=== PATIENT | male | born 1960 | race Caucasian/White ===

== ENCOUNTER 2023-04-20 12:58 | Outpatient (OUT) | payer OTHER, SELFPAY ==
--- NOTE | 2023-04-20 14:21 | RESP.RT ---
See scanned chart
--- NOTE | 2023-04-23 08:26 | W.PM.PROCNOT ---
Date of procedure: 04/20/23 Procedure: 6-Minute Walk Test Indication: Chronic respiratory failure with hypoxia Baseline data: Initial blood pressure: 111/71 Initial heart rate: 80 Initial oxygenation: SpO2 92% on room air. Initial Hiral score: 0 MMRC: 2 Procedure: A 6-Minute Walk Test was initiated according to standard protocol. The patient ambulated for a total of 6 minutes with the lowest documented SpO2 measured at 89% on room air with a maximum heart rate of 103. The maximum Hiral score was 9. Symptoms reported: Dyspnea and weakness. During recovery, blood pressure was 109/69 with a heart rate of 81. SpO2 was 92% on room air, with Hiral score 3. Total number of stops: 2. Total distance walked was 213m, which was 40% of predicted walk distance. Impressions: No ambulatory desaturations. Reduced walk distance. Recommendations: No supplemental oxygen indicated with ambulation. Clinical correlation required.
== END 2023-04-20 12:59 | disposition home or self-care (01) ==
LOC: CARD 13:01
PROVIDERS: Visit Provider Internal Medicine
DX: J96.11 Chronic respiratory failure with hypoxia (principal)
CPT/HCPCS: 94618; 99406

== ENCOUNTER 2023-05-31 08:24 | Outpatient (OUT) | payer OTHER, SELFPAY ==
--- NOTE | 2023-05-31 08:27 | CT_ITS ---
[address] [address] Patient Name: STEFAN VELASQUEZ MRN: [id number] date: 1960 Sex: M Assigned Patient Location: CT Current Patient Location: Accession/Order Number: [id number] Exam Date: 05/31/2023 08:31 Report Date: 06/01/2023 07:11 At the request of: MARY HURST Procedure: CT lung screening low-dose EXAMINATION: CT lung screening low-dose HISTORY: Nicotine Dependence F17.219 COMPARISON: CT chest 11/25/2021 TECHNIQUE: Axial, Coronal, and Sagittal images were created without the administration of IV contrast material. Dose reduction techniques were achieved by using automated exposure control and/or adjustment of mA and/or kV according to patient size and/or use of iterative reconstruction technique. FINDINGS: LUNGS: Area of chronic changes within lateral right lung base which appears slightly more nodular on today's study, 7 mm in diameter. New pleural-based 23 x 10 mm opacity within posterior medial left lung base. Stable areas of scarring throughout the lungs. Moderate emphysematous changes. PLEURA: No mass, effusion, or pneumothorax. VASCULATURE: No abnormality. REHAN: No mass or pathologic adenopathy. MEDIASTINUM: No mass or pathologic adenopathy. CARDIAC: No enlargement, pericardial thickening, or significant calcification. AORTA: No aneurysm or dissection. CHEST WALL: No mass or axillary adenopathy BONES: No bone lesion or fracture. LIMITED ABDOMEN: Stable cyst versus hemangioma within left hepatic lobe. Limited images of the upper abdomen. OTHER: Negative. CT/CT lung screening low-dose IMPRESSION: 1. Lung-RADS Category 3- Probably benign. Probably benign finding(s)- short term follow up suggested; includes nodules with a low likelihood of becoming a clinically active cancer. Six month LDCT. Electronically authenticated by: BRYCE RAMOS Date: 06/01/2023 07:11
== END 2023-05-31 08:25 | disposition home or self-care (01) ==
LOC: CT 08:24
PROVIDERS: Visit Provider Internal Medicine
DX: F17.219 Nicotine dependence, cigarettes, with unspecified nicotine-induced disorders (principal)
CPT/HCPCS: 71271

== ENCOUNTER 2023-11-13 09:48 | Outpatient (OUT) | payer OTHER, SELFPAY ==
--- OUTSIDE RECORDS SUMMARY | 2023-11-13 10:00 | XMS_ITS | CCD ---
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 Franki Rangel III Primary Care [facility] reddy [facility], Dr. Kartik Reese Attending Unavailable Filiberto, Dr. Hunter Attending Unavaila ridge De Los Santos, Dr. Hunter Attending Unavaila ridge De Los Santos, Dr. Hunter Attending Unavaila Ami Webb Attending Unavailable Ami Wood Attending Unavailable Ami Wood Referring Unavailable Juan Carlos FAITH, Dr. Franki Barclay Primary Care Jazmine blakely Unavailable Unavailable Franki Rangel DO Primary Care Provider Franki Ragnel DO Primary Care Provider [phone] Johanna Lang Unavailable Unavailable Festus Bryan Consulting Unavailable Kevyn Tapia Attending Unavailable eKvyn Tapia Admitting Unavailable Festus Bryan Consulting Unavailable Festus Bryan Consulting Unavailable Camille Muniz Attending Unavailable Medications Current Medications Medication Drug Class(es) Dates Sig (Normalized) Sig (Original) acetaminophen 325 mg oral tablet (1 source) Start: 11-10-2022 take 2 tablets by mouth every six hours as needed for pain acetaminophen 325 mg Tab 650 mg = 2 tab(s), Oral, q6hr, PRN Pain, Refills(s) 0 Start Date: 11/10/22 Status: Ordered aspirin 81 mg delayed release oral tablet (15 sources) Platelet Aggregation Inhibitor, Nonsteroidal Anti-inflammatory Drug Start: 07-18-2021 take 1 tablet by mouth once daily aspirin 81 mg Oral EC Tab 81 mg = 1 tab(s), Oral, Daily, # 30 tab(s), Refills(s) 0, Pharmacy: [facility] #[id number], 185, cm, 11/08/22 4:57:00 EDT, Height/Length Dosing, 86, kg, 11/08/22 4:57:00 EDT, Weight Dosing Start Date: 11/10/22 Status: Ordered take 2 tablets by mouth once radha ly aspirin 81 mg EC tablet Take 2 tablets (162 mg) by mouth once daily. 0 Active atorvastatin 20 mg oral tablet (15 sources) HMG-CoA Reductase Inhibitor Start: 08-20-2017 take 1 tablet by mouth once daily atorvastatin 20 mg Tab 20 mg = 1 tab(s), Oral, Daily, Refills(s) 0, High cholesterol Start Date: 08/20/17 Status: Ordered azithromycin 500 mg oral tablet (2 sources) Macrolide Antimicrobial Start: 11-10-2022 End: 11-13-2022 take 1 tablet by mouth once daily azithromycin 500 mg oral tablet 500 mg = 1 tab(s), Oral, Daily, X 3 day(s), # 3 tab(s), Refills(s) 0, Pharmacy: [facility] #[id number], 185, cm, 11/08/22 4:57:00 EDT, Height/Length Dosing, 86, kg, 11/08/22 4:57:00 EDT, Weight Dosing Start Date: 11/10/22 Stop Date: 11/13/22 Status: Ordered Start: 07-08-2022 End: 07-13-2022 take 1 tablet by mouth once daily azithromycin 500 mg oral tablet 500 mg = 1 tab(s), Oral, Daily, X 5 day(s), # 5 tab(s), Refills(s) 0, Pharmacy: [facility] #[id number], 185, cm, 07/05/22 1:16:00 EST, Height/Length Dosing, 86.8, kg, 07/05/22 1:16:00 EST, Weight Dosing Start Date: 07/08/22 Stop Date: 07/13/22 Status: Ordered escitalopram 10 mg oral tablet (8 sources) Serotonin Reuptake Inhibitor Start: 08-15-2021 take 1 tablet by mouth once daily escitalopram 10 mg Tab 10 mg = 1 tab(s), Oral, Daily, Refills(s) 0, Depression Start Date: 08/15/21 Status: Ordered take 1 tablet by mouth once marlyn y escitalopram (Lexapro) 20 mg tablet Take 1 tablet (20 mg) by mouth once daily. 0 Active 12 hr guaiFENesin 600 mg extended release oral tablet (4 sources) Start: 11-10-2022 take 1 tablet by mouth twice daily Mucinex 600 mg Tab-ER 600 mg = 1 tab(s), Oral, BID, # 60 tab(s), Refills(s) 0, Pharmacy: [facility] #[id number], 185, cm, 11/08/22 4:57:00 EDT, Height/Length Dosing, 86, kg, 11/08/22 4:57:00 EDT, Weight Dosing Start Date: 11/10/22 Status: Ordered Start: 07-08-2022 take [address] [facility] twice daily Mucinex 600 mg Tab-ER 1,200 mg = 2 tab(s), Oral, BID, # 20 tab(s), Refills(s) 0, Pharmacy: [facility] #[id number], 185, cm, 07/05/22 1:16:00 EST, Height/Length Dosing, 86.8, kg, 07/05/22 1:16:00 EST, Weight Dosing Start Date: 07/08/22 Status: Ordered 24 hr isosorbide mononitrate 30 mg extended release oral tablet (16 sources) Nitrate Vasodilator Start: 07-18-2021 End: 05-08-2023 take 1 tablet by mouth once daily isosorbide mononitrate 30 mg ER Tab 30 mg = 1 tab(s), Oral, Daily, # 30 tab(s), Refills(s) 0, Pharmacy: [facility] #[id number], 193, cm, 07/18/21 7:39:00 EST, Height/Length Dosing, 94.4, kg, 07/18/21 7:39:00 EST, Weight Dosing Start Date: 07/18/21 Status: Ordered methylPREDNISolone 4 mg oral tablet (2 sources) Corticosteroid Start: 07-08-2022 End: 07-14-2022 Medrol 4 mg Tab = 1 packet(s), Oral, As Directed, as directed on package labeling, X 6 day(s), # 21 tab(s), Refills(s) 0, Pharmacy: [facility] #[id number], 185, cm, 07/05/22 1:16:00 EST, Height/Length Dosing, 86.8, kg, 07/05/22 1:16:00 EST, Weight Dosing Start Date: 07/08/22 Stop Date: 07/14/22 Status: Ordered Nicotine System Kit transdermal film, extended release (1 source) Start: 11-10-2022 End: 12-08-2022 Nicotine System Kit transdermal film, extended release 1 EA, TransDermal, Daily for 28 day(s), 1 kit(s), Refill(s) 0, [facility] #[id number], 185, cm, 11/08/22 4:57:00 EDT, Height/Length Dosing, 86, kg, 11/08/22 4:57:00 EDT, Weight Dosing Start Date: 11/10/22 Stop Date: 12/08/22 Status: Ordered Nitro 0.4 mg Tab (5 sources) Start: 01-31-2021 Nitro 0.4 mg Tab = 1 tab(s), SubLingual, q5min, PRN Chest pain, # 25 tab(s), Refills(s) 3 Start Date: 01/31/21 Status: Ordered nitroglycerin 0.4 mg/actuat mucosal spray (8 sources) Nitrate Vasodilator Start: 01-31-2021 Nitro 0.4 mg Tab = 1 tab(s), SubLingual, q5min, PRN Chest pain, # 25 tab(s), Refills(s) 3 Start Date: 01/31/21 Status: Ordered nitroglycerin (N itrostat) 0.[address] 1 tablet (0.4 mg) under the tongue every 5 minutes if needed for chest pain. FOR UP TO 3 DOSES NEEDED FOR CHEST PAIN.CALL 911 IF PAIN PERSISTS. 0 Active pantoprazole 40 mg delayed release oral tablet (3 sources) Proton Pump Inhibitor Start: 11-10-2022 End: 12-10-2022 take 1 tablet by mouth once daily Pantoprazole [address] Tab 40 mg = 1 tab(s), Oral, Daily, X 30 day(s), # 30 tab(s), Refills(s) 0, Pharmacy: [facility] #[id number], 185, cm, 11/08/22 4:57:00 EDT, Height/Length Dosing, 86, kg, 11/08/22 4:57:00 EDT, Weight Dosing Start Date: 11/10/22 Stop Date: 12/10/22 Status: Ordered Start: 01-09-2021 take 1 tablet by benny th once daily Pantoprazole [address] Tab 40 mg = 1 tab(s), Oral, Daily, # 30 tab(s), Refills(s) 0, Pharmacy: [facility] #[id number], 193, cm, 01/08/21 21:30:00 EDT, Height/Length Dosing, 97.5, kg, 01/08/21 21:30:00 EDT, Weight Dosing Start Date: 01/09/21 Status: Ordered polyethylene glycol 3350 744762 mg / potassium chloride 1480 mg / sodium bicarbonate 5720 mg / sodium chloride 59025 mg powder for oral solution (2 sources) Osmotic Laxative Start: 07-13-2022 NuLYTELY Reeder oral powder for reconstitution See Instructions, 1 EA, Refill(s) 0, Prior to colonoscopy., [facility] #[id number], 185, cm, 07/13/22 9:08:00 EST, Height/Length Dosing, 86.7, kg, 07/13/22 9:08:00 EST, Weight Dosing Start Date: 07/13/22 Status: Ordered predniSONE 20 mg oral tablet (2 sources) Start: 10-25-2023 End: 10-30-2023 take 3 tablets by mouth once daily predniSONE 20 mg Tab 60 mg = 3 tab(s), Oral, Daily, X 5 day(s), # 15 tab(s), Refills(s) 0, Pharmacy: [facility]/pharmacy #[id number], 193, cm, 10/25/23 0:25:00 EDT, Height/Length Dosing, 98, kg, 10/25/23 0:25:00 EDT, Weight Dosing Start Date: 10/25/23 Stop Date: 10/30/23 Status: Ordered Start: 11-10-2022 predniSONE 10 mg Tab 0 = 1 -, Oral, As Directed, Take 5 tabs by mouth daily x5 days, 4 daily x5 days, 3 daily x5 days, 2 daily x5 days, then 1 tab daily x5 days., # 75 tab(s), Refills(s) 0, Pharmacy: [facility] #[id number], 185, cm, 11/08/22 4:57:00 EDT, Height/Lengt... Start Date: 11/10/22 Status: Ordered 12 hr ranolazine 500 mg extended release oral tablet (14 sources) Anti-anginal Start: 01-08-2023 End: 05-08-2023 take 1 tablet by mouth every twelve hours ranolazine (Ranexa) 500 mg 12 hr tablet Indications: Coronary artery disease involving [employer] [employer] coronary artery of [place] heart with other form of angina pectoris (CMS/HCC) , Prinzmetal angina (CMS/HCC) Take 1 tablet (500 mg) by mouth every 12 hours. 180 tablet 3 05/08/2023 Active Start: 07-18-2021 take 1 tablet by benny th twice daily ranolazine 500 mg oral ER Tab 500 mg = 1 tab(s), Oral, BID, # 60 tab(s), Refills(s) 0, Pharmacy: [facility] #[id number], 193, cm, 07/18/21 7:39:00 EST, Height/Length Dosing, 94.4, kg, 07/18/21 7:39:00 EST, Weight Dosing Start Date: 07/18/21 Status: Ordered Trelegy Ellipta inhalation powder (6 sources) Start: 08-09-2020 take 1 puff(s) by inhalation once daily Trelegy Ellipta inhalation powder = 1 puff(s), Inhalation, Daily, Refills(s) 0, COPD Start Date: 08/09/20 Status: Ordered Ventolin HFA 90 mcg/inh Aerosol (6 sources) Start: 09-21-2017 take 2 puff(s) by inhalation every four hours for wheezing Ventolin HFA 90 mcg/inh Aerosol 2 puff(s), Inhalation, q4hr for wheezing, 18 gram, Refill(s) 0 Start Date: 09/21/17 Status: Ordered Completed/Discontinued Medications Medication Drug Class(es) Dates Sig (Normalized) Sig (Original) albuterol 0.833 mg/ml / ipratropium bromide 0.167 mg/ml inhalation solution (12 sources) Anticholinergic, beta2-Adrenergic Agonist Start: 12-07-2021 take 3 mL by inhalation four times daily Ipratropium-Albut jay 0.5-2.5 (3) MG/3ML Inhalation Solution INHALE 3 ML VIA NEBULIZER FOUR TIMES DAILY Quantity: 360 Refills: 0 Ordered: 03-Jan-2022 DO Start : 07-Dec-2021 Active Start: 08-16-2021 take 3 mL by inhalat ion four times daily DuoNeb 2.5 mg-0.5 mg/3 mL Soln-Inh 3 mL, Inhalation, QID Shortness of breath or wheezing, Refill(s) 0 Start Date: 08/16/21 Status: Ordered 30 actuat fluticasone furoate 0.1 mg/actuat / umeclidinium 0.0625 mg/actuat / vilanterol 0.025 mg/actuat dry powder inhaler (6 sources) Anticholinergic, Corticosteroid, beta2-Adrenergic Agonist Start: 12-17-2021 Trelegy Ellipta 100-62.5-25 MCG/ACT Inhalation Aerosol Powder Breath Activated Quantity: 60 Refills: 0 Ordered: 17-Dec-2021 DO Start : 17-Dec-2021 Active fluticasone-umec lidin-vilanter (Trelegy Ellipta) 100-62.5-25 mcg blister with device Inhale once daily. 0 Active omeprazole 40 mg delayed release oral capsule (8 sources) Proton Pump Inhibitor Start: 07-13-2022 End: 10-11-2022 take 1 capsule by mouth once daily Omeprazole 40 MG Oral Capsule Delayed Release TAKE 1 CAPSULE Daily Quantity: 30 Refills: 0 Ordered: 13-Jul-2022 DO Start : 13-Jul-2022 Active Problems Active Problems Problem Classification Problem Date Documented Date Episodic/Chronic Abdominal pain (5 sources) Epigastric pain; Translations: [Epigastric pain] Onset: 07-13-20 Episodic Chronic obstructive pulmonary disease and bronchiectasis (13 sources) Chronic obstructive lung disease; Translations: [Chronic obstructive pulmonary disease, unspecified] Onset: 05-24-20 Chronic Coronary atherosclerosis and other heart disease (20 sources) Prinzmetal angina; 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] Onset: 11-09-19 Chronic Cystic fibrosis (1 source) Cystic fibrosis 10-25-2023 Chronic Deficiency and other anemia (1 source) Anemia; Translations: [Anemia, unspecified] Onset: 11-10-19 Episodic Disorders of lipid metabolism (20 sources) Hyperlipidemia; Translations: [Other and unspecified hyperlipidemia] Onset: 05-24-20 Chronic Esophageal disorders (20 sources) Gastroesophageal reflux disease without esophagitis; Translations: [Gastro-esophageal reflux disease without esophagitis] Onset: 05-24-20 Chronic Essential hypertension (9 sources) Essential hypertension; Translations: [Essential (primary) hypertension] Onset: 05-24-20 Chronic Mood disorders (1 source) Depressive disorder; Translations: [Depression, unspecified] Onset: 11-09-19 Chronic Nonspecific chest pain (10 sources) Chest pain; Translations: [Chest pain, unspecified] Onset: 05-06-20 Resolved : 05-08-2005-08-2023 Episodic Other aftercare (1 source) Long-term current use of drug therapy; Translations: [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] Onset: 11-10-19 Episodic Other and unspecified benign neoplasm (11 sources) History of polyp of colon; Translations: [Personal history of colonic polyps] Onset: 07-13-2004-20-2021 Episodic Other circulatory disease (6 sources) Low blood pressure; Translations: [Hypotension, unspecified] Onset: 05-06-2005-06-2023 Episodic Other gastrointestinal disorders (7 sources) Dysphagia; Translations: [Dysphagia, unspecified] Onset: 07-13-2004-20-2021 Episodic Other gastrointestinal disorders (1 source) H/O: gastrointestinal disease; Translations: [Personal history of other diseases of the digestive system] Onset: 07-13-20 Episodic Other hematologic conditions (1 source) Abnormal finding on evaluation procedure; Translations: [Other specified abnormalities of plasma proteins] Onset: 07-05-20 Episodic Other lower respiratory disease (8 sources) Fibrosis of lung; Translations: [Pulmonary fibrosis, unspecified] Onset: 05-24-20 Chronic Other lower respiratory disease (9 sources) Dyspnea on exertion; Translations: [Other respiratory abnormalities] Onset: 05-06-2005-06-2023 Episodic Other nutritional; endocrine; and metabolic disorders (1 source) Body mass index 25-29 - overweight; Translations: [Body Mass Index 25.0-25.9, adult] Episodic Other nutritional; endocrine; and metabolic disorders (9 sources) Overweight; Translations: [Overweight] Onset: 05-06-2005-06-2023 Episodic Other nutritional; endocrine; and metabolic disorders (8 sources) Overweight in adulthood with body mass index of 25 or more but less than 30; Translations: [Body Mass Index 25.0-25.9, adult] Onset: 05-06-2005-06-2023 Episodic Other nutritional; endocrine; and metabolic disorders (1 source) Abnormal weight loss; Translations: [Abnormal weight loss] Onset: 07-13-20 Episodic Other nutritional; endocrine; and metabolic disorders (4 sources) Unintentional weight loss 07-13-2022 Episod ic Residual codes; unclassified (3 sources) Tobacco user; Translations: [Tobacco use] Onset: 05-24-20 Episodic Residual codes; unclassified (2 sources) Procedure carried out on subject; Translations: [Encounter for prophylactic measures, unspecified] Onset: 05-24-20 Episodic Residual codes; unclassified (6 sources) FH: Hypercholesterolemia 10-17-2013 Episodi c Residual codes; unclassified (6 sources) Harmful pattern of use of nicotine 07-18-2021 Episodic Residual codes; unclassified (6 sources) Body mass index 20-24 - normal; Translations: [Body Mass Index between 19-24, adult] Onset: 05-06-2005-06-2023 Episodic Respiratory failure; insufficiency; arrest (adult) (8 sources) Home oxygen supply; Translations: [Chronic hypoxemic respiratory failure] Onset: 07-05-2003-21-2019 Chronic Substance-related disorders (17 sources) Smokes tobacco daily; Translations: [Tobacco use disorder] Onset: 05-06-2003-21-2019 Chronic Comment on above: 1-2 cigarettes daily ; Added secondary to d ocumentation in Social History. 3-4 cigarettes daily ; Past or Other Problems Problem Classification Problem Date Documented Date Episodic/Chronic Acute myocardial infarction (8 sources) Non-ST elevation (NSTEMI) myocardial infarction; Translations: [Myocardial infarction] Onset: 05-24-2022 Resolved: 05-08-2023 Chronic Chronic obstructive pulmonary disease and bronchiectasis (6 sources) Chronic obstructive pulmonary disease and bronchiectasis 09-15-2021 Unclassified (2 sources) Onset: 05-08-2023 05-08-2023 Results Test Name Value Interpretation Reference Range Facility [facility] 10-25-2023 Anion gap [Moles/Vol] 12 mmol/L Normal 6-16 [facility] Comment on above: Performed By: #### 2 [id number], [id number], 4561500, 52395228, 65260433, 20460664 ####[facility] [address] [place] [address] Calcium [Mass/Vol] 9.1 mg/dL Normal 8.9-11.1 [facility] Comment on above: Performed By: #### 2 231122, [id number], 5140207, 38532674, 92201495, 77223129 ####[facility] [address] [place] [address] Chloride [Moles/Vol] 105 mmol/L Normal 101-111 [facility] Comment on above: Performed By: #### 2 338340, [id number], 2520366, 09279631, 34781441, 02596060 ####[facility] [address] [place] [address] CO2 [Moles/Vol] 26 mmol/L Normal 21-31 [facility] Comment on above: Performed By: #### 2 961385, 69039938, 0033816, 37378240, 11436591, 05241644 ####[facility] [address] [place] [address] Creatinine [Mass/Vol] 0.8 mg/dL Normal 0.5-1.3 [facility] Comment on above: Performed By: #### 2 298033, 95756781, 0442971, 78238200, 36696622, 09650366 ####[facility] [address] [place] [address] Glucose [Mass/Vol] 94 mg/dL Normal 55-199 [facility] Comment on above: Performed By: #### 2 323878, 51227274, 8244908, 67120119, 26170811, 84526187 ####[facility] [address] [place] [address] Potassium [Moles/Vol] 4.0 mmol/L Normal 3.5-5.3 [facility] Comment on above: Performed By: #### 2 740478, 39559700, 3588355, 13253298, 26944677, 33943359 ####[facility] [address] [place] [address] Sodium [Moles/Vol] 139 mmol/L Normal 135-145 [facility] Comment on above: Performed By: #### 2 863932, 20721555, 7642574, 14133550, 46484169, 90900283 ####[facility] [address] [place] [address] Urea nitrogen [Mass/Vol] 7 mg/dL Normal 5-21 [facility] Comment on above: Performed By: #### 2 226438, 34778375, 7094192, 08363942, 10573851, 51837332 ####[facility] [address] [place] [address] Urea nitrogen/Creatinine [Mass ratio] 9 No Units Low 10-20 [facility] Comment on above: Performed By: #### 2 563732, 06329640, 6348762, 32893809, 01675682, 33496800 ####[facility] [address] [place] [address] BNPon 10-25-2023 Int Ctr BNP Pass Normal [facility] Comment on above: Performed By: #### 2 841817, 32818743, 5102112, 81251463, 56298949, 68217695 ####[facility] [address] [place] [address] Natriuretic peptide B (Bld) [Mass/Vol] 21 pg/mL Normal 5-80 [facility] Comment on above: Performed By: #### 2 591508, 81397718, 3135452, 21454725, 49649372, 54389264 ####[facility] [address] [place] [address] Blood Gas Art, with Lytes, G deisy, [place] 10-25-2023 a/A Ratio Art 35.00 % Normal >=0.80 [facility] Comment on above: Performed By: #### 4 [id number] ####[facility] [address] [place] [address] AaDO2 Art 132.8 mmHg High 5.0-15.0 [facility] Comment on above: Performed By: #### 4 [id number] ####[facility] [address] [place] [address] [place] Test Positive Normal [facility] Comment on above: Performed By: #### 4 [id number] ####[facility] [address] [place] [address] Base Excess Arterial 2.3 mmol/L Low >=2.8 [facility] Comment on above: Performed By: #### 4 [id number] ####[facility] [address] [place] [address] cCa2+ Art 4.69 mg/dL Normal 4.40-5.30 [facility] Comment on above: Performed By: #### 4 [id number] ####[facility] [address] [place] [address] cCl- Art 105.0 mmol/L Normal 101.0-111. 0 [facility] Comment on above: Performed By: #### 4 [id number] ####[facility] [address] [place] [address] cGlu Art 99 mg/dL Normal 55-99 [facility] Comment on above: Performed By: #### 4 [id number] ####[facility] [address] [facility] [place] [address] cK+ Art 3.7 mmol/L Normal 3.5-5.3 [facility] Comment on above: Performed By: #### 4 [id number] ####[place] [address] [place] [address] cLac Art .7 mmol/L Normal .5-2.2 [facility] Comment on above: Performed By: #### 4 [id number] ####[place] [address] [facility] [place] [address] manager intel+ Art 140.0 mmol/L Normal 135.0-145. 0 [facility] Comment on above: Performed By: #### 4 [id number] ####[place] [address] [facility] [place] [address] Device Cannula Normal [facility] Comment on above: Performed By: #### 4 [id number] ####[place] [address] [facility] [place] [address] Drawn by tmj Invalid Interpretation Code [facility] Comment on above: Performed By: #### 4 [id number] ####[place] [address] [place] [address] FCOHb Art 2.9 % Normal 1.5-4.9 [facility] Comment on above: Result Comment: Refe rence range Nonsmoker <1.5% Smoker <5.0% Heavy Smoker <9.0% Performed By: #### 4 [id number] ####[facility] [address] [place] [address] FIO2 BG 36 Invalid Interpretation Code [facility] Comment on above: Performed By: #### 4 [id number] ####[facility] [address] [place] [address] Flow 4 Invalid Interpretation Code [facility] Comment on above: Performed By: #### 4 [id number] ####[facility] [address] [place] [address] FO2Hb Art 92.5 % Low 93.0-100.0 [facility] Comment on above: Performed By: #### 4 [id number] ####[address] [address] HCO3 (Bld) [Moles/Vol] 26.3 mmol/L High 22.0-26.0 [facility] Comment on above: Performed By: #### 4 [id number] ####[address] [address] Hemoglobin (Bld) [Mass/Vol] 14.0 g/dL Normal 12.0-17.0 [facility] Comment on above: Performed By: #### 4 [id number] ####[address] [address] Oxygen saturation in Blood 95.3 % Normal 95.0-100.0 [facility] Comment on above: Performed By: #### 4 [id number] ####[address] [address] P CO2 Arterial 41.9 mmHg Normal 35.0-45.0 [facility] Comment on above: Performed By: #### 4 [id number] ####[address] [address] P O2 Arterial 71.5 mmHg Low 80.0-100.0 [facility] Comment on above: Performed By: #### 4 [id number] ####[address] [address] pH Arterial 7.419 Normal 7.350-7.45 0 [facility] Comment on above: Performed By: #### 4 [id number] ####[address] [address] Sample Site R Radial Normal [facility] Comment on above: Performed By: #### 4 [id number] ####[address] [address] Sample Type Arterial Draw Normal [facility] Comment on above: Performed By: #### 4 [id number] ####[address] [address] CBC w/ Auto Diffon 4 Basophils/100 WBC (Bld) 1.1 % Normal 0.0-2.0 [facility] Comment on above: Performed By: #### 2 474639, 07993360, 5029049, 34129404, 58835585, 66416166 ####[address] [address] Basophils/Leukocytes Auto (Bld) [Pure # fraction] 0.1 E9/L Normal 0.0-0.2 [facility] Comment on above: Performed By: #### 2 687916, 41055268, 8975983, 76515407, 39577209, 96792297 ####[address] [address] Eosinophils (Bld) [#/Vol] 0.3 E9/L Normal 0.0-0.5 [facility] Comment on above: Performed By: #### 2 878957, 05802725, 3268224, 25933620, 47916278, 07322379 ####[address] [address] Eosinophils/100 WBC (Bld) 2.7 % Normal 0.0-8.0 [facility] Comment on above: Performed By: #### 2 423082, 60811434, 9443019, 53777347, 24353521, 01583095 ####[address] [address] Erythrocyte distribution width (RBC) [Ratio] 13.8 % Normal 10.9-14.2 [facility] Comment on above: Performed By: #### 2 739569, 62007596, 7994799, 07214482, 33648211, 71346495 ####[address] [address] Hematocrit (Bld) [Volume fraction] 41.4 % Normal 37.7-49.0 [facility] Comment on above: Performed By: #### 2 665984, 52465824, 1296833, 76779125, 59138638, 82230083 ####[facility] [address] [place] [address] Hemoglobin (Bld) [Mass/Vol] 13.8 g/dL Normal 13.5-17.5 [facility] Comment on above: Performed By: #### 2 007037, 18831678, 3029084, 05002076, 81825522, 92269672 ####[place] [address] [place] [address] Lymphocytes (Bld) [#/Vol] 3.1 E9/L Normal 1.0-4.0 [facility] Comment on above: Performed By: #### 2 [id number], [id number], 9069326, [id number], [id number], [id number] ####[address] [address] Lymphocytes/100 WBC (Bld) 27.7 % Normal 14.0-50.0 [facility] Comment on above: Performed By: #### 2 852815, [id number], 7317723, 91879900, 64597420, [id number] ####[address] [address] MCH (RBC) [Entitic mass] 32.4 pg Normal 27.0-34.0 [facility] Comment on above: Performed By: #### 2 614799, 80312064, 5583672, 30487887, 86715976, [id number] ####[address] [address] MCHC (RBC) [Mass/Vol] 33.5 g/dL Normal 31.4-36.0 [facility] Comment on above: Performed By: #### 2 519470, [id number], 5227562, 79295380, 85120595, [id number] ####[place] [address] [address] MCV (RBC) [Entitic vol] 96.9 fL Normal 80.0-100.0 [facility] Comment on above: Performed By: #### 2 012475, 73487205, 0821301, 82948879, 02857598, 81741739 ####[address] [address] Monocytes (Bld) [#/Vol] 1.0 E9/L Normal 0.2-1.0 [facility] Comment on above: Performed By: #### 2 436300, 49148149, 4918892, 79005197, 47849427, 27448814 ####[address] [address] Neutrophils (Bld) [#/Vol] 6.7 E9/L Normal 2.0-7.5 [facility] Comment on above: Performed By: #### 2 948669, 42124702, 2608690, 98697526, 12758270, 26990885 ####[address] [address] Neutrophils/100 WBC (Bld) 59.6 % Normal 36.0-75.0 [facility] Comment on above: Performed By: #### 2 558568, 33293149, 5397501, 33971793, 43097703, 08098680 ####[address] [address] Platelet mean volume (Bld) [Entitic vol] 10.8 fL Normal 6.4-10.8 [facility] Comment on above: Performed By: #### 2 350264, 22710186, 0626716, 53588217, 65297593, 81656768 ####[address] [address] Platelets (Bld) [#/Vol] 200.0 E9/L Normal 150.0-500. 0 [facility] Comment on above: Performed By: #### 2 984892, 07917616, 7558469, 50470146, 42333232, 78132164 ####[facility] [address] [place] [address] RBC (Bld) [#/Vol] 4.3 E12/L Normal 4.3-5.9 [facility] Comment on above: Performed By: #### 2 521882, 78223758, 3650662, 35161807, 63270753, 30400559 ####[facility] [address] [place] [address] WBC corrected for nucl RBC Auto (Bld) [#/Vol] 11.2 E9/L High 4.0-11.0 [facility] Comment on above: Performed By: #### 2 632788, 02871932, 0119049, 67533843, 11509336, 97525277 ####[facility] [address] [place] [address] CHEMISTRYOrdered By: Heather Olsen on 10-25-2023 Troponin 11.00 pg/mL Low 15.90 - 38.40 pg/mL [facility] Comment on above: Interpretive Data: T he 95% CI (Confidence Interval) PPV (Positive Predictive Value) for myocardial infarction in females is 38 pg/mL, in males 51 pg/mL. The results should be used in conjunction with clinical conditions of myocardial infarction. (Access High Sensitivity Troponin I Instructions For Use, [place], March 2018) CHEMISTRYOrdered By: SYSTEM SYSTEM on 10-25-2023 Anion gap [Moles/Vol] 12 mmol/L Normal 6 - 16 mEq/L [facility] Calcium [Mass/Vol] 9.1 mg/dL Normal 8.9 - 11. 1 mg/dL [facility] Chloride [Moles/Vol] 105 mmol/L Normal 101 - 1 11 mmol/L [facility] CO2 [Moles/Vol] 26 mmol/L Normal 21 - 31 mmol/L [facility] Creatinine [Mass/Vol] 0.8 mg/dL Normal 0.5 - 1.3 mg/dL [facility] eGFR 100 mL/min/1.73 m2 Normal >=59mL/mi n /1.73 m2 [facility] Glucose [Mass/Vol] 94 mg/dL Normal 55 - 199 mg/dL [facility] Potassium [Moles/Vol] 4.0 mmol/L Normal 3.5 - 5.3 mmol/L [facility] Sodium [Moles/Vol] 139 mmol/L Normal 135 - 145 mmol/L [facility] Troponin 5.30 pg/mL Low 15.90 - 38.40 pg/mL [facility] Comment on above: Interpretive Data: T he 95% CI (Confidence Interval) PPV (Positive Predictive Value) for myocardial infarction in females is 38 pg/mL, in males 51 pg/mL. The results should be used in conjunction with clinical conditions of myocardial infarction. (Access High Sensitivity Troponin I Instructions For Use, [place], March 2018) Urea nitrogen [Mass/Vol] 7 mg/dL Normal 5 - 21 mg/dL [facility] Urea nitrogen/Creatinine [Mass ratio] 9 mg/mg Low 10 - 20 Remisol Chem CHEMISTRYOrdered By: Gallo mckinnon on 10-25-2023 Natriuretic peptide B (Bld) [Mass/Vol] 21 pg/mL Normal 5 - 80 pg/mL [facility] COAGULATIONOrdered By: Gallo Stephenson on 10-25-2023 aPTT Coag (PPP) [Time] 46.4 s High 25.1 - 36.5 second(s) [facility] Comment on above: Interpretive Data: P arameter 15 days - 4 weeks 1 - 5 months 6 - 11 months 1 - 5 years 6 - 10 years 11 - 17 years PTT Mean: 35.4 (27.6-45.6) Mean: 33.5 (24.8-40.7) Mean: 32.4 (25.1-40.7) Mean: 31.6 (24.0-39.2) Mean: 31.6 (26.9-38.7) Mean: 31.0 (24.6-38.4) Pediatric Reference ranges were obtained from a study by Tavon Little et al. prepared from 1437 samples obtained at 7 different centers using the same coagulation reagent and instrumentation as [facility]. Currently there are no coagulation studies available worldwide for children to 14 days, and no normal ranges. Heparin therapeutic range (represented by Anti-Factor Xa activity of 0.2 - 0.4 U/mL) corresponds to PTT of 56.6 - 109.0 sec. INR Coag (PPP) [Relative time] 1.16 {INR} Invalid Interpretation Code [facility] Comment on above: Interpretive Data: I NR results are specifically intended to assess patients stabilized on long-term Anticoagulation therapy suggested INR s Less Intensive Anticoagulation 2.0 3.0 Conventional Range 3.0 4.5 PT Coag (PPP) [Time] 13.0 s High 9.4 - 1 2.5 second(s) [facility] Comment on above: Interpretive Data: 1 5 days - 4 weeks 1 - 5 months 6 -11 months 1 5 years 6 10 years 11 -17 years Mean: 11.2 (9.5 12.6) Mean: 11.0 (9.7 12.8) Mean: 11.0 (9.8 13.0) Mean: 11.3 (9.9 13.4) Mean: 11.7 (10.0 14.6) Mean: 11.8 (10.0 - 14.1) Pediatric Reference ranges were obtained from a study by patricia Casiano al. prepared from 1437 samples obtained at 7 different centers using the same coagulation reagent and instrumentation as [facility]. Currently there are no coagulation studies available worldwide for children to 14 days, and no normal ranges. Consent for Treatmenton 10-05 Consent for Treatment [id number] Normal [facility] Discharge Instructionson Discharge Instructions [id number] Normal [facility] ED Clinical Summaryon 2023 ED Clinical Summary (Inserted Image. Jaclyn ble to display) [place] [id number] ED Clinical Summary Person Information Name: STEFAN WOOD/[facility] Age: 62 Years : 1960 Sex: Male Language: Sammarinese PCP: Franki Rangel III, DO Marital Status: Single MRN: Visit Id: Visit Reason: Headache; Chest pain; Shortness of breath; SOB Speciality: Acuity: 2 Enc Type: Emergency Med Service: Emergency Arrival: 10/25/2023 00:11:56 Discharge: 10/25/2023 14:07:13 LOS: 000 13:56 Checkin: 10/25/2023 00:11:56 Checkout: 10/25/2023 14:07:13 Dispo Type: Home (Routine DC) EVENTS: Event Name Event Status Request Date/Time Start Date/Time Complete Date/Time Arrive Complete 10/25/2023 00:11:56 10/25/2023 00:11:56 10/25/2023 00:11:56 Document Home Meds Request 10/25/2023 00:11:56 Triage Complete 10/25/2023 00:11:56 10/25/2023 00:25:45 10/25/2023 00:25:45 Dr Exam Complete 10/25/2023 00:12:23 10/25/2023 00:12:23 10/25/2023 00:12:23 Registration Complete 10/25/2023 00:12:23 10/25/2023 00:24:41 10/25/2023 02:20:46 EKG Complete 10/25/2023 00:13:20 10/25/2023 00:19:34 RN Exam Complete 10/25/2023 00:23:53 10/25/2023 00:23:53 10/25/2023 00:23:53 Bed Assign Complete 10/25/2023 00:24:41 10/25/2023 00:24:41 10/25/2023 00:24:41 Meds Admin Complete 10/25/2023 00:37:39 10/25/2023 00:55:46 Pending Labs Complete 10/25/2023 00:37:39 10/25/2023 04:47:11 RT Tx/ABG Complete 10/25/2023 00:37:39 10/25/2023 01:04:38 10/25/2023 01:04:38 Lab Complete 10/25/2023 00:37:39 10/25/2023 01:45:42 Patient Care Complete 10/25/2023 00:37:39 10/25/2023 00:50:48 X-Ray Complete 10/25/2023 00:37:39 10/25/2023 01:09:22 RT Request 10/25/2023 00:37:39 RT Tx/ABG Complete 10/25/2023 00:37:41 10/25/2023 01:04:42 10/25/2023 01:04:42 RT Tx/ABG Complete 10/25/2023 00:37:41 10/25/2023 01:04:35 10/25/2023 01:04:35 Wet Read Request 10/25/2023 01:09:22 Pending Labs Complete 10/25/2023 01:14:48 10/25/2023 01:14:48 10/25/2023 01:39:09 Lab Complete 10/25/2023 01:14:48 10/25/2023 01:14:48 10/25/2023 01:39:09 Reg Complete Request 10/25/2023 02:20:46 Reg Bed Request Complete 10/25/2023 02:20:46 10/25/2023 02:20:46 10/25/2023 02:20:46 Consult Request 10/25/2023 02:51:21 Pending Labs Complete 10/25/2023 05:31:08 10/25/2023 05:31:08 10/25/2023 05:31:09 Dr Exam Complete 10/25/2023 07:55:08 10/25/2023 07:55:08 10/25/2023 07:55:08 Registration Request 10/25/2023 07:55:08 Discharge Complete 10/25/2023 13:09:04 10/25/2023 14:07:20 10/25/2023 14:07:20 Transfer Complete 10/25/2023 14:07:20 10/25/2023 14:07:20 10/25/2023 14:07:20 ADDRESS: [address] [facility] [id number] PHYS DOC NOTES: Addendum by David Abarca DO on October 25, 2023 13:09:44 EDT MEDICAL INFORMATION: Prescriptions Given: New Medications [id number], [address], [place] [id number], [phone] predniSONE (predniSONE 20 mg Tab) 3 Tablets By Mouth every day for 5 Days. Refills: 0. Medications to Continue with No Changes Other Medications albuterol (Ventolin HFA 90 mcg/inh Aerosol) 2 Puffs Inhalation every 4 hours as needed for wheezing. albuterol-ipratropium (DuoNeb 2.5 mg-0.5 mg/3 mL Soln-Inh) 3 Milliliter Inhalation 4 times a day as needed Shortness of breath or wheezing. aspirin (aspirin 81 mg Oral EC Tab) 1 Tablets By Mouth every day. Refills: 0. atorvastatin (atorvastatin 20 mg Tab) 1 Tablets By Mouth every day. escitalopram (escitalopram 10 mg Tab) 1 Tablets By Mouth every day. fluticasone/umeclidinium/vi lanterol (Trelegy Ellipta inhalation powder) 1 Puffs Inhalation every day. isosorbide mononitrate (isosorbide mononitrate 30 mg ER Tab) 1 Tablets By Mouth every day. Refills: 0. nitroglycerin (Nitro 0.4 mg Tab) 1 Tablets Sublingual every 5 minutes as needed Chest pain. ranolazine (ranolazine 500 mg oral ER Tab) 1 Tablets By Mouth 2 times a day. Refills: 0. PATIENT EDUCATION INFORMATION: Instructions: Chronic Obstructive Pulmonary Disease Follow up: With: Address: When: Franki Rangel [address] [place] [address] Business (1) In 3 days 10/28/2023 Comments: Call the office of your primary care doctor to arrange for follow-up within the above-stated timeframe. Follow-up with your primary care doctor about this ED visit. You should review your labs, imaging, and diagnoses from this ED visit with your primary care physician. There are occasionally non-emergent findings that require additional follow-up after your ED visit. If you were prescribed medications you should discuss possible side-effects and drug interactions with your pharmacist. Call 911 or go to the nearest Emergency Department if you develop any new or worsening symptoms. Seek immediate medical attention if you develop: worsening shortness of breath, difficulty breathing, chest pain, nausea, vomiting, weakness, numbness, tingling, excessive sweating, loss of motion in your arms or legs, or any new or worsening symptoms. DIAGNOSI (more content not included)... [facility] ED Note-Physicianon 10-25-19 ED Note-Physician Basic Information Time Seen: Camille Muniz DO 10/25/2023 00:12 Chief Complaint SOB all day, worsened at 2215 after walking to bathroom. Mid sternal chest pain since yesterday. Reports dizziness amd headache. Fire department found gas leak in apartment this evening. Hx of fibrosis and COPD, uses 4L 02 all the time. History of Present Illness Patient is a 62-year-old male with past medical history of COPD, pulmonary fibrosis on a baseline 4 L of oxygen presenting to the ED for evaluation of shortness of breath and chest tightness. Patient states he has had shortness of breath all day however progressively worsened 10:00 while walking to the bathroom. Patient also notes that he has been having dizziness and headache. EMS was called and fire department was called to his house was found to have a gas leak in his apartment.. Patient states he recently moved into this does not have any family in the area that he can stay with. Patient denies recent illness, fevers, chills, nausea or vomiting. Review of Systems A 10 point review of systems is negative except as noted above. Medical and Surgical History: Reviewed and noted Social history: Lives at home Tobacco: Denies Physical Exam Vitals & Measurements T: 36.5 ?C(Oral) HR: 74(Monitored) RR: 14 BP: 146/88 SpO2: 95% HT: 193 cm WT: 98 kg BMI: 26.31 General: Well developed, non toxic appearing, no acute distress HEENT: Head atraumatic, Mucosa moist, hearing grossly normal Neck: No JVD, tracheal deviation Cardiac: Regular rate, rhythm, no murmurs, or gallops, 2+ radial pulses Respiratory: Mild end expiratory wheezing on examination, normal respiratory effort patient speaking in full sentences without difficulty Abdomen: Soft non tender, no rebound or guarding, no peritoneal signs Extremities: No edema noted in the LE B/L, no tenderness to palpation Neurologic: Alert and oriented, speech clear Skin: No rashes or lesions Psych: Appropriate mood and behavior Medical Decision Making MEDICAL DECISION MAKING Number and Complexity of Problems Differential Diagnosis: [] MDM Data External documents reviewed: [] My EKG interpretation: [] My CT interpretation: [] My X-ray interpretation: [] My Ultrasound interpretation: [] Decision rules/scores evaluated: Heart Score for Major Cardiac Event History: Example factors for history - pattern of chest pain, onset, duration, relation with exercise, stress or cold, localization, concominant symptoms. reaction to sublingual nitrates, [] Highly suspicious +2 [] Moderately suspicious +1 [X] Slightly suspicious 0 EKG: [] Significant ST-Depression +2 [] Non specific repolarization disturbance +1 [X] Normal 0 Age: [X] >= 65 +2 [] 45-65 + 1 [] <45 0 Risk Factors: (HLD, HTN, DM, Cigarette Smoking, Pos Family Hx, Obesity) [] >3 risk factors or hx of atheroslerotic disease + 2 [X] 1-2 risk factors + 1 [] No risk factors known 0 Troponin: [] >= 3X normal + 2 [] 1-3X normal + 1 [X] <= Normal 0 ---- [X] 0-3 Points 0.9 - 1.7% risk of major adverse cardiac event in 6 weeks [] 4-6 Points 12-16.6% risk of major adverse cardiac event in 6 weeks [] 7-10 Points 50-65% risk of major adverse cardiac event in 6 weeks ---- [X] 0-3 Points with 2 sets of negative cardiac markers <1% risk of major adverse cardiac event in 30 days. ---- Discussed with: [] Treatment and Disposition ED Course: Patient is a 62-year-old male presenting to the ED for evaluation of carbon monoxide exposure, shortness of breath and chest tightness. Patient is nontoxic-appearing on arrival, no acute distress. Laboratory evaluation is obtained, chest x-ray is ordered. Patient is given 2 breathing treatments, Solu-Medrol in the ED. Blood gas was performed shows normal collarbone monoxide level, pO2 is 71 on his baseline 4 L of oxygen otherwise is unremarkable. Laboratory evaluation obtained is negative, chest x-ray shows hyperinflation of the lungs consistent with COPD. On reevaluation patient reports an improvement of his symptoms after breathing treatment. I believe patient's chest pain likely related to COPD exacerbation. His repeat troponin was negative. Due to the fact that patient does not have a safe place to go as he does have a gas leak within his apartment patient will be signed out to oncoming physician for a social work consult. Shared decision making: [] Code status: [] Assessment/Plan Chest pain (R07.9: Chest pain, unspecified) COPD exacerbation (J44.1: Chronic obstructive pulmonary disease with (acute) exacerbation) Orders: albuterol-ipratropium, 6 mL, Soln-Inh, Inhalation, Once, Stop date 10/25/23 0:36:00 EDT, STAT, Start date 10/25/23 0:36:00 EDT methylPREDNISolone, 125 mg = 2 mL, Injection, IV Push, Once, Stop date 10/25/23 0 (more content not included)... [facility] Comment on above: Result Comment: Elec tronically Signed By: David Abarca DO.emma\Date and Time Signed: 10/25/23 13:10 EDT ED Patient Education Noteon 10-25-2023 ED Patient Education Note Pulmonary Medicine Chronic Obstructive Pulmonary Disease Chronic obstructive pulmonary disease (COPD) is a long-term (chronic) condition that affects the lungs. COPD is a general term that can be used to describe many different lung problems that cause lung inflammation and limit airflow, including chronic bronchitis and emphysema. If you have COPD, your lung function will probably never return to normal. In most cases, it gets worse over time. However, there are steps you can take to slow the progression of the disease and improve your quality of life. What are the causes? This condition may be caused by: ? Smoking. This is the most common cause. ? Certain genes passed down through families. What increases the risk? The following factors may make you more likely to develop this condition: ? Being exposed to secondhand smoke from cigarettes, pipes, or cigars. ? Being exposed to chemicals and other irritants, such as fumes and dust in the work environment. ? Having chronic lung conditions or infections. What are the signs or symptoms? Symptoms of this condition include: ? Shortness of breath, especially during physical activity. ? Chronic cough with a large amount of thick mucus. Sometimes, the cough may not have any mucus (dry cough). ? Wheezing and rapid breathing. ? Solomon or bluish discoloration (cyanosis) of the skin, especially in the fingers, toes, or lips. ? Feeling tired (fatigue). ? Weight loss. ? Chest tightness. ? Frequent infections. ? Episodes when breathing symptoms become much worse (exacerbations). At the later stages of this disease, you may have swelling in the ankles, feet, or legs. How is this diagnosed? This condition is diagnosed based on: ? Your medical history. ? A physical exam. You may also have tests, including: ? Lung (pulmonary) function tests. This may include a spirometry test, which measures your ability to exhale properly. ? Chest X-ray. ? CT scan. ? Blood tests. How is this treated? This condition may be treated with: ? Medicines. These may include inhaled rescue medicines to treat acute exacerbations as well as medicines that you take long-term (maintenance medicines) to prevent flare-ups of COPD. ? Bronchodilators help treat COPD by dilating the airways to allow increased airflow and make your breathing more comfortable. ? Steroids can reduce airway inflammation and help prevent exacerbations. ? Smoking cessation. If you smoke, your health care provider may ask you to quit, and may also recommend therapy or replacement products to help you quit. ? Pulmonary rehabilitation. This may involve working with a team of health care providers and specialists, such as respiratory, occupational, and physical therapists. ? Exercise and physical activity. These are beneficial for nearly all people with COPD. ? Nutrition therapy to gain weight, if you are underweight. ? Oxygen. Supplemental oxygen therapy is only helpful if you have a low oxygen level in your blood (hypoxemia). ? Lung surgery or transplant. ? Palliative care. This is to help people with COPD feel comfortable when treatment is no longer working. Follow these instructions at home: Medicines ? Take jljf-akb-vwegsqb and prescription medicines only as told by your health care provider. This includes inhaled medicines and pills. ? Talk to your health care provider before taking any cough or allergy medicines. You may need to avoid certain medicines that dry out your airways. Lifestyle ? If you smoke, the most important thing that you can do is to stop smoking. Continuing to smoke will cause the disease to progress faster. ? Do not use any products that contain nicotine or tobacco. These products include cigarettes, chewing tobacco, and vaping devices, such as e-cigarettes. If you need help quitting, ask your health care provider. ? Avoid exposure to things that irritate your lungs, such as smoke, chemicals, and fumes. ? Stay active, but balance activity with periods of rest. Exercise and physical activity will help you maintain your ability to do things you want to do. ? Learn and use relaxation techniques to manage stress and to control your breathing. ? Get the right amount of sleep and get quality sleep. Most adults need 7 or more hours per night. ? Eat healthy foods. Eating smaller, more frequent meals and resting before meals may help you maintain your strength. Controlled breathing Learn and use controlled breathing techniques as directed by your health care provider. Controlled breathing techniques include: ? Pursed lip breathing. Start by breathing in (inhaling) through your nose for 1 second. Then, purse your lips as if you were going to whistle and breathe out (exhale) through the pursed lips for 2 seconds. ? Diaphragmatic breathing. Start by putting one hand on your abdomen just above your waist. Inhale slowly through you (more content not included)... [facility] ED Patient Summaryon 024 ED Patient Summary (Inserted Image. Jaclyn ble to display) [address] [address] Patient Discharge Instructions Person Information Name: STEFAN WOOD Age: 62 Years Arrival Date: 10/25/2023 00:11:56 Discharge Diagnosis: COPD exacerbation; Chest pain Primary Care Physician: Franki Rangel III, DO Provider Information Primary Provider: Camille Muniz DO Advanced Pull Tab Dealer:None The exam and treatment you received in the Emergency Department were for an urgent problem and are not intended as complete care. It is important that you follow up with a doctor, nurse practitioner, or physician?s dental front office assistant for ongoing care. If your symptoms become worse or you do not improve as expected and you are unable to reach your usual health care provider, you should return to the Emergency Department. We are available 24 hours a day. STEFAN WOOD has been given the following list of patient education materials, prescriptions and follow-up instructions: Follow-up Instructions: With: Address: When: Franki Rangel [address] [place], [place] [id number] [facility] () In 3 days 10/28/2023 Comments: Call the office of your primary care doctor to arrange for follow-up within the above-stated timeframe. Follow-up with your primary care doctor about this ED visit. You should review your labs, imaging, and diagnoses from this ED visit with your primary care physician. There are occasionally non-emergent findings that require additional follow-up after your ED visit. If you were prescribed medications you should discuss possible side-effects and drug interactions with your pharmacist. Call 911 or go to the nearest Emergency Department if you develop any new or worsening symptoms. Seek immediate medical attention if you develop: worsening shortness of breath, difficulty breathing, chest pain, nausea, vomiting, weakness, numbness, tingling, excessive sweating, loss of motion in your arms or legs, or any new or worsening symptoms. In the event that this physician does not participate in your insurance network, please consult with your insurance company to find a nearby participating provider. Patient Education Materials: Chronic Obstructive Pulmonary Disease A MESSAGE TO ALL PATIENTS REGARDING OPIOIDS PRESCRIPTION OPIOIDS: WHAT YOU NEED TO KNOW Prescription opioids can be used to help relieve zvftvsui-wk-jrjhne pain and are often prescribed following a surgery or injury, or for certain health conditions. These medications can be an important part of the treatment but also come with serious risks. It is important to work with your healthcare provider to make sure you are getting the safest, most effective care. WHAT ARE THE RISKS AND SIDE EFFECTS OF OPIOID USE? Prescription opioids carry serious risks of addiction and overdose, especially with prolonged use. An opioid overdose, often marked by slowed breathing, can cause sudden . The use of prescription opioids can have a number of side effects as well, even when taken as directed: ? Tolerance?meaning you might need to take more of the medication for the same pain relief ? Physical dependence?meaning you have symptoms of withdrawal when a medication is stopped ? Increased sensitivity to pain ? Constipation ? Nausea, vomiting, and dry mouth ? Sleepiness and dizziness ? Confusion ? Depression ? Low levels of testosterone that can result in lower sex drive, energy, and strength ? Itching and sweating RISKS ARE GREATER WITH: ? History of drug misuse, substance use disorder, or overdose ? Mental health conditions (such as depression or anxiety) ? Sleep apnea ? Older age (65 years and older) ? Avoid alcohol while taking prescription opioids. Also, unless specifically advised by your health care provider, medications to avoid include: ? Benzodiazepines (such as Xanax or Valium) ? Muscle relaxants (such as Soma or Flexeril) ? Hypnotics (such as Ambien or Lunesta) ? Other prescription opioids KNOW YOUR OPTIONS Talk to your health care provider about ways to manage your pain that don?t involve prescription opioids. Some of these options may actually work better and have fewer risks and side effects. Options may include: ? Pain relievers such as acetaminophen, ibuprofen, and naproxen ? Some medication that are also used for depression or seizures ? Physical therapy and exercise ? Cognitive behavioral therapy, a psychological, goal-directed approach, in which patients learn how to modify physical, behavioral, and emotional triggers of pain and stress. IF YOU ARE PRESCRIBED OPIOIDS FOR PAIN: ? Never take opioids in greater amounts or more often than prescribed. ? Follow up with your primary health care provider. o Work together to create a plan on how to manage your pain. o Talk about ways to help manage your pain that don?t (more content not included)... Normal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 kyNyAwMDAwMCBuDQowMDAw YMKbJApzBZGqBUMwGN3BXeZyHNG gCJN9VLJaXKYfXNBpve4RPSRtNI C0LyReMCQsICKeNDLmEClc RCIsCEK8AeIkYLKeNCKkDL0PWvB uMPmsFTZJVsc6Xs2QNSRqXEFjTf DTAUL4MmMLZzVIDVg9AvTZ MFAKLyR7VVD9YSf1Ykk4TUoHTIl MDejvOZUhEEw0VSBNUEMKEyKNPm FFMjVCMTA+XQovUHJldiAy FPIzNbJYJ3Xep3QcGuWpIIRYBz7 NxWrdPEDlSy6Jl5YaX9MsJDlpCd uLzX9QNKFLBTX6BA8khJJv AIkgj1BIHgFTNr37K0D4lZMfU2n QYcdyctX5r9DJLI7UJY9jEtZ8Jo nKQnKYHJudL814DxQICp37 QMwvHFX3Q1gCPlJCflMsG0dYSDT yQNQEEJ3ICDy8FsQsKirpMN49UH cEBTALB2GUThNLAPXSGHBJ IGNxfGYsZovhK4LgOKlRIn2xHRB gICAgICAgICAgICAgICAgICAgIC AgICAgICAgICAgICAgICAg ICAgICAgICAgICAgICAgICAgICA gICAgICAgICAgICAgICAgICAgIC AgICAgICAgICAgICAgICAg ICAgICAgICAgICAgICAgICAgICA gICAgICAgICAgICAgICAgICAgIC AgICAgICAgICAgICAgICAg ICAgICAgICAgICAgICAgICAgICA gICAgICAgICAgICAgICAgICAgIC AgICAgICAgICAgICAgICAg ICAgICAgICAgICAgICAgICAgICA gICAgICAgICAgICAgICAgICAgIC AgICAgICAgICAgICAgICAg ICAgICAgICAgICAgICAgICAgICA gICAgICAgICAgICAgICAgICAgIC AgICAgICAgICAgICAgICAg ICAgICAgICAgICAgICAgICAgICA gICAgICAgICAgICAgICAgICAgIC AgICAgICAgICAgICAgICAg ICAgICAgICAgICAgICAgICAgICA gICAgICAgICAgICAgICAgICAgIC AlPPXFBpA7XEI0cNVeTx5L EP6DPEWQG4WGLs9EFlVvCZMvYbq VQcr8Bc5GACRcGFS1XPVrPKDqFJ QDY01nRW7WI5Ypv65fIpS7 XWQkXhzcNnw9PA4YR905tAkfkqY hIRO8KPJeEgdpFZTwYU8gJDZsF8 WnPA6wntKFX9TcR2UwWFNd HETyRjuxUFucBPJlV2V1SKlmMpt +Yu2FTU6kz5DmVKwJJaP4BGFoj1 BvCWv0MFhrTafykZJoMN8G kIV6JDJfG13mQWfxDZQqV8CpAPZ 5FRazNfF1XGr+Cs7Pm1YxDNKdAR j7mVWdNZQpLKIbteIGaMVi KHKwATJAJ2Brnujb14mHCdlkHLp vTQUjj7NQ9GJNvhPhAlWKCqedEO A+T4RuOHWqislPHpXjUtAs xSW4G8kWXUHPKU2vURiT2EugniF hgwYfWmcY50Ahjvt05HdHSa6oDO kK3gZpWfQg/VlA/BSituAv EL6ZqH9LpFAXthS2J1Ah0U9ZzSp +QWUKw2Mntk5HAS0yd4XgGBBgCR xyfnOxDehLWt9URbPbTHQn TwhKFii8Io7Ph613NK82sjGnZHZ oJBQAUEihDRUpkJKBx8drNeJcKS B1EYLrTudrFHtmPNSeDR20 KBDdKSOtCfyqWqBkm1LwJ6HuGBk 5Ye5MI3BdNQJ6YHj1Ae4OQGJoGt BbRmJjGWSAXz0WKh0WR5O0 nLFlF0VvR6KDQf7LOkPwTD4ndl4 TEOirQqQjBK2eaq6WNFiYR1BWg3 ciEmIhMDI9XFLgFgquPRdk WiptjZYrJY5KaCU3LJXuV50bGKt wGJEbN5GzXEw4Sy4EKWLiaPMrIM VxLVtBX2kSMbbrC4MpKTfR H3vjQrT5AME8TXTyAvp+Pgo+Pgo nS8LtlJouYHQgJw9sfZsfWBrgUD JbUR2lqiPgbMa+Vq9Ax9Kl IYTmXUt5wOYS7AHp8UAeGRHhNPV 2THEgqxYHCEpp9LtTzCUqXhGshP AmU4ptRZPp73cKYRLhCkzY c1wjIvPs7IdKHX+OC0DPefCwKjC ivp7AAQpojwQhlZMcSO0ZUuIhJB 3ykp0DCKklLgPaHH4nrn7R SVzBS2PSKT7Oh8PoKEjUK4PTNKL CI6sTLWDLK1pKOUTYE1rHCDMUD2 9JCVCZI8MATVPogYTAI8Nx RDHEKi2SVuQhQG3azo0ZZTziJLL kVF7tns7CNGcTC8HOLN7Zw0CeRF aBI2HxICQNNz6LWpOoSH5u cg3EBThwEUKoFJ3rou8UFUqQG3E IAJ5Un2BeHCeYI2VZODADD1iFAK IMA5oPQPYJW2dHDLFEZ14Z LTZQA6VJQGSmtUMDZ1UfYUDEPp3 ORlYdRI1mhm6NDYuvAIPcLW0hpj 5KQYrHH7Ltd8FEy456FW0Q KHKYCfCmB135vopwgp0fd6NBWLT ulWGKGGfoWPBaX1GvLVLmhBCbdv QkMQuvUULkXUEnLk5UbvIe GMidKeLxGEBhtgTrqSxlKEqtU6W meHoqBRDhCRmsXCUFT0NwMS3qE7 2aGGCgNrTaXRLNM2G2lIZz L8NjjlUSUl3JEoRqGP0phy1BIWr oAPAoML8gnf8WEZeMT2You9ETq1 96IX8MEECIYtBhI554rauq jv3fi2UNBTTbwDWFJUbrK1hXC0t buTCsPJ9lqeC9FRplI7RbDHJakw vqIChvKP88cPT5IEdiHsJs cOE8jbjxUDKek1GuWQxfM5FuoWe lbWVudCAwCj4+Al1COEGBj8jDDY 6srFOhYCVjqfAezJxMG2NU LYWMG5IhmbROCOZkfnpfgM4cRBY wEJBpGvrhY4WeqWqbDPWpB3fQVe 5hkVN5pELxHe3FwXXcYT1A j918Vu4MCJfyLYcjXQSmXJ1mXUm 6Rk4QOm6VItRpUO9wwr7YFFzhCj WaKT8dwo5IWLrZZ6LqG3Cr kBB8MkVoUUT4IQFHX3FpqDunrOk lnOJ3MGBiDbs1TVxKO2Rgf3Ormj YjMkZkOaI4Qxd0Ys9PnFBd lpPhJGgtMt5gbAHOx6pnIe1iDVR mYHu4FYSuFUyeXA41GPksJgG9RM DyWzQaOCLhRJXeJJ6bRFW6 WV7RN1WqtlHUmDdjHcM2AXJoDHO UR7XzerCLRY9aGO9UJOYXAnIqH5 84wlsmjo7ox3JHHLOquNGY OZpvQXVhlZhtWT6mhERrFSwvL8N kpDMnYmCdDHnbKNaJA8G1vMQqX8 YxfsCYHXQhwxwcvJ5hDh5+ CElchtErVagKSb2HMgOpASReKsq NSkz6Wu5RaEh6MMFoZ2PpPVWjKN Bgc1FdCn4PPR6vmDggZhAw Cj4+GBxcrDJoXG4SFydoCQJPuvC aDKm6R8pOFmOyN3nTTPxzuxUeB2 M5X1OoZpoPUMG88Iw7w2od 0JEZHwvqOpFI3tsARFR36f5v7LV fz9KeqceoyEMhk5yGuygyyDyQgT 29vx5v5ktgw2DtypMMllWp 5CNW5+QYroksvLiTyue3Pg5MP66 09X7L6zT0YchVEk2wbqChsyw15o vXcgUwqX1g5Rv5VzuKw50s jWjuMhBP2udOr+u6Je8fA5TzAm/ Bx6V5YYSe/9VzcvWD+w19uoXRk9 gTX9E1PrSZGWgnTJD8MgcY mHtN2P/l3a9/QxmuH4Injn+Isic cawLlXdoAP1cmhlWLqOdJgy4Qkf mCLAEcoowCRYDoQ3w1I7dY vjUkO7I9B6pbsNkzKp7AQPhc9+x f5Ng9sgjTsh6pwNLcUbbqV1VSqn AN (more content not included)... [facility] Insurance Correspondence Off iceon 11-11-2022 Insurance Correspondence Office [id number] [facility] BMPon 11-10-2022 Anion gap [Moles/Vol] 11 mmol/L Normal 6-16 [facility] Comment on above: Performed By: #### 2 [id number], [id number], [id number], [id number] ####[facility] [address] [place] [address] Calcium [Mass/Vol] 8.9 mg/dL Normal 8.9-11.1 [facility] Comment on above: Performed By: #### 2 [id number], [id number], [id number], [id number] ####[facility] [address] [place] [address] Chloride [Moles/Vol] 103 mmol/L Normal 101-111 [facility] Comment on above: Performed By: #### 2 [id number], [id number], [id number], [id number] ####[facility] [address] [place] [address] CO2 [Moles/Vol] 26 mmol/L Normal 21-31 [facility] Comment on above: Performed By: #### 2 191720, [id number], [id number], [id number] ####[facility] [address] [place] [place] [address] Creatinine [Mass/Vol] 0.9 mg/dL Normal 0.5-1.3 [facility] Comment on above: Performed By: #### 2 067078, [id number], [id number], [id number] ####[facility] [address] [address] Glucose [Mass/Vol] 153 mg/dL Normal 55-199 [facility] Comment on above: Result Comment: If t his glucose result represents a fasting glucose, interpretation should refer to the following reference range: 55-99 mg/dL Performed By: #### 2 302325, 5141012, [id number], [id number] ####[facility] [address] [place] [address] Potassium [Moles/Vol] 4.4 mmol/L Normal 3.5-5.3 [facility] Comment on above: Performed By: #### 2 627485, 7836277, [id number], [id number] ####[facility] [address] [place] [address] Sodium [Moles/Vol] 136 mmol/L Normal 135-145 [facility] Comment on above: Performed By: #### 2 655066, 0117798, [id number], [id number] ####[facility] [address] [place] [address] Urea nitrogen [Mass/Vol] 16 mg/dL Normal 5-21 [facility] Comment on above: Performed By: #### 2 848873, 2078099, 27346970, [id number] ####[facility] [address] [place] [address] Urea nitrogen/Creatinine [Mass ratio] 18 No Units Normal 10-20 [facility] Comment on above: Performed By: #### 2 539682, 5284950, [id number], [id number] ####[facility] [address] [place] [address] CHEMISTRYOrdered By: SYSTEM SYSTEM on 11-10-2022 Anion gap [Moles/Vol] 11 mmol/L Normal 6 - 16 mEq/L [facility] Remisol Calcium [Mass/Vol] 8.9 mg/dL Normal 8.9 - 11. 1 mg/dL [facility] Remisol Chloride [Moles/Vol] 103 mmol/L Normal 101 - 1 11 mmol/L [facility] CO2 [Moles/Vol] 26 mmol/L Normal 21 - 31 mmol/L [facility] Remisol Creatinine [Mass/Vol] 0.9 mg/dL Normal 0.5 - 1.3 mg/dL [facility] GFR/1.73 sq M.predicted among blacks MDRD (S/P/Bld) [Vol rate/Area] mL/min/1.73 m2 Normal >=59mL/min /1.73 m2 [facility] Chem S GFR/1.73 sq M.predicted among non-blacks MDRD (S/P/Bld) [Vol rate/Area] mL/min/1.73 m2 Normal >=59mL/min /1.73 m2 [facility] Chem S Glucose [Mass/Vol] 153 mg/dL Normal 55 - 199 mg/dL [facility] Remisol Potassium [Moles/Vol] 4.4 mmol/L Normal 3.5 - 5.3 mmol/L [facility] Remisol Sodium [Moles/Vol] 136 mmol/L Normal 135 - 145 mmol/L [facility] Remisol Urea nitrogen [Mass/Vol] 16 mg/dL Normal 5 - 21 mg/dL [facility] Remisol Urea nitrogen/Creatinine [Mass ratio] 18 mg/mg Normal 10 - 20 [facility] Remisol Discharge Instructionson Discharge Instructions [id number]:127 [facility] Discharge Note-Nursingon Discharge Note-Nursing STEFAN WOOD Michael :1960 Visit Date:11/08/2022 Inpatient Discharge Instructions Your Care Team Admitting Physician - Willie VICK, Kevyn Vickers Consulting Physician - Randi Hollis PA-C, Festus Jaimes Reason for Your Visit SOB Your Diagnosis Acute exacerbation of chronic obstructive pulmonary disease (COPD) Nicotine abuse Anemia CAD (coronary artery disease) HTN (hypertension) HLD (hyperlipidemia) Chronic GERD Depression On deep vein thrombosis (DVT) prophylaxis Acute on chronic respiratory failure Chest pain Shortness of breath Tests Performed Automated Diff B12 Level Blood Culture Charcoal -- Results Pending -- BMP BNP CBC w/ Auto Diff COVID Rapid Antigen ([facility]) eGFR Ferritin Folate Level Hemoglobin and Hematocrit Iron Level LDH Procalcitonin PT & PTT Respiratory Panel by PCR Retic Count Sputum Culture -- Results Pending -- TIBC Calculated Toxicology Drug Screen Urine Troponin 0 Hr. UA With Cult Reflex WBC XR Chest Single View Please visit your patient portal for your results or contact your primary care physician. This Is Your Medications List acetaminophen (acetaminophen 325 mg Tab) albuterol (Ventolin HFA 90 mcg/inh Aerosol) albuterol-ipratropium (DuoNeb 2.5 mg-0.5 mg/3 mL Soln-Inh) aspirin (aspirin 81 mg Oral EC Tab) atorvastatin (atorvastatin 20 mg Tab) azithromycin (azithromycin 500 mg oral tablet) escitalopram (escitalopram 10 mg Tab) fluticasone/umeclidinium/vi lanterol (Trelegy Ellipta inhalation powder) guaifenesin (Mucinex 600 mg Tab-ER) isosorbide mononitrate (isosorbide mononitrate 30 mg ER Tab) nicotine (Nicotine System Kit transdermal film, extended release) nitroglycerin (Nitro 0.4 mg Tab) pantoprazole (Pantoprazole [address] Tab) predniSONE (predniSONE 10 mg Tab) ranolazine (ranolazine 500 mg oral ER Tab) [Image Removed: STOP]Stop taking these medications polyethylene glycol 3350 with electrolytes (NuLYTELY Reeder oral powder for reconstitution) Procedure History Cardiac catheterization, left heart (05/24/2022), Cardiac catheterization, left heart (07/18/2021), EGD - Esophagogastroduodenoscopy (04/04/2021), Catheterization of left heart, Cholecystectomy, hernia reapir, left shoulder/upper arm ORIF. Discharge Vitals Temperature (Oral) 36.6 ?C Heart Rate (Monitored) 68 Respiratory Rate 20 Blood Pressure 111/69 Weight 87.7 kg What to do next Instructions From Your Doctor Event Name Event Result Discharge Activity Ambulate as tolerated, Activity as tolerated Discharge Restrictions No restrictions Discharge Diet(s) Regular, Fat Modified- Low cholesterol, Low Sodium- 2000 mg Pending Diagnostic Test Results Blood culture, Sputum culture Pharmacy Information [facility] Discharge Instructions Follow up appts as writtenCall PCP office Sunday for pending sputum/blood culture reports Previously Scheduled Follow-Up Appointments Sunday 9:45 AM EDT With: Kerrie Martins MD Where: [facility] New Follow Up Appointments after Discharge Follow Up with Franki Rangel When: 11/17/2022 11:00 AM EDT Where: [address] [facility] [place] [address]- Business (1) Follow Up with Kerrie Martins When: 11/15/2022 09:45 AM EDT Where: [address] [place] [address]- [phone] Business (1) Medications What How Much When Instructions Next Dose New acetaminophen (acetaminophen 325 mg Tab) 2 Tablets By Mouth Every 6 hours as needed for Pain New aspirin (aspirin 81 mg Oral EC Tab) 1 Tablets By Mouth Every day Pickup at [facility] #[id number] New azithromycin (azithromycin 500 mg oral tablet) 1 Tablets By Mouth Every day Duration: 3 Days Pickup at [facility] #[id number] New guaifenesin (Mucinex 600 mg Tab-ER) 1 Tablets By Mouth 2 times a day Pickup at [facility] #07239 New nicotine (Nicotine System Kit transdermal film, extended release) 1 Each Transdermal Every day Duration: 28 Days Pickup at [facility] #[id number] New pantoprazole (Pantoprazole [address] Tab) 1 Tablets By Mouth Every day Duration: 30 Days Pickup at [facility] #[id number] New predniSONE (predniSONE 10 mg Tab) 1 Dose Separtor By Mouth As Directed Take 5 tabs by mouth daily x5 days, 4 daily x5 days, 3 daily x5 days, 2 daily x5 days, then 1 tab daily x5 days. Pickup at [facility] #53642 Unchanged albuterol (Ventolin HFA 90 mcg/ inh Aerosol) 2 Puffs Inhalation Every 4 hours as needed for for wheezing Unchanged albuterol-ipratropium (DuoNeb 2.5 mg-0.5 mg/ 3 mL Soln-Inh) 3 Milliliter Inhalation 4 times a day as needed for Shortness of breath or wheezing Unchanged atorvastatin (atorvastatin 20 mg Tab) 1 Tablets By Mouth Every day Unchanged escitalopram (escitalopram 10 mg Tab) 1 Tablets By Mouth Every day Unchanged fluticasone/ umeclidinium/ vilanterol (Trelegy Ellipta i (more content not included)... [facility] Discharge Note-Nursing STEFAN WOOD :1960 Visit Date:11/08/2022 Inpatient Discharge Instructions Your Care Team Admitting Physician - Willie VICK, Kevyn Vickers Consulting Physician - Festus Bryan Jr., PA-C Reason for Your Visit SOB Your Diagnosis Acute exacerbation of chronic obstructive pulmonary disease (COPD) Nicotine abuse Anemia CAD (coronary artery disease) HTN (hypertension) HLD (hyperlipidemia) Chronic GERD Depression On deep vein thrombosis (DVT) prophylaxis Acute on chronic respiratory failure Chest pain Shortness of breath Tests Performed Automated Diff B12 Level Blood Culture Charcoal -- Results Pending -- BMP BNP CBC w/ Auto Diff COVID Rapid Antigen ([facility]) eGFR Ferritin Folate Level Hemoglobin and Hematocrit Iron Level LDH Procalcitonin PT & PTT Respiratory Panel by PCR Retic Count Sputum Culture -- Results Pending -- TIBC Calculated Toxicology Drug Screen Urine Troponin 0 Hr. UA With Cult Reflex WBC XR Chest Single View Please visit your patient portal for your results or contact your primary care physician. This Is Your Medications List acetaminophen (acetaminophen 325 mg Tab) albuterol (Ventolin HFA 90 mcg/inh Aerosol) albuterol-ipratropium (DuoNeb 2.5 mg-0.5 mg/3 mL Soln-Inh) aspirin (aspirin 81 mg Oral EC Tab) atorvastatin (atorvastatin 20 mg Tab) azithromycin (azithromycin 500 mg oral tablet) escitalopram (escitalopram 10 mg Tab) fluticasone/umeclidinium/vi lanterol (Trelegy Ellipta inhalation powder) guaifenesin (Mucinex 600 mg Tab-ER) isosorbide mononitrate (isosorbide mononitrate 30 mg ER Tab) nicotine (Nicotine System Kit transdermal film, extended release) nitroglycerin (Nitro 0.4 mg Tab) pantoprazole (Pantoprazole [address] Tab) predniSONE (predniSONE 10 mg Tab) ranolazine (ranolazine 500 mg oral ER Tab) [Image Removed: STOP]Stop taking these medications polyethylene glycol 3350 with electrolytes (NuLYTELY Reeder oral powder for reconstitution) Procedure History Cardiac catheterization, left heart (05/24/2022), Cardiac catheterization, left heart (07/18/2021), EGD - Esophagogastroduodenoscopy (04/04/2021), Catheterization of left heart, Cholecystectomy, hernia reapir, left shoulder/upper arm ORIF. Discharge Vitals Temperature (Oral) 36.6 ?C Heart Rate (Monitored) 68 Respiratory Rate 20 Blood Pressure 111/69 Weight 87.7 kg What to do next Instructions From Your Doctor Event Name Event Result Discharge Activity Ambulate as tolerated, Activity as tolerated Discharge Restrictions No restrictions Discharge Diet(s) Regular, Fat Modified- Low cholesterol, Low Sodium- 2000 mg Pending Diagnostic Test Results Blood culture, Sputum culture Pharmacy Information [facility] Discharge Instructions Follow up appts as writtenCall PCP office Sunday for pending sputum/blood culture reports New Follow Up Appointments after Discharge Follow Up with Franki Rangel When: 11/17/2022 11:00 AM EDT [facility] [address] [facility] [place] [address]- Business (1) Follow Up with Kerrie Martins When: Within 5 to 7 days Where: [address] [place] [address]- [phone] Business (1) Medications What How Much When Instructions Next Dose New acetaminophen (acetaminophen 325 mg Tab) 2 Tablets By Mouth Every 6 hours as needed for Pain Take as needed for pain. New aspirin (aspirin 81 mg Oral EC Tab) 1 Tablets By Mouth Every day Pickup at [facility] #[id number] 11/11/22 @ 9am New azithromycin (azithromycin 500 mg oral tablet) 1 Tablets By Mouth Every day Duration: 3 Days Pickup at [facility] #[id number] 11/11/22 @ 9am New guaifenesin (Mucinex 600 mg Tab-ER) 1 Tablets By Mouth 2 times a day Pickup at [facility] #[id number] 11/10/22 @9pm New nicotine (Nicotine System Kit transdermal film, extended release) 1 Each Transdermal Every day Duration: 28 Days Pickup at [facility] #[id number] 11/11/22 @ 9am New pantoprazole (Pantoprazole [address] Tab) 1 Tablets By Mouth Every day Duration: 30 Days Pickup at [facility] #[id number] 11/11/22 @ 9am New predniSONE (predniSONE 10 mg Tab) 1 Dose Separtor By Mouth As Directed Take 5 tabs by mouth daily x5 days, 4 daily x5 days, 3 daily x5 days, 2 daily x5 days, then 1 tab daily x5 days. Pickup at [facility] #[id number] 11/11/22 @ 9am Unchanged albuterol (Ventolin HFA 90 mcg/ inh Aerosol) 2 Puffs Inhalation Every 4 hours as needed for for wheezing 11/10/22 @ 4pm, 8pm Unchanged albuterol-ipratropium (DuoNeb 2.5 mg-0.5 mg/ 3 mL Soln-Inh) 3 Milliliter Inhalation 4 times a day as needed for Shortness of breath or wheezing 11/10/22 @ 4pm and 8pm Unchanged atorvastatin (atorvastatin 20 mg Tab) 1 Tablets By Mouth Every day 11/11/22 @ 9am Unchanged escitalopram (escitalopram 10 mg Tab) 1 Tablets By Mouth Every day 11/11/22 @ 9am Unchanged fluticasone/ umeclidinium/ (more content not included)... Normal [facility] HEMATOLOGYOrdered By: Ivelisse Brown on 11-10-2022 Hematocrit (Bld) [Volume fraction] 40.9 % Normal 37.7 - 49.0 % [facility] HemeAutoSS Hemoglobin (Bld) [Mass/Vol] 13.5 g/dL Normal 13.5 - 17.5 gm/dL [facility]eAutoSS WBC corrected for nucl RBC Auto (Bld) [#/Vol] 16.9 E9/L High 4.0 - 11.0 E9/L [facility] HemeAutoSS Hct & Hgbon 11-10-2022 Hematocrit (Bld) [Volume fraction] 40.9 % Normal 37.7-49.0 [facility] Comment on above: Performed By: #### 2 [id number] ####[facility] [id number] [place] [address] Hemoglobin (Bld) [Mass/Vol] 13.5 g/dL Normal 13.5-17.5 [facility] Comment on above: Performed By: #### [id number] ####[facility] [id number] [place] [address] Inpatient Clinical Summaryon 11-10-2022 Inpatient Clinical Summary [address] [address] Clinical Summary Person Information: Name: STEFAN WOOD Age: 61 Years : 1960 Sex: Male PCP: Franki Rangel III, DO Marital Status: Race: White Ethnicity: Non- or Language: Sammarinese Visit Id: Visit Reason: Chest pain; Shortness of breath; COPD EXACERBATION Speciality: Acuity: Enc Type: Inpatient Med Service: Medical Arrival: 11/08/2022 04:50:09 Discharge: Dispo Type: Admitted as IP to this Hosp Address: [address] [place] [id number] Provider Notes: Diagnosis: 1:Acute exacerbation of chronic obstructive pulmonary disease (COPD); 2:Nicotine abuse; 3:Anemia; 4:CAD (coronary artery disease); 5:HTN (hypertension); 6:HLD (hyperlipidemia); 7:Chronic GERD; 8:Depression; 9:On deep vein thrombosis (DVT) prophylaxis; Acute on chronic respiratory failure Problems Active Epigastric pain Unintentional weight loss History of rectal polyps Nicotine abuse Dysphagia Espino's esophagus Schatzki's ring History of colon polyps Chronic GERD Pulmonary fibrosis COPD - Chronic obstructive pulmonary disease Dyslipidemia Cigarette smoker Home oxygen supply HTN (hypertension) Smoking Status: Current Every Day Smoker Functional Status: Sensory Deficits: History of Falls: Mobility Assistance Prior to Admission: ADLs: Independent Current Level of Assistance for Self-Care/Mobility: Cognitive Status: Oriented x 3 Allergies No Known Allergies Measurements: Height: 193.04 cm Weight: 87.7 kg Blood Pressure: 111 mmHg / 69 mmHg BMI: 23.21 kg/m2 Procedures No Procedures Documented Immunizations No Immunizations Documented This Visit Final Med List: acetaminophen (acetaminophen 325 mg Tab) 2 Tablets By Mouth every 6 hours as needed Pain. albuterol (Ventolin HFA 90 mcg/inh Aerosol) 2 Puffs Inhalation every 4 hours as needed for wheezing. albuterol-ipratropium (DuoNeb 2.5 mg-0.5 mg/3 mL Soln-Inh) 3 Milliliter Inhalation 4 times a day as needed Shortness of breath or wheezing. aspirin (aspirin 81 mg Oral EC Tab) 1 Tablets By Mouth every day. Refills: 0. atorvastatin (atorvastatin 20 mg Tab) 1 Tablets By Mouth every day. azithromycin (azithromycin 500 mg oral tablet) 1 Tablets By Mouth every day for 3 Days. Refills: 0. escitalopram (escitalopram 10 mg Tab) 1 Tablets By Mouth every day. fluticasone/umeclidinium/vi lanterol (Trelegy Ellipta inhalation powder) 1 Puffs Inhalation every day. guaifenesin (Mucinex 600 mg Tab-ER) 1 Tablets By Mouth 2 times a day. Refills: 0. isosorbide mononitrate (isosorbide mononitrate 30 mg ER Tab) 1 Tablets By Mouth every day. Refills: 0. nicotine (Nicotine System Kit transdermal film, extended release) 1 Each Transdermal every day for 28 Days. Refills: 0. nitroglycerin (Nitro 0.4 mg Tab) 1 Tablets Sublingual every 5 minutes as needed Chest pain. pantoprazole (Pantoprazole [address] Tab) 1 Tablets By Mouth every day for 30 Days. Refills: 0. predniSONE (predniSONE 10 mg Tab) 1 Dose Separtor By Mouth As Directed. Take 5 tabs by mouth daily x5 days, 4 daily x5 days, 3 daily x5 days, 2 daily x5 days, then 1 tab daily x5 days.. Refills: 0. ranolazine (ranolazine 500 mg oral ER Tab) 1 Tablets By Mouth 2 times a day. Refills: 0. Care Team Members: Attending Physician: Kevyn Tapia MD Consulting Physician: Festus Bryan Jr., PA-C Referring Physician: Follow up: With: Address: When: Kerrie Martins [address] [place] [address] [phone] Business (1) Within 5 to 7 days With: Address: When: Franki Rangel [address] [place], [place] [id number] Business (1) 11/17/2022 11:00 AM Patient Education Information: DASH Eating Plan; Chronic Obstructive Pulmonary Disease Exacerbation, Kmbw-wp-Ldco; Acute Respiratory Failure, Adult azithromycin, predniSONE [facility] Inpatient Patient Summaryon 11-10-2022 Inpatient Patient Summary [place] [id number] Patient Discharge Instructions PERSON INFORMATION Name: STEFAN WOOD Date of : 1960 Current Date: 11/10/2022 10:49:15 PHYSICIANS Admitting Physician: Willie VICK, Kevyn Vickers Primary Care Physician: Franki Rangel III, DO PCP Comment: Discharge Diagnosis: 1:Acute exacerbation of chronic obstructive pulmonary disease (COPD); 2:Nicotine abuse; 3:Anemia; 4:CAD (coronary artery disease); 5:HTN (hypertension); 6:HLD (hyperlipidemia); 7:Chronic GERD; 8:Depression; 9:On deep vein thrombosis (DVT) prophylaxis; Acute on chronic respiratory failure Condition at Discharge: Improved STEFAN WOOD has been given the following list of follow-up instructions, prescriptions, and patient education materials: PATIENT FOLLOW-UP INFORMATION Diet: Regular, Fat Modified- Low cholesterol, Low Sodium- 2000 mg Discharge Activity: Ambulate as tolerated, Activity as tolerated Discharge Restrictions: No restrictions Wound Care Instructions: Remove Your Dressing In Days Call Your Doctor For: IF UNABLE TO CONTACT YOUR PHYSICIAN AND YOU FEEL IT IS AN EMERGENCY, GO TO THE NEAREST EMERGENCY ROOM OR CALL 911 Home Treatment: Oxygen therapy Devices/Equipment: Oxygen Special Services: Additional Instructions: Follow up appts as written Call PCP office Sunday for pending sputum/blood culture reports Primary Care Physician to provide the following pending test results: Blood culture, Sputum culture Follow up: With: Address: When: Kerrie Martins [address] [place] [address] [phone] [facility] (1) Within 5 to 7 days With: Address: When: Franki Rangel [address] [place], [place] [phone] [facility] () 11/17/2022 11:00 AM In the event that this physician does not participate in your insurance network, please consult with your insurance company to find a nearby participating provider. Comment: EVA Silva RICHARD E, have received the attached patient education materials/instructions and have verbalized understanding: Patient Signature Date Clinican/Nurse Signature Date HERE ARE THE MEDICATION CHANGES THAT OCCURRED DURING YOUR HOSPITAL STAY [id number], [address] [place], [place] [id number], [phone] aspirin (aspirin 81 mg Oral EC Tab) 1 Tablets By Mouth every day. Refills: 0. Last Dose: Ne xt Dose: azithromycin (azithromycin 500 mg oral tablet) 1 Tablets By Mouth every day for 3 Days. Refills: 0. Last Dose: Ne xt Dose: guaifenesin (Mucinex 600 mg Tab-ER) 1 Tablets By Mouth 2 times a day. Refills: 0. Last Dose: Ne xt Dose: nicotine (Nicotine System Kit transdermal film, extended release) 1 Each Transdermal every day for 28 Days. Refills: 0. Last Dose: Ne xt Dose: pantoprazole (Pantoprazole [address] Tab) 1 Tablets By Mouth every day for 30 Days. Refills: 0. Last Dose: Ne xt Dose: predniSONE (predniSONE 10 mg Tab) 1 Dose Separtor By Mouth As Directed. Take 5 tabs by mouth daily x5 days, 4 daily x5 days, 3 daily x5 days, 2 daily x5 days, then 1 tab daily x5 days.. Refills: 0. Last Dose: Ne xt Dose: Other Medications acetaminophen (acetaminophen 325 mg Tab) 2 Tablets By Mouth every 6 hours as needed Pain. Last Dose: Ne xt Dose: Medications to Continue with No Changes Other Medications albuterol (Ventolin HFA 90 mcg/inh Aerosol) 2 Puffs Inhalation every 4 hours as needed for wheezing. Last Dose: Ne xt Dose: albuterol-ipratropium (DuoNeb 2.5 mg-0.5 mg/3 mL Soln-Inh) 3 Milliliter Inhalation 4 times a day as needed Shortness of breath or wheezing. Last Dose: Ne xt Dose: atorvastatin (atorvastatin 20 mg Tab) 1 Tablets By Mouth every day. Last Dose: Ne xt Dose: escitalopram (escitalopram 10 mg Tab) 1 Tablets By Mouth every day. Last Dose: Ne xt Dose: fluticasone/umeclidinium/vi lanterol (Trelegy Ellipta inhalation powder) 1 Puffs Inhalation every day. Last Dose: Ne xt Dose: isosorbide mononitrate (isosorbide mononitrate 30 mg ER Tab) 1 Tablets By Mouth every day. Refills: 0. Last Dose: Ne xt Dose: nitroglycerin (Nitro 0.4 mg Tab) 1 Tablets Sublingual every 5 minutes as needed Chest pain. Last Dose: Ne xt Dose: ranolazine (ranolazine 500 m (more content not included)... [facility] Interdisciplinary Note - Maury e Manageron 11-10-2022 Interdisciplinary Note - Internal Revenue Service Agent Pt is awake and alert in bed, previously rounded with Shaunna FORDE. Pt is aware of plan to DC home today. pt is from home with roommate and he or another friend will transport at DC. Pt will need portable oxygen for DC Pt is on 4L and wears oxygen at 4L at home. Pt is set up with [facility] for visit tomorrow. Declines any further concerns or DC needs. . PCP verified and insurance information reviewed and DME discussed. Contact information provided and white board updated. [facility] Comment on above: Result Comment: Elec tronically Signed By: Dolores FONTAINE, Dorota\.br\Date and Time Signed: 11/10/22 10:19 EDT Monitor Recordon 11-10-2022 Monitor Record [id number] [facility] Progress Note-Physicianon Progress Note-Physician Assessment/Plan 1. Acute exacerbation of chronic obstructive pulmonary disease (COPD) (J44.1: Chronic obstructive pulmonary disease with (acute) exacerbation) AECOPD H/o severe COPD (last PFTs 09/25, FEV1 28%) on 4L NC at baseline Active smoker Home regimen: Trilogy, Albuterol Plan: - Currently on 4L NC, this is his baseline - Titrate O2 for sats 89-94% - Continue bronchodilators - Continue solumedrol 40mg q8h - RVP neg, sputum cx NGTD, procal neg - Continue empiric azithromycin - Encourage IS and OOB - Encourage smoking cessation - Ok from pulmonary standpoint for d/c. Please taper his steroids over 10 days. Have follow up in office 2-3 weeks. 2. Nicotine abuse (Z72.0: Tobacco use) 3. Anemia (D64.9: Anemia, unspecified) 4. CAD (coronary artery disease) (I25.10: Atherosclerotic heart disease of [place] coronary artery without angina pectoris) 5. HTN (hypertension) (I10: Essential (primary) hypertension) 6. HLD (hyperlipidemia) (E78.5: Hyperlipidemia, unspecified) 7. Chronic GERD (K21.9: Gastro-esophageal reflux disease without esophagitis) 8. Depression (F32.A: Depression, unspecified) 9. On deep vein thrombosis (DVT) prophylaxis (Z79.899: Other care home (current) drug therapy) Acute on chronic respiratory failure (J96.20: Acute and chronic respiratory failure, unspecified whether with hypoxia or hypercapnia) Subjective Pt is a 61y M with past medical history significant for severe COPD (last PFTs 09/25, FEV1 28%), chronic hypoxemic respiratory failure on 4L NC at baseline, HFpEF, CAD s/p PCI, GERD, Espino's esophagus, HLD, and HTN who presented to the ED via EMS for worsening SOB. Pt reports increasing SOB over the last two days. He denies any recent fevers, chills, chest pain, nausea, or vomiting. He has required increased use of med nebs at home. Pt required increasing oxygen flow to 4L obtain SPO2 level above 89%. Pt required multiple breathing treatments in the ED for increased work of breathing. CXR in the ED did not reveal any acute infiltrates. He was referred to the hospitalist service for COPD exacerbation. Pulmonary was consulted to assist in management of the pt's acute on chronic hypoxemic respiratory failure. 11/09: Pt is currently on 4L NC, which is his baseline. Despite this, he reports feeling more SOB than his baseline. He has had some productive cough and had coughed up a big sputum this AM. He feels as though his breathing is tight and that he has some wheezing . He denies any fevers or chills. Pt reports that he is still smoking, usually only a few cigarettes per day. [1] 11/10: Mentions that his breathing has significantly improved since presentation. He feels that the weather and the stress in his home life have contributed a great deal to his initial condition. He mentions that he is ready for the primary team plan to discharge him today. Objective Vitals & Measurements T: 36.8 ?C(Oral) TMIN: 36.6 ?C(Oral) TMAX: 36.9 ?C(Oral) HR: 70(Monitored) RR: 16 BP: 100/65 SpO2: 95% WT: 87.7 kg Intake & Output This visit (24 hour periods starting at 07:00 EDT) 11/10/22 * 11/09/22 11/08/22 Total Summary Intake mL 1 403 251 Output mL -- -- -- Fluid Balance 1 403 251 Intake (3) Oral Intake mL -- 150 -- Sodium Chloride 0.9%, azithromycin mL -- 250 250 methylPREDNISolone mL 1 3 1 Total 1 403 251 Output (0) Counts (1) Urine Count 1 -- -- * This column has not completed the indicated time period. Physical Exam General: No acute distress Skin: Warm, dry Head: Atraumatic, normocephalic Neck: Trachea midline, no adenopathy, no tenderness Eye: PERRL, sclera anicteric ENMT: Moist mucous membranes Cardiovascular: Regular rate and rhythm. No murmurs, rubs, or gallops. No BLE edema. Respiratory: Diminished b/l. Slight expiratory wheeze b/l. No rhonchi or crackles. No stridor. No accessory muscle use. Chest wall: No deformity Gastrointestinal: Soft, non-tender, non-distended Back: No tenderness Extremities: No deformity Neurological: Awake and alert. Following commands. No focal deficit appreciated. Psychiatric: Cooperative. Affect appropriate for age. [2] Lab Results WBC: 16.9 E9/L High (11/10/22 06:02:00) HGB: 13.5 gm/dL (11/10/22 06:02:00) Hct: 40.9 % (11/10/22 06:02:00) Glucose Lvl: 153 mg/dL (11/10/22 06:02:00) BUN: 16 mg/dL (11/10/22 06:02:00) Creatinine: 0.9 mg/dL (11/10/22 06:02:00) eGFR: >60 (11/10/22 06:02:00) eGFR AA: >60 (11/10/22 06:02:00) BUN/Creat Ratio: 18 (11/10/22 06:02:00) Sodium Lvl: 136 mmol/L (11/10/22 06:02:00) Potassium Lvl: 4.4 mmol/L (11/10/22 06:02:00) Chloride: 103 mmol/L (11/10/22 06:02:00) CO2: 26 mmol/L (11/10/22 06:02:00) AGAP: 11 mEq/L (11/10/22 06:02:00) Calcium Lvl: 8.9 mg/dL (11/10/22 06:02:00) Problem List/Past Medical History Ongoing Espino's esophagus Chronic GERD Cigarette smoker COPD - Chronic obstructive pulmonary disease Dyslipidemia Dysp (more content not included)... [facility] Comment on above: Result Comment: Elec tronically Signed By: Susy REGAN, Diane Villarreal\.br\Date and Time Signed: 11/10/22 14:30 EDT WBCon 11-10-2022 WBC corrected for nucl RBC Auto (Bld) [#/Vol] 16.9 E9/L High 4.0-11.0 [facility] Comment on above: Performed By: #### 2 469036, 2202260, [id number], [id number] ####[facility] [address] [place] [address] eGFRon 11-10-2022 GFR/1.73 sq M.predicted among blacks MDRD (S/P/Bld) [Vol rate/Area] mL/min/{1.73_m2} Normal >=59 [facility] Comment on above: Order Comment: Order added by Discern Expert. Result Comment: eGFR is race adjusted. AA=. Performed By: #### 2 761677, 6593623, 72117287, [id number] ####[facility] [address] [place] [address] GFR/1.73 sq M.predicted among non-blacks MDRD (S/P/Bld) [Vol rate/Area] mL/min/{1.73_m2} Normal >=59 [facility] Comment on above: Order Comment: Order added by Discern Expert. Result Comment: Forming Process Worker miko kidney disease could be indicated at eGFR's of less than 60 mL/min/1.73m2. Kidney failure is indicated at less than 15 mL/min/1.73m2. Performed By: #### 2 552017, 8581084, 86055427, 45620842 ####[place] [address] [place] [address] Auto Diffon 11-09-2022 Basophils/100 WBC (Bld) 0.3 % Normal 0.0-2.0 [facility] Comment on above: Order Comment: Order Added by Discern Expert. Performed By: #### 2 730244, 2755744, 4301854, 87466147 ####[address] [address] Basophils/Leukocytes Auto (Bld) [Pure # fraction] 0.1 E9/L Normal 0.0-0.2 [facility] Comment on above: Order Comment: Order Added by Discern Expert. Performed By: #### 2 487436, 7199418, 5884797, 41460797 ####[place] [address] [place] [address] Eosinophils/100 WBC (Bld) 0.0 % Normal 0.0-8.0 [facility] Comment on above: Order Comment: Order Added by Discern Expert. Performed By: #### 2 486641, 8845903, 9599335, 25992695 ####[address] [address] Eosinophils/Leukocytes Auto (Bld) [Pure # fraction] 0.0 E9/L Normal 0.0-0.5 [facility] Comment on above: Order Comment: Order Added by Discern Expert. Performed By: #### 2 743296, 0980985, 0544039, 55469345 ####[place] [address] [place] [address] Lymphocytes/100 WBC (Bld) 7.1 % Low 14.0-50.0 [facility] Comment on above: Order Comment: Order Added by Discern Expert. Performed By: #### 2 402046, 2480991, 3607933, 60924046 ####[place] [address] [place] [address] Lymphocytes/Leukocytes Auto (Bld) [Pure # fraction] 1.2 E9/L Normal 1.0-4.0 [facility] Comment on above: Order Comment: Order Added by Discern Expert. Performed By: #### 2 665779, 6111013, 9346118, 73678060 ####[address] [address] Monocytes/100 WBC (Bld) 4.4 % Normal 4.0-14.0 [facility] Comment on above: Order Comment: Order Added by Discern Expert. Performed By: #### 2 638376, 8167708, 9172756, 14132519 ####[address] [address] Monocytes/Leukocytes Auto (Bld) [Pure # fraction] 0.8 E9/L Normal 0.2-1.0 [facility] Comment on above: Order Comment: Order Added by Discern Expert. Performed By: #### 2 831603, 5795239, 1877613, 98992055 ####[address] [address] Neutrophils/100 WBC (Bld) 88.2 % High 36.0-75.0 [facility] Comment on above: Order Comment: Order Added by Discern Expert. Performed By: #### 2 290853, 7343053, 7733719, 97103157 ####[address] [address] Neutrophils/Leukocytes Auto (Bld) [Pure # fraction] 15.2 E9/L High 2.0-7.5 [facility] Comment on above: Order Comment: Order Added by Discern Expert. Performed By: #### 2 680667, 1329054, 2006070, 03536383 ####[place] [address] [place] [address] BMPon 11-09-2022 Anion gap [Moles/Vol] 9 mmol/L Normal 6-16 [facility] Comment on above: Performed By: #### 2 944911, 1062427, 7058797, 26853058 ####[facility] [address] [place] [address] Calcium [Mass/Vol] 8.7 mg/dL Low 8.9-11.1 [facility] Comment on above: Performed By: #### 2 386749, 3492106, 6719491, 39314994 ####[facility] [address] [place] [address] Chloride [Moles/Vol] 107 mmol/L Normal 101-111 [facility] Comment on above: Performed By: #### 2 130024, 6755228, 2454942, 06492329 ####[facility] [address] [place] [address] CO2 [Moles/Vol] 26 mmol/L Normal 21-31 [facility] Comment on above: Performed By: #### 2 193922, 5362972, 3874014, 77380022 ####[facility] [address] [place] [address] Creatinine [Mass/Vol] 0.7 mg/dL Normal 0.5-1.3 [facility] Comment on above: Performed By: #### 2 997622, 5209948, 0669783, 34879752 ####[facility] [address] [facility] [place] [address] Glucose [Mass/Vol] 115 mg/dL Normal 55-199 [facility] Comment on above: Result Comment: If t his glucose result represents a fasting glucose, interpretation should refer to the following reference range: 55-99 mg/dL Performed By: #### 2 556286, 8682581, 0182256, 99793375 ####[facility] [address] [place] [address] Potassium [Moles/Vol] 4.2 mmol/L Normal 3.5-5.3 [facility] Comment on above: Performed By: #### 2 281182, 6547727, 9230540, 88089471 ####[facility] [address] [place] [address] Sodium [Moles/Vol] 138 mmol/L Normal 135-145 [facility] Comment on above: Performed By: #### 2 387363, 1929811, 7958165, 43330686 ####[facility] [address] [place] [address] Urea nitrogen [Mass/Vol] 12 mg/dL Normal 5-21 [facility] Comment on above: Performed By: #### 2 846563, 8805599, 4923784, 75126247 ####[place] [place] [address] [place] [address] Urea nitrogen/Creatinine [Mass ratio] 17 No Units Normal 10-20 [facility] Comment on above: Performed By: #### 2 767670, 1827320, 2269503, 04887355 ####[facility] [address] [place] [address] C Sputumon 11-09-2022 Bacteria identified Respiratory culture Nom (Sput) Microbiology PROCEDURE: Sputum Culture [R1] SOURCE: Sputum BODY SITE: COLLECTED DATE/TIME: 11/08/2022 12:37 EDT RECEIVED DATE/TIME: 11/08/2022 13:18 EDT START DATE/TIME: 11/08/2022 13:18 EDT FREE TEXT SOURCE: KENYATTA AGPCNP, KENYATTA AGPCNP, Elizabeth Elizabeth FINAL REPORTS Final Report [] Verified Date/Time: 11/09/2022 08:40 EDT Sputum unsatisfactory for culture. Microscopic evaluation >25 Epithelial cells/ lpf indicates significant upper respiratory contamination. Submit another specimen. STAINS Gram Stain Report [] Verified Date/Time: 11/09/2022 08:41 EDT Sputum unsatisfactory for culture. Microscopic evaluation >25 Epithelial cells/ lpf indicates significant upper respiratory contamination. Submit another specimen. Performing Locations R1: This test was performed at: [facility], [address] [place] [address], [address] , [place], Normal [facility] Comment on above: Performed By: #### 2 487175 ####[place] [address] [place] [address] CBC w/ Auto Diffon 3 Erythrocyte distribution width (RBC) [Ratio] 14.0 % Normal 10.9-14.2 [facility] Comment on above: Performed By: #### 2 948469, 1807077, 1429861, 62495329 ####[place] [address] [place] [address] Hematocrit (Bld) [Volume fraction] 39.0 % Normal 37.7-49.0 [facility] Comment on above: Performed By: #### 2 416053, 1427401, 6850268, 04153309 ####[address] [address] Hemoglobin (Bld) [Mass/Vol] 13.2 g/dL Low 13.5-17.5 [facility] Comment on above: Performed By: #### 2 340852, 0417956, 1004641, 94403211 ####[address] [address] MCH (RBC) [Entitic mass] 33.1 pg Normal 27.0-34.0 [facility] Comment on above: Performed By: #### 2 647695, 2356444, 6736176, 36075859 ####[address] [address] MCHC (RBC) [Mass/Vol] 33.7 g/dL Normal 31.4-36.0 [facility] Comment on above: Performed By: #### 2 051857, 6568287, 9950992, 96985625 ####[address] [address] MCV (RBC) [Entitic vol] 98.0 fL Normal 80.0-100.0 [facility] Comment on above: Performed By: #### 2 316796, 3280741, 2648445, 79233195 ####[facility] [address] [place] [address] Platelet mean volume (Bld) [Entitic vol] 10.7 fL Normal 6.4-10.8 [facility] Comment on above: Performed By: #### 2 273128, 2004810, 0151708, 14358763 ####[address] [address] Platelets (Bld) [#/Vol] 177.0 E9/L Normal 150.0-500. 0 [facility] Comment on above: Performed By: #### 2 655398, 4926763, 9821238, 03464894 ####[address] [address] RBC (Bld) [#/Vol] 4.0 E12/L Low 4.3-5.9 [facility] Comment on above: Performed By: #### 2 342561, 6601408, 1167637, 75360259 ####[address] [address] WBC corrected for nucl RBC Auto (Bld) [#/Vol] 17.2 E9/L High 4.0-11.0 [facility] Comment on above: Result Comment: Slid e reviewed by cmk. Performed By: #### 2 467406, 2391916, 8179936, 73262923 ####[address] [address] CHEMISTRYOrdered By: SYSTEM SYSTEM on 11-09-2022 Amphetamines Screen method >1000 ng/mL Ql (U) Negative (11/09/22 12:20 PM) Normal Negative [facility] Barbiturates Screen Ql (U) Negative (11/09/22 12:20 PM) Normal Negative [facility] Benzodiazepines Ql (U) Negative (11/09/22 12:20 PM) Normal Negative [facility] Cocaine Ql (U) Negative (11/09/22 12:20 PM) Normal Negative [facility] Opiates Screen Ql (U) Negative (11/09/22 12:20 PM) Normal Negative [facility] Phencyclidine Screen method >25 ng/mL Ql (U) Negative (11/09/22 12:20 PM) Normal Negative [facility] Tetrahydrocannabinol Screen method >50 ng/mL Ql (U) Negative (11/09/22 12:20 PM) Normal Negative [facility] Cobalamin (Vitamin B12) [Mass/Vol] 270 pg/mL Normal 50 - 1500 pg/mL [facility] Ferritin [Mass/Vol] 59 ng/mL Normal 24 - 336 ng/mL [facility] Folate [Mass/Vol] 13.3 ng/mL Normal >=6.7ng/mL [facility] Iron [Mass/Vol] 61 ug/dL Normal 35 - 153 mcg/dL [facility] Iron binding capacity [Mass/Vol] 242 ug/dL Low 250 - 400 mcg/dL [facility] LDH [Catalytic activity/Vol] 98 [iU]/d Normal 93 - 218 Int._Unit/ L [facility] Procalcitonin ng/mL Normal 0.00 - 0.50 ng/mL [facility] Transferrin [Mass/Vol] 173 mg/dL Low 200 - 370 mg/dL [facility] Anion gap [Moles/Vol] 9 mmol/L Normal 6 - 16 mEq/L [facility] Calcium [Mass/Vol] 8.7 mg/dL Low 8.9 - 11. 1 mg/dL [facility] Chloride [Moles/Vol] 107 mmol/L Normal 101 - 1 11 mmol/L [facility] CO2 [Moles/Vol] 26 mmol/L Normal 21 - 31 mmol/L [facility] Creatinine [Mass/Vol] 0.7 mg/dL Normal 0.5 - 1.3 mg/dL [facility] GFR/1.73 sq M.predicted among blacks MDRD (S/P/Bld) [Vol rate/Area] mL/min/1.73 m2 Normal >=59mL/min /1.73 m2 [facility] Chem S GFR/1.73 sq M.predicted among non-blacks MDRD (S/P/Bld) [Vol rate/Area] mL/min/1.73 m2 Normal >=59mL/min /1.73 m2 [facility] Chem S Glucose [Mass/Vol] 115 mg/dL Normal 55 - 199 mg/dL [facility] Potassium [Moles/Vol] 4.2 mmol/L Normal 3.5 - 5.3 mmol/L [facility] Sodium [Moles/Vol] 138 mmol/L Normal 135 - 145 mmol/L [facility] Urea nitrogen [Mass/Vol] 12 mg/dL Normal 5 - 21 mg/dL [facility] Urea nitrogen/Creatinine [Mass ratio] 17 mg/mg Normal 10 - 20 [facility] Ferritinon 11-09-2022 Ferritin [Mass/Vol] 59 ng/mL Normal 24-336 [facility] Comment on above: Result Comment: NORM ALS MEN <30 YRS 16-132 ng/mL MEN >30 YRS 8-338 ng/mL WOMEN (PREMEN) 6-104 ng/mL WOMEN (POSTMEN) 12-210 ng/mL Performed By: #### 2 938170, [id number], 8378032, 8330615, 29857681, 5795239, 7817069, 8213740 ####[facility] [address] [place] [address] Folateon 11-09-2022 Folate [Mass/Vol] 13.3 ng/mL Normal >=6.7 [facility] Comment on above: Performed By: #### 2 799172, [id number], 4804569, 0757317, 69631275, 0615129, 0790547, 4044014 ####[facility] [address] [place] [address] HEMATOLOGYOrdered By: Minda Hart on 11-09-2022 Reticulocytes/100 RBC (Bld) 0.7 % Normal 0.5 - 1.5 % [facility] HemeAutoSS Erythrocyte distribution width (RBC) [Ratio] 14.0 % Normal 10.9 - 14.2 % [facility] HemeAutoSS Hematocrit (Bld) [Volume fraction] 39.0 % Normal 37.7 - 49.0 % [facility] HemeAutoSS Hemoglobin (Bld) [Mass/Vol] 13.2 g/dL Low 13.5 - 17.5 gm/dL [facility] HemeAutoSS MCH (RBC) [Entitic mass] 33.1 pg Normal 27.0 - 34.0 pg [facility] HemeAutoSS MCHC (RBC) [Mass/Vol] 33.7 g/dL Normal 31.4 - 36.0 gm/dL [facility] HemeAutoSS MCV (RBC) [Entitic vol] 98.0 fL Normal 80.0 - 100.0 fL [facility] HemeAutoSS Platelet mean volume (Bld) [Entitic vol] 10.7 fL Normal 6.4 - 10.8 fL [facility] HemeAutoSS Platelets (Bld) [#/Vol] 177.0 E9/L Normal 150.0 - 500.0 E9/L [facility] HemeAutoSS RBC (Bld) [#/Vol] 4.0 E12/L Low 4.3 - 5.9 E12/L [facility] HemeAutoSS WBC corrected for nucl RBC Auto (Bld) [#/Vol] 17.2 E9/L High 4.0 - 11.0 E9/L [facility]eAuto[facility] Comment on above: Result Comment: Andre marroquin reviewed by cmk. HEMATOLOGYOrdered By: SYSTEM SYSTEM on 11-09-2022 Basophils/100 WBC (Bld) 0.3 % Normal 0.0 - 2.0 % [facility] HemeAutoSS Basophils/Leukocytes Auto (Bld) [Pure # fraction] 0.1 E9/L Normal 0.0 - 0.2 E9/L [facility] HemeAutoSS Eosinophils/100 WBC (Bld) 0.0 % Normal 0.0 - 8.0 % [facility] HemeAutoSS Eosinophils/Leukocytes Auto (Bld) [Pure # fraction] 0.0 E9/L Normal 0.0 - 0.5 E9/L [facility] HemeAutoSS Lymphocytes/100 WBC (Bld) 7.1 % Low 14.0 - 50.0 % [facility] HemeAutoSS Lymphocytes/Leukocytes Auto (Bld) [Pure # fraction] 1.2 E9/L Normal 1.0 - 4.0 E9/L [facility] HemeAutoSS Monocytes/100 WBC (Bld) 4.4 % Normal 4.0 - 14.0 % [facility] HemeAutoSS Monocytes/Leukocytes Auto (Bld) [Pure # fraction] 0.8 E9/L Normal 0.2 - 1.0 E9/L [facility] HemeAutoSS Neutrophils/100 WBC (Bld) 88.2 % High 36.0 - 75.0 % [facility] HemeAutoSS Neutrophils/Leukocytes Auto (Bld) [Pure # fraction] 15.2 E9/L High 2.0 - 7.5 E9/L [facility] HemeAutoSS Insurance Correspondence Off iceon 11-09-2022 Insurance Correspondence Office [id number]#[id number]:127 Normal [facility] Interdisciplinary Note - Maury e Manageron 11-09-2022 Interdisciplinary Note - Internal Revenue Service Agent Pt is awake and alert in bed, await rounds with Shaunna JV BASEBALL COACH. Pt is from home with roommate. Roommate or friend will transport at Dc. Pt is on home oxygen 4L from Medical services, and is currently on 4L. Does have portable oxygen at home, friend can bring at DC. Pt is independent at home, declines need for HH. Discussed paramedicine and pt is agreeable at DC, does not care if AM or PM. Declines any further concerns or DC needs. . PCP verified and insurance information reviewed and DME discussed. Contact information provided and white board updated. Normal [facility] Comment on above: Result Comment: Elec tronically Signed By: Dolores FONTAINE, Dorota\.br\Date and Time Signed: 11/09/22 08:59 EDT Ironon 11-09-2022 Iron [Mass/Vol] 61 microgram/dL Normal 35-153 [facility] Comment on above: Performed By: #### 2 041287, [id number], 3815000, 3896236, 97430789, 3072215, 4644254, 6066649 ####[facility] [address] [place] [address] LDHon 11-09-2022 LDH [Catalytic activity/Vol] 98 Int._Unit/L Normal 93-218 [facility] Comment on above: Performed By: #### 2 796962, [id number], 5050400, 3876997, 59077646, 8840392, 7156196, 6018334 ####[facility] [address] [place] [address] Laboratory - Microbiology an d Antimicrobial susceptibilityOrdered By: Laury Adame on 11-09-2022 Bacteria identified Respiratory culture Nom (Sput) 2+ Normal upper respiratory marcello isolated [facility] Monitor Recordon 11-09-2022 Monitor Record [id number]#[id number]:127 Normal [facility] Monitor Record [id number]#[id number]:127 Normal [facility] Monitor Record [id number]#[id number]:127 Normal [facility] Monitor Record [id number]#[id number]:127 Normal [facility] No Panel InformationOrdered By: Laury Adame on 11-09-2022 GS Occasional White Blo od Cells Occasional Gram Positive Cocci Occasional Gram Positive Rods Occasional Yeast [facility] No Panel InformationOrdered By: ANGPROCESSSERVER MICROBIOLOGY on 11-09-2022 Blood Culture Charcoal No growth at 1 da y. Final to follow at [address] [facility] Blood Culture Charcoal No growth at 1 da y. Final to follow at [address] [facility] Procalcitoninon 11-09-2022 Procalcitonin <.05 Normal .00-.50 [facility] Comment on above: Result Comment: <0.5 ng/mL Low risk of severe sepsis and/or shock >2.0 ng/mL High risk of severe sepsis and/or shock Concentrations under 0.5 ng/mL do not exclude local infections or systemic infections in their initial stages (e.g.. under six hours from onset of illness). PCT concentrations between 0.5 and 2.0 ng/mL should be interpreted with consideration of the patient's history. In this range, it is recommended to retest PCT within 6 to 24 hours. Performed By: #### 2 365734, [id number], 7004814, 2731118, 34373019, 5970363, 7293468, 9989162 ####[facility] [address] [place] [address] Progress Note-Physicianon Progress Note-Physician Assessment/Plan 1. Acute on chronic respiratory failure (J96.20: Acute and chronic respiratory failure, unspecified whether with hypoxia or hypercapnia) 2/2 AECOPD, pulm fibrosis (follows Dr. Glenn Goldberg) -Home 02 3Lpm NC 26/02 -Supplemental 02 -Consult pulm - increase steroids to q8 -See below 2. Acute exacerbation of chronic obstructive pulmonary disease (COPD) (J44.1: Chronic obstructive pulmonary disease with (acute) exacerbation) Home tx: Trelegy/albuterol -CXR: Chronic lung dx., no acute process -Procal - pending -Resp. panel - pending -IV azithromycin - 11/06 -Med nebs, flutter, mucinex, supplemental 02 -11/09: Increase IV solumedrol 40mg q8hrs - taper as ruiz. -Sputum cx. - pending -Bl. cx. - pending 3. Nicotine abuse (Z72.0: Tobacco use) Hx. of 3ppd = 120 pack years 4. Anemia (D64.9: Anemia, unspecified) Baseline hgb. level - 14.0 -Anemia panel - pending -No acute bleeding noted, hemodynamically stable -Trend labs 5. CAD (coronary artery disease) (I25.10: Atherosclerotic heart disease of [place] coronary artery without angina pectoris) 2020: [facility]: mod. CAD, no intervention -Atorvastatin, imdur, ranolazine, -? asa -F/U w/ NOHC 6. HTN (hypertension) (I10: Essential (primary) hypertension) -Imdur, ranolazine 7. HLD (hyperlipidemia) (E78.5: Hyperlipidemia, unspecified) -Atorvastatin 8. Chronic GERD (K21.9: Gastro-esophageal reflux disease without esophagitis) -PPI 9. Depression (F32.A: Depression, unspecified) -Escitalopram 10. 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) -Heparin sq with early ambulation Orders: guaifenesin, 1,200 mg = 2 tab(s), Tab-ER, Oral, BID, Routine, Start date 11/09/22 9:00:00 EDT, 11/09/22 7:44:00 EDT pantoprazole, 40 mg = 1 tab(s), Tab-DR, Oral, Daily, Routine, Start date 11/09/22 9:00:00 EDT, 11/09/22 7:49:00 EDT ranolazine, 500 mg = 1 tab(s), Tab-ER, Oral, BID, Routine, Start date 11/09/22 9:00:00 EDT, 11/09/22 7:48:00 EDT Blood Culture Charcoal Blood Culture Charcoal Consult to Pulmonology Ferritin Flutter Valve Folate Level Iron Level Lactate Dehydrogenase Physical Therapy Evaluate Patient, Develop a Plan of Care and Implement Plan Procalcitonin Respiratory Panel by PCR Reticulocyte Count TIBC Calculated Vitamin B12 Level -Plan discussed w/ patient, nursing staff and CRM. This report was transcribed using voice recognition software. Every effort was made to ensure accuracy, however, inadvertently computerized shot man mistakes may be present. Subjective No acute events overnight. Patient states he feels slightly SOB w/ conversation, prod. cough of thick yellow mucus, Pt. denies CP, pressure, palpitations, N/V, or paresthesia. Review of Systems Constitutional: Negative Eye: Negative. Ear/Nose/Mouth/Throat: Negative. Respiratory: SOB/[place] w/ extended conversation Cardiovascular: Negative. Gastrointestinal: Denies abd pain. Passing flatus. Last bowel movement: 11/09 Genitourinary: Negative. Hematology/Lymphatics: Negative. Endocrine: Negative. Immunologic: Negative Musculoskeletal: Negative. Integumentary: Negative. Neurologic: Alert and oriented X4. Psychiatric: Negative. Additional ROS info: Except as noted in the above Review of Systems and in the History of Present Illness all other systems have been reviewed and are negative or noncontributory Objective Vitals & Measurements T: 36.8 ?C(Oral) TMIN: 36.3 ?C(Oral) TMAX: 36.8 ?C(Oral) HR: 65(Monitored) RR: 16 BP: 100/64 SpO2: 96% HT: 193.04 cm WT: 87.1 kg Intake & Output This visit (24 hour periods starting at 07:00 EDT) 11/09/22 * 11/08/22 11/07/22 Total Summary Intake mL 1 251 50 Output mL -- -- -- Fluid Balance 1 251 50 Intake (3) Generic Diluent, magnesium sulfate mL -- -- 50 Sodium Chloride 0.9%, azithromycin mL -- 250 -- methylPREDNISolone mL 1 1 -- Total 1 251 50 Output (0) Counts (0) * This column has not completed the indicated time period. Physical Exam General: Calm, able to communicate needs, Head: Normocephalic/atraumatic Eyes: Pupils equal, round, Conjunctivae and sclerae normal, HEENT: Mucous membrane moist. Tongue normal Neck: Trachea midline, neck supple, Chest: No chest wall deformity, no chest wall tenderness Lungs: Scattered exp. wheezing, harsh prod. cough of thick yellow sputum, Cardio: Normal rate, currently in RSR, no edema. Pulses: Normal capillary refill Abdomen: Soft, non-distended, non-tender, normal BS Musculoskeletal: No deformity or scoliosis noted. Integumentary: Warm, dry, Extremity: No clubbing, Neurologic: Alert, oriented x 4, follows commands, Mental status: Pleasant & cooperative, approp. affect, Lab Results WBC: 17.2 E9/L High (11/09/22 06:07:00) RBC: 4 E12/L Low (11/09/22 06:07:00) HGB: 13.2 gm/dL Low (11/09/22 06:07:00) Hct: (more content not included)... Normal [facility] Comment on above: Result Comment: Elec tronically Signed By: Shaunna ODEN\.br\Date and Time Signed: 11/09/22 09:54 EDT\.br\Electronically Co-Signed By: Willie VICK, Kevyn Vickers\.br\Date and Time Co-Signed: 11/09/22 12:33 EDT Respiratory Panel by PCRon 0 11-09-2022 Adenovirus DNA CHEKO+non-probe Ql (Nph) Not detected Normal [facility] Comment on above: Result Comment: Test ing was performed using nucleic acid amplification including Influenza A, Influenza A H1, Influenza A H3, Influenza B, RSV A, RSV B, Adenovirus, Human Metapneumovirus, Parainfluenza 1,2,3, and 4, Rhinovirus, Bordetella parapertussis/bronchiseptica, Bordetella holmesii, and Bordetella pertussis. Performed By: #### 1 [id number] ####[facility] [address] [facility] [place] [address] B. parapertussis DNA CHEKO+probe Ql (Upper resp) Not detected Normal Not Detected [facility] Comment on above: Performed By: #### 1 [id number] ####[facility] [address] [facility] [place] [address] B. pertussis DNA CHEKO+probe Ql (Upper resp) Not detected Normal Not Detected [facility] Comment on above: Performed By: #### 1 [id number] ####[facility] [address] [facility] [place] [address] FLUAV H1 RNA CHEKO+non-probe Ql (Nph) Not detected Normal [facility] Comment on above: Performed By: #### 1 [id number] ####[address] [place] [facility] [place] [address] FLUAV H3 RNA CHEKO+non-probe Ql (Nph) Not detected Normal [facility] Comment on above: Performed By: #### 1 [id number] ####[facility] [address] [place] [address] FLUAV RNA CHEKO+non-probe Ql (Nph) Not detected Normal [facility] Comment on above: Performed By: #### 1 [id number] ####[facility] [address] [facility] [place] [address] FLUBV RNA CHEKO+non-probe Ql (Nph) Not detected Normal [facility] Comment on above: Performed By: #### 1 [id number] ####[facility] [address] [facility] [place] [address] Human Metapneumovirus Not detected Normal [facility] Comment on above: Result Comment: This test result should be correlated with clinical presentations and medical history by a healthcare provider to determine its clinical significance. Performed By: #### 1 [id number] ####[facility] [address] [facility] [place] [address] Parainfluenza virus 1 RNA CHEKO+non-probe Ql (Nph) Not detected Normal [facility] Comment on above: Performed By: #### 1 [id number] ####[address] [place] [address] Parainfluenza virus 2 RNA CHEKO+non-probe Ql (Nph) Not detected Normal [facility] Comment on above: Performed By: #### 1 [id number] ####[address] [place] [address] Parainfluenza virus 3 RNA CHEKO+non-probe Ql (Nph) Not detected Normal [facility] Comment on above: Performed By: #### 1 [id number] ####[address] [place] [address] Parainfluenza virus 4 RNA CHEKO+non-probe Ql (Nph) Not detected Normal [facility] Comment on above: Performed By: #### 1 [id number] ####[address] [address] Resp Panel Intrl QC Pass Normal [facility] Comment on above: Performed By: #### 1 [id number] ####[address] [address] Rhinovirus+Enterovirus RNA CHEKO+non-probe Ql (Nph) Not detected Normal [facility] Comment on above: Performed By: #### 1 [id number] ####[address] [place] [address] RSV RNA CHEKO+non-probe Ql (Nph) Not detected Normal [facility] Comment on above: Performed By: #### 1 [id number] ####[address] [address] Retic Counton 11-09-2022 Reticulocytes/100 RBC (Bld) 0.7 % Normal 0.5-1.5 [facility] Comment on above: Performed By: #### 2 818301, [id number], 9409241, 9312757, 03074982, 5158566, 1306309, 2612785 ####[address] [place] [address] TIBC Calculatedon 11-09-2022 Iron binding capacity [Mass/Vol] 242 microgram/dL Low 250-400 [facility] Comment on above: Performed By: #### 2 408914, [id number], 3962260, 6233418, 07543310, 9549293, 7533199, 6652284 ####[facility] [address] [place] [address] Transferrin [Mass/Vol] 173 mg/dL Low 200-370 [facility] Comment on above: Performed By: #### 2 046375, [id number], 4987428, 5808058, 02946773, 4490155, 2675256, 2761796 ####[facility] [address] [place] [address] U Drug Screenon 11-09-2022 Amphetamines Screen method >1000 ng/mL Ql (U) Negative Normal Negative [facility] Comment on above: Result Comment: Nega tive Cutoff: <1000 ng/mL Performed By: #### 2 951296 ####[facility] [address] [place] [address] Barbiturates Screen Ql (U) Negative Normal Negative [facility] Comment on above: Result Comment: Nega tive Cutoff: <200 ng/mL Performed By: #### 2 803840 ####[facility] [address] [place] [address] Benzodiazepines Ql (U) Negative Normal Negative [facility] Comment on above: Result Comment: Nega tive Cutoff: <200 ng/mL Performed By: #### 2 628775 ####[facility] [address] [place] [address] Cocaine Ql (U) Negative Normal Negative [facility] Comment on above: Result Comment: Nega tive Cutoff: <300 ng/mL Performed By: #### 2 913523 ####[facility] [address] [place] [address] Opiates Screen Ql (U) Negative Normal Negative [facility] Comment on above: Result Comment: Nega tive Cutoff: <300 ng/mL Performed By: #### 2 331205 ####[facility] [address] [place] [address] Phencyclidine Screen method >25 ng/mL Ql (U) Negative Normal Negative [facility] Comment on above: Result Comment: Nega tive Cutoff: <25 ng/mL These drug screen results are to be used for medical (i.e., treatment) purposes only. Unconfirmed drug screening results must not be used for non-medical purposes (e.g., employment testing, legal testing). Performed By: #### 2 610413 ####[facility] [address] [place] [address] Tetrahydrocannabinol Screen method >50 ng/mL Ql (U) Negative Normal Negative [facility] Comment on above: Result Comment: Nega tive Cutoff: <50 ng/mL Performed By: #### 2 978627 ####[facility] [address] [place] [address] UA With Cult Reflexon 2022 Bilirubin Ql (U) Negative Normal Negative [facility] Comment on above: Performed By: #### 1 [id number] ####[address] [place] [address] Clarity (U) CLEAR Normal Clear [facility] Comment on above: Performed By: #### 1 1044603 ####[address] [address] Color (U) YELLOW Normal Yellow [facility] Comment on above: Performed By: #### 1 [id number] ####[address] [place] [address] Epithelial cells.squamous LM.HPF (Urine sed) [#/Area] 0-2 Normal 0-2 [facility] Comment on above: Performed By: #### 1 3982761 ####[facility] [address] [place] [address] Glucose Test strip (U) [Mass/Vol] Negative Normal Negative [facility] Comment on above: Performed By: #### 1 [id number] ####[address] [address] Hemoglobin Ql (U) TRACE Abnormal Negative [facility] Comment on above: Performed By: #### 1 2001412 ####[address] [address] Ketones (U) [Mass/Vol] Negative Normal Negative [facility] Comment on above: Performed By: #### 1 3514303 ####[address] [address] [place].plasma/[place] .RBC (Bld) [Mass ratio] 0-3 Normal 0-3 [facility] Comment on above: Performed By: #### 1 [id number] ####[address] [address] Nitrite Ql (U) Negative Normal Negative [facility] Comment on above: Performed By: #### 1 [id number] ####[address] [address] pH (U) 7.0 [pH] Invalid Interpretation Code 5.0-9.0 [facility] Comment on above: Performed By: #### 1 2016472 ####[address] [address] Protein (U) [Mass/Vol] Negative Normal Negative [facility] Comment on above: Performed By: #### 1 5531284 ####[address] [address] Specific gravity (U) [Rel density] 1.015 Invalid Interpretation Code 1.005-1.03 0 [facility] Comment on above: Performed By: #### 1 [id number] ####[address] [address] Type of Urine collection method Clean Catch Normal [facility] Comment on above: Performed By: #### 1 3940230 ####[address] [address] Urobilinogen Qn (U) 0.2 {Christopher'U}/dL Normal 0.0-1.0 [facility] Comment on above: Performed By: #### 1 [id number] ####[facility] [address] [place] [address] WBC Auto Ql (U) Negative Normal Negative [facility] Comment on above: Performed By: #### 1 5267186 ####[facility] [address] [place] [address] WBC LM.HPF (Urine sed) [#/Area] 0-5 Normal 0-5 [facility] Comment on above: Performed By: #### 1 1912552 ####[facility] [address] [place] [address] URINALYSISOrdered By: Nel Olsen on 11-09-2022 Bilirubin Ql (U) Negative (11/09/22 12:20 PM) Normal Negative [facility] UA Auto SS Clarity (U) Clear (11/09/22 12:20 PM) Normal Clear [facility] UA Auto SS Color (U) Yellow (11/09/22 12:20 PM) Normal Yellow [facility] UA Auto SS Epithelial cells.squamous LM.HPF (Urine sed) [#/Area] 0-2 /HPF Normal 0-2/HPF [facility] UA Auto SS Glucose Test strip (U) [Mass/Vol] Negative (11/09/22 12:20 PM) Normal Negative [facility] UA Auto SS Hemoglobin Ql (U) Trace *ABN* (11/09/22 12:20 PM) Invalid Interpretation Code Negative [facility] UA Auto SS Ketones (U) [Mass/Vol] Negative (11/09/22 12:20 PM) Normal Negative [facility] UA Auto SS [place].plasma/[place] .RBC (Bld) [Mass ratio] 0-3 /HPF Normal 0-3/HPF [facility] UA Auto SS Nitrite Ql (U) Negative (11/09/22 12:20 PM) Normal Negative [facility] UA Auto SS pH (U) 7.0 *NA* (11/09/22 12:20 PM) Invalid Interpretation Code 5.0 - 9.0 [facility] UA Auto SS Protein (U) [Mass/Vol] Negative (11/09/22 12:20 PM) Normal Negative [facility] UA Auto SS Specific gravity (U) [Rel density] 1.015 *NA* (11/09/22 12:20 PM) Invalid Interpretation Code 1.005 - 1.030 [facility] UA Auto SS UA Spec Desc Clean Catch (11/09/22 12:20 PM) Normal [facility] UA Auto SS Urobilinogen Qn (U) 0.2098185 {Christopher'U}/dL Normal 0.0 - 1.0 EU/dL [facility] UA Auto SS WBC Auto Ql (U) Negative (11/09/22 12:20 PM) Normal Negative [facility] UA Auto SS WBC LM.HPF (Urine sed) [#/Area] 0-5 /HPF Normal 0-5/HPF [facility] UA Auto SS Vit B12on 11-09-2022 Cobalamin (Vitamin B12) [Mass/Vol] 270 pg/mL Normal 50-1500 [facility] Comment on above: Performed By: #### 2 856530, [id number], 1355860, 8079711, 93915306, 2142203, 6019156, 4715104 ####[facility] [address] [place] [address] eGFRon 11-09-2022 GFR/1.73 sq M.predicted among blacks MDRD (S/P/Bld) [Vol rate/Area] mL/min/{1.73_m2} Normal >=59 [facility] Comment on above: Order Comment: Order added by Discern Expert. Result Comment: eGFR is race adjusted. AA=. Performed By: #### 2 716538, 8535018, 0026797, 22126353 ####[facility] [address] [place] [address] GFR/1.73 sq M.predicted among non-blacks MDRD (S/P/Bld) [Vol rate/Area] mL/min/{1.73_m2} Normal >=59 [facility] Comment on above: Order Comment: Order added by Discern Expert. Result Comment: Forming Process Worker miko kidney disease could be indicated at eGFR's of less than 60 mL/min/1.73m2. Kidney failure is indicated at less than 15 mL/min/1.73m2. Performed By: #### 2 096554, 2275662, 3300109, 65655995 ####[address] [place] [address] Auto Diffon 11-08-2022 Basophils/100 WBC (Bld) 0.3 % Normal 0.0-2.0 [facility] Comment on above: Order Comment: Order Added by Discern Expert. Performed By: #### 1 1899769, 29509710, 55052981, 96631639, 0874012, 2240970, 9494485 ####[address] [address] Basophils/Leukocytes Auto (Bld) [Pure # fraction] 0.0 E9/L Normal 0.0-0.2 [facility] Comment on above: Order Comment: Order Added by Discern Expert. Performed By: #### 1 1629467, 74465784, 01778187, 16335738, 1874015, 8495308, 3075714 ####[address] [address] Eosinophils/100 WBC (Bld) 3.7 % Normal 0.0-8.0 [facility] Comment on above: Order Comment: Order Added by Discern Expert. Performed By: #### 1 9820603, 68838997, 71794137, 78179285, 7649031, 5060292, 6601135 ####[address] [address] Eosinophils/Leukocytes Auto (Bld) [Pure # fraction] 0.4 E9/L Normal 0.0-0.5 [facility] Comment on above: Order Comment: Order Added by Discern Expert. Performed By: #### 1 8593874, 32060401, 46132140, 50182459, 3074767, 8900432, 5717908 ####[address] [address] Lymphocytes/100 WBC (Bld) 41.8 % Normal 14.0-50.0 [facility] Comment on above: Order Comment: Order Added by Discern Expert. Performed By: #### 1 5936148, 75654736, 10763230, 30709398, 1876691, 2695675, 7532292 ####[address] [place] [address] Lymphocytes/Leukocytes Auto (Bld) [Pure # fraction] 4.7 E9/L High 1.0-4.0 [facility] Comment on above: Order Comment: Order Added by Discern Expert. Performed By: #### 1 0927089, 77163074, 88890008, 28956329, 3339603, 7693301, 3646542 ####[address] [address] Monocytes/100 WBC (Bld) 8.3 % Normal 4.0-14.0 [facility] Comment on above: Order Comment: Order Added by Discern Expert. Performed By: #### 1 9213652, 99643560, 33982792, 22716282, 2927042, 6105468, 0305367 ####[address] [address] Monocytes/Leukocytes Auto (Bld) [Pure # fraction] 0.9 E9/L Normal 0.2-1.0 [facility] Comment on above: Order Comment: Order Added by Discern Expert. Performed By: #### 1 9791880, 61365248, 30256096, 32140971, 1067554, 2859368, 3187066 ####[address] [address] Neutrophils/100 WBC (Bld) 45.9 % Normal 36.0-75.0 [facility] Comment on above: Order Comment: Order Added by Discern Expert. Performed By: #### 1 4921279, 93011981, 74797021, 54780592, 4678922, 6751770, 8019764 ####[address] [place] [address] Neutrophils/Leukocytes Auto (Bld) [Pure # fraction] 5.1 E9/L Normal 2.0-7.5 [facility] Comment on above: Order Comment: Order Added by Discern Expert. Performed By: #### 1 5576848, 92236200, 69022521, 70934490, 9091117, 5812720, 9151584 ####[facility] [address] [place] [address] BMPon 11-08-2022 Anion gap [Moles/Vol] 11 mmol/L Normal 6-16 [facility] Comment on above: Performed By: #### 1 0014276, 17187262, 48826988, 53239894, 9049186, 1613277, 6486828 ####[facility] [address] [place] [address] Calcium [Mass/Vol] 8.8 mg/dL Low 8.9-11.1 [facility] Comment on above: Performed By: #### 1 6590831, 94776485, 03447622, 12124821, 5032734, 7247325, 9736106 ####[facility] [address] [place] [address] Chloride [Moles/Vol] 104 mmol/L Normal 101-111 [facility] Comment on above: Performed By: #### 1 9014098, 58115304, 40461583, 95142965, 3550302, 2222769, 1914551 ####[facility] [address] [place] [address] CO2 [Moles/Vol] 27 mmol/L Normal 21-31 [facility] Comment on above: Performed By: #### 1 2030941, 08285843, 40746641, 78867795, 5825244, 5607814, 4358950 ####[facility] [address] [place] [address] Creatinine [Mass/Vol] 0.8 mg/dL Normal 0.5-1.3 [facility] Comment on above: Performed By: #### 1 [id number], [id number], 00740591, 09377268, 6396142, 6932484, 1798068 ####[facility] [address] [place] [address] Glucose [Mass/Vol] 115 mg/dL Normal 55-199 [facility] Comment on above: Result Comment: If t his glucose result represents a fasting glucose, interpretation should refer to the following reference range: 55-99 mg/dL Performed By: #### 1 [id number], 05678357, 56796953, 47177096, 4491215, 4753296, 7926216 ####[facility] [address] [place] [address] Potassium [Moles/Vol] 4.2 mmol/L Normal 3.5-5.3 [facility] Comment on above: Result Comment: 'Spe cimen hemolyzed. Result may be affected. Redraw is recommended.' Performed By: #### 1 [id number], 80500298, 79810470, 79542846, 6354845, 5108610, 1106678 ####[facility] [address] [place] [address] Sodium [Moles/Vol] 138 mmol/L Normal 135-145 [facility] Comment on above: Performed By: #### 1 8845146, 96980472, 25125869, 47294596, 9470423, 4026308, 0910601 ####[facility] [address] [place] [address] Urea nitrogen [Mass/Vol] 10 mg/dL Normal 5-21 [facility] Comment on above: Performed By: #### 1 8144762, 75447602, 27520305, 00790006, 6884953, 1071940, 0454921 ####[facility] [address] [place] [address] Urea nitrogen/Creatinine [Mass ratio] 12 No Units Normal 10-20 [facility] Comment on above: Performed By: #### 1 [id number], 38479121, 16978144, 41161421, 9045768, 2210014, 5179958 ####[facility] [address] [place] [address] BNPon 11-08-2022 Natriuretic peptide B (Bld) [Mass/Vol] 25 pg/mL Normal 5-80 [facility] Comment on above: Performed By: #### 1 8678718, 35262129, 88200351, 10344032, 0591155, 8104173, 4130692 ####[facility] [address] [place] [address] CBC w/ Auto Diffon 3 Erythrocyte distribution width (RBC) [Ratio] 13.9 % Normal 10.9-14.2 [facility] Comment on above: Performed By: #### 1 9172792, 22495241, 20234278, 50806315, 3392664, 3427702, 7091386 ####[address] [place] [address] Hematocrit (Bld) [Volume fraction] 43.5 % Normal 37.7-49.0 [facility] Comment on above: Performed By: #### 1 9280197, 49779153, 16316856, 73832417, 7524484, 3972433, 8866441 ####[address] [place] [address] Hemoglobin (Bld) [Mass/Vol] 14.2 g/dL Normal 13.5-17.5 [facility] Comment on above: Performed By: #### 1 7551938, 56080176, 04356178, 33267526, 2190340, 9305315, 6761101 ####[address] [place] [address] MCH (RBC) [Entitic mass] 32.5 pg Normal 27.0-34.0 [facility] Comment on above: Performed By: #### 1 9292281, 55497480, 79214866, 23285050, 6915100, 5754859, 5129500 ####[address] [place] [address] MCHC (RBC) [Mass/Vol] 32.7 g/dL Normal 31.4-36.0 [facility] Comment on above: Performed By: #### 1 8138705, 80398630, 62427362, 88224435, 0373732, 1409145, 1676598 ####[address] [place] [address] MCV (RBC) [Entitic vol] 99.1 fL Normal 80.0-100.0 [facility] Comment on above: Performed By: #### 1 5336325, 53477151, 29311077, 78816375, 6005214, 5610093, 3732759 ####[address] [place] [address] Platelet mean volume (Bld) [Entitic vol] 10.2 fL Normal 6.4-10.8 [facility] Comment on above: Performed By: #### 1 6930496, 97718243, 05073923, 22330001, 5527769, 2246413, 0020294 ####[address] [place] [address] Platelets (Bld) [#/Vol] 186.0 E9/L Normal 150.0-500. 0 [facility] Comment on above: Performed By: #### 1 5305722, 45856892, 19149551, 94545126, 2485625, 5206683, 2167927 ####[address] [address] RBC (Bld) [#/Vol] 4.4 E12/L Normal 4.3-5.9 [facility] Comment on above: Performed By: #### 1 5021825, 04071400, 48238307, 02492696, 9570987, 1162118, 4145914 ####[address] [place] [address] WBC corrected for nucl RBC Auto (Bld) [#/Vol] 11.2 E9/L High 4.0-11.0 [facility] Comment on above: Performed By: #### 1 7381869, 75018680, 64981332, 61937395, 1941648, 0576652, 2381186 ####[address] [address] CHEMISTRYOrdered By: SYSTEM SYSTEM on 11-08-2022 Anion gap [Moles/Vol] 11 mmol/L Normal 6 - 16 mEq/L [facility] Calcium [Mass/Vol] 8.8 mg/dL Low 8.9 - 11. 1 mg/dL [facility] Chloride [Moles/Vol] 104 mmol/L Normal 101 - 1 11 mmol/L [facility] Remisol CO2 [Moles/Vol] 27 mmol/L Normal 21 - 31 mmol/L [facility] Creatinine [Mass/Vol] 0.8 mg/dL Normal 0.5 - 1.3 mg/dL [facility] GFR/1.73 sq M.predicted among blacks MDRD (S/P/Bld) [Vol rate/Area] mL/min/1.73 m2 Normal >=59mL/min /1.73 m2 [facility] Chem S GFR/1.73 sq M.predicted among non-blacks MDRD (S/P/Bld) [Vol rate/Area] mL/min/1.73 m2 Normal >=59mL/min /1.73 m2 [facility] Chem S Glucose [Mass/Vol] 115 mg/dL Normal 55 - 199 mg/dL [facility] Potassium [Moles/Vol] 4.2 mmol/L Normal 3.5 - 5.3 mmol/L [facility] Comment on above: Result Comment: 'Spe cimen hemolyzed. Result may be affected. Redraw is recommended.' Sodium [Moles/Vol] 138 mmol/L Normal 135 - 145 mmol/L [facility] Troponin I.cardiac [Mass/Vol] 10.20 pg/mL Low 15.90 - 38.40 pg/mL [facility] Remisol Urea nitrogen [Mass/Vol] 10 mg/dL Normal 5 - 21 mg/dL [facility] Urea nitrogen/Creatinine [Mass ratio] 12 mg/mg Normal 10 - 20 [facility] CHEMISTRYOrdered By: Salome Nair on 11-08-2022 Natriuretic peptide B (Bld) [Mass/Vol] 25 pg/mL Normal 5 - 80 pg/mL [facility] HemeManSS COAGULATIONOrdered By: Jesse Nair on 11-08-2022 aPTT Coag (PPP) [Time] 36.6 s High 25.1 - 36.5 second(s) [facility] Auto Coag INR Coag (PPP) [Relative time] 1.2 {INR} Invalid Interpretation Code [facility] Auto Coag PT Coag (PPP) [Time] 12.9 s High 9.4 - 1 2.5 second(s) [facility] Auto Coag Consent for Treatmenton 0 Consent for Treatment [id number]#[id number]:127 [facility] ED Clinical Summaryon 2022 ED Clinical Summary (Inserted Image. Jaclyn ble to display) [place] [id number] ED Clinical Summary Person Information Name: STEFAN WOOD Corinne/[facility] Age: 61 Years : 1960 Sex: Male Language: Sammarinese PCP: Franki Rangel III, DO Marital Status: Visit Id: Visit Reason: Chest pain; Shortness of breath; SOB Speciality: Acuity: 1 Enc Type: Observation Med Service: Emergency Arrival: 11/08/2022 04:50:09 Discharge: LOS: 000 06:59 Checkin: 11/08/2022 04:50:09 Checkout: 11/08/2022 11:49:59 Dispo Type: Admitted as IP to this [facility] EVENTS: Event Name Event Status Request Date/Time Start Date/Time Complete Date/Time Arrive Complete 11/08/2022 04:50:09 11/08/2022 04:50:09 11/08/2022 04:50:09 Document Home Meds Complete 11/08/2022 04:50:09 11/08/2022 09:45:51 11/08/2022 09:45:51 Triage Complete 11/08/2022 04:50:09 11/08/2022 04:57:04 11/08/2022 04:57:04 Dr Exam Complete 11/08/2022 04:50:59 11/08/2022 04:50:59 11/08/2022 04:50:59 Registration Complete 11/08/2022 04:50:59 11/08/2022 04:51:04 11/08/2022 05:19:10 Bed Assign Complete 11/08/2022 04:51:04 11/08/2022 04:51:04 11/08/2022 04:51:04 RN Exam Complete 11/08/2022 04:51:04 11/08/2022 05:22:24 11/08/2022 05:22:24 EKG Complete 11/08/2022 04:51:14 11/08/2022 04:52:56 Meds Admin Complete 11/08/2022 04:53:50 11/08/2022 05:06:22 Patient Care Request 11/08/2022 04:53:50 RT Request 11/08/2022 04:53:50 Pending Labs Complete 11/08/2022 04:53:50 11/08/2022 05:08:36 11/08/2022 05:39:35 Lab Complete 11/08/2022 04:53:50 11/08/2022 05:08:36 11/08/2022 05:39:35 X-Ray Complete 11/08/2022 04:53:50 11/08/2022 04:56:25 11/08/2022 05:26:43 RT Tx/ABG Complete 11/08/2022 04:53:50 11/08/2022 05:02:55 11/08/2022 05:02:55 RT Tx/ABG Complete 11/08/2022 04:53:50 11/08/2022 05:02:44 11/08/2022 05:02:44 RT Tx/ABG Complete 11/08/2022 04:53:51 11/08/2022 05:02:29 11/08/2022 05:02:29 RT Tx/ABG Complete 11/08/2022 04:53:51 11/08/2022 05:02:37 11/08/2022 05:02:37 Pending Labs Complete 11/08/2022 05:12:56 11/08/2022 05:12:56 11/08/2022 05:39:37 Lab Complete 11/08/2022 05:12:56 11/08/2022 05:12:56 11/08/2022 05:39:37 Pending Labs Complete 11/08/2022 05:16:40 11/08/2022 05:16:40 11/08/2022 05:16:47 Lab Complete 11/08/2022 05:16:40 11/08/2022 05:16:40 11/08/2022 05:16:47 Reg Complete Request 11/08/2022 05:19:10 Wet Read Request 11/08/2022 05:26:43 Meds Admin Complete 11/08/2022 05:57:32 11/08/2022 06:10:19 Dr Exam Complete 11/08/2022 06:49:34 11/08/2022 06:49:34 11/08/2022 06:49:34 Registration Complete 11/08/2022 06:49:34 11/08/2022 08:26:35 11/08/2022 08:26:35 Meds Admin Complete 11/08/2022 07:46:57 11/08/2022 08:01:26 Consult Request 11/08/2022 08:16:26 Hospitalist Consult Request 11/08/2022 08:16:26 Patient Care Request 11/08/2022 08:26:36 Patient Care Request 11/08/2022 08:26:36 Patient Care Request 11/08/2022 08:26:36 Patient Care Request 11/08/2022 08:26:36 Meds Admin Request 11/08/2022 11:42:23 Patient Care Request 11/08/2022 11:43:57 Meds Admin Request 11/08/2022 11:43:57 RT Request 11/08/2022 11:43:57 RT Tx/ABG Request 11/08/2022 11:43:57 Bed Request Request 11/08/2022 11:43:57 Reg Bed Request Request 11/08/2022 11:43:57 Admit Request 11/08/2022 11:43:57 Meds Admin Request 11/08/2022 11:44:31 RT Tx/ABG Request 11/08/2022 11:44:32 RT Tx/ABG Request 11/08/2022 11:44:32 RT Tx/ABG Request 11/08/2022 11:44:32 RT Tx/ABG Request 11/08/2022 11:44:32 Meds Admin Request 11/08/2022 11:45:58 Pending Labs Request 11/08/2022 11:46:31 Lab Request 11/08/2022 11:46:31 Urine Collect Request 11/08/2022 11:46:31 Meds Admin Request 11/08/2022 11:49:37 Inpatient Bed Ready Complete 11/08/2022 11:49:59 11/08/2022 11:49:59 11/08/2022 11:49:59 ADDRESS: [address] [place] [phone] PHYS DOC NOTES: Addendum by David Abarca DO on November 08, 2022 08:16:31 EDT MEDICAL INFORMATION: Prescriptions Given: Medications to Continue with No Changes Other Medications albuterol (Ventolin HFA 90 mcg/inh Aerosol) 2 Puffs Inhalation every 4 hours as needed for wheezing. albuterol-ipratropium (DuoNeb 2.5 mg-0.5 mg/3 mL Soln-Inh) 3 Milliliter Inhalation 4 times a day as needed Shortness of breath or wheezing. atorvastatin (atorvastatin 20 mg Tab) 1 Tablets By Mouth every day. escitalopram (escitalopram 10 mg Tab) 1 Tablets By Mouth every day. fluticasone/umeclidinium/vi lanterol (Trelegy Ellipta inhalation powder) 1 Puffs Inhalation every day. isosorbide mononitrate (isosorbide mononitrate 30 mg ER Tab) 1 Tablets By Mouth every day. Refills: 0. nitroglycerin (Nitro 0.4 mg Tab) 1 Tablets Sublingual every 5 minutes as needed Chest pain. polyethylene glycol 3350 with electrolytes (NuLYTELY Reeder oral powder for reconstitution) Prior to colonoscopy.. Refills: 0. ranolazine (ranolazine 500 mg oral ER Tab) 1 Tablets By Mouth 2 times a day. Refills: 0. PATIENT EDUCATION INFORMATION: Instructions: Follow up: DIAGNOSIS: 1:Acute on chronic respiratory failure; 2:Acute exacerbation of chronic obstructive pulmonary disease (COPD); 3:CAD (coronary arter (more content not included)... [facility] ED Note-Physicianon 11-09-19 ED Note-Physician Basic Information Time Seen: Farzad Castro DO 11/08/2022 04:51 History of Present Illness HPI: Patient is a 61-year-old male past with history of GERD, COPD, dyslipidemia, hypertension, pulmonary fibrosis who presents the ED via EMS from home for shortness of breath. Patient states for the last few days he has been having progressive worsening shortness of breath. He states it is worse with activity and better at rest. He denies any cough, runny nose, sore throat. He denies any fever or chills. He denies any nausea vomiting or diarrhea. He wears 3 L of oxygen via nasal cannula at baseline. EMS reports that they provided a DuoNeb and 125 mg of IV Solu-Medrol and transported. ROS: Pertinent review of systems conducted and is negative except as noted above. Physical exam: General: Ill-appearing with increased respiratory effort HEENT: Mucous membranes moist Neuro: awake and alert Neck: supple, trachea midline Card: Heart regular rate and rhythm no murmur Resp: Lungs diffusely diminished bilaterally. Increased work of breathing with tachypnea and retractions Abd: Soft and nondistended. No tenderness to palpation with no rebound or guarding. Ext: No gross deformity or edema Medical Decision Making MEDICAL DECISION MAKING Number and Complexity of Problems Differential Diagnosis: [] [facility] Data External documents reviewed: N/A My EKG interpretation: Noted in chart if applicable My CT interpretation: N/A My X-ray interpretation: Noted in chart if applicable My Ultrasound interpretation: N/A Decision rules/scores evaluated: N/A Discussed with: N/A Treatment and Disposition ED Course: Neurology the patient is tachypneic with increased work of breathing. He is very diminished on my exam. We will give him breathing treatments as well as IV magnesium for this. He received steroids prior to arrival. Chest x-ray shows no acute process. Blood work is overall reassuring. On reassessment patient is much improved. He is able to speak in more complete sentences but he is still slightly tachypneic. His lung sounds much more open. His work-up is consistent with a COPD exacerbation I discussed with the patient. With him still having some shortness of breath I do believe would benefit from admission for further treatment. Shared decision making: As above Code status: N/A Assessment/Plan COPD exacerbation (J44.1: Chronic obstructive pulmonary disease with (acute) exacerbation) Orders: albuterol, 2.5 mg, 3 mL, Soln-Inh, Inhalation, Once, Stop date 11/08/22 4:53:00 EDT, STAT, Start date 11/08/22 4:53:00 EDT albuterol-ipratropium, 3 mL, Soln-Inh, Inhalation, Once, Stop date 11/08/22 4:53:00 EDT, STAT, Start date 11/08/22 4:53:00 EDT aspirin, 325 mg = 1 tab(s), Tab-EC, Oral, Once, Stop date 11/08/22 5:57:00 EDT, STAT, Start date 11/08/22 5:57:00 EDT, 11/08/22 5:57:00 EDT magnesium sulfate + Generic Diluent 50 mL, 2 gram = 50 mL, IV Piggyback, Once, Stop date 11/08/22 4:53:00 EDT, STAT, Start date 11/08/22 4:53:00 EDT, 166.67 mL/hr, Infuse over 0.3 hour(s), 11/08/22 4:53:00 EDT Automated Diff B-Type Natriuretic Peptide Basic Metabolic Panel CBC w/ Auto Diff Continuous Pulse Oximetry ED Cardiac Monitoring ED Cardiac Monitoring eGFR Oxygen Saturation Oxygen Therapy PT & PTT Rapid COVID Antigen ([facility]) Saline Lock Insert Saline Lock Insert Troponin 0 Hr. XR Chest Single View Medications Administered Given albuterol 0.083% Inh Sharon 3 mL, 2.5 mg, Inhalation albuterol-ipratropium Inh Sharon 3 mL UD, 3 mL, Inhalation aspirin 325 mg Oral EC Tab, 325 mg, Oral magnesium additive 2 gm + premix generic diluent 50 mL, IV Piggyback Disposition Plan Discharge Prescription List Prescriptions No active prescription medications Follow-up No qualifying data available Problem List/Past Medical History Ongoing Espino's esophagus Chronic GERD Cigarette smoker COPD - Chronic obstructive pulmonary disease Dyslipidemia Dysphagia Epigastric pain History of colon polyps History of rectal polyps Home oxygen supply HTN (hypertension) Nicotine abuse Pulmonary fibrosis Schatzki's ring Unintentional weight loss Historical Cholecystectomy COPD (Chronic Obstructive Pulmonary Disease) Assessment Test scale FHx: hypercholesterolemia Procedure/Surgical History Cardiac catheterization, left heart (05/24/2022), Cardiac catheterization, left heart (07/18/2021), EGD - Esophagogastroduodenoscopy (04/04/2021), Catheterization of left heart, Cholecystectomy, hernia reapir, left shoulder/upper arm ORIF. Medications Inpatient albuterol 0.083% Inh Sharon 3 mL, 2.5 mg= 3 mL, Inhalation, Once albuterol-ipratropium Inh Sharon 3 mL UD, 3 mL, Inhalation, Once magnesium additive + premix generic diluent 50 mL Home aspirin 81 mg Oral EC Tab, 81 mg= 1 tab(s), Oral, Daily atorvastatin 20 mg Tab, 20 mg= 1 tab(s), Oral, Daily DuoNeb 2.5 mg-0.5 mg/3 mL Soln-Inh, 3 mL, Inhalation, QID, PRN escitalopram (more content not included)... [facility] Comment on above: Result Comment: Elec tronically Signed By: David Abarca DO\.br\Date and Time Signed: 11/08/22 08:17 EDT ED Patient Education Noteon 11-08-2022 ED Patient Education Note [facility] ED Patient Summaryon 023 ED Patient Summary (Inserted Image. Jaclyn ble to display) [place] [id number] Patient Discharge Instructions Person Information Name: STEFAN WOOD Age: 61 Years Arrival Date: 11/08/2022 04:50:09 Discharge Diagnosis: 1:Acute on chronic respiratory failure; 2:Acute exacerbation of chronic obstructive pulmonary disease (COPD); 3:CAD (coronary artery disease); 4:Chronic GERD; 5:Depression; 6:Nicotine abuse Primary Care Physician: Franki Rangel III, DO Provider Information Primary Provider: Farzad Castro DO Advanced Pull Tab Dealer:None The exam and treatment you received in the Emergency Department were for an urgent problem and are not intended as complete care. It is important that you follow up with a doctor, nurse practitioner, or physician?s dental front office assistant for ongoing care. If your symptoms become worse or you do not improve as expected and you are unable to reach your usual health care provider, you should return to the Emergency Department. We are available 24 hours a day. STEFAN WOOD has been given the following list of patient education materials, prescriptions and follow-up instructions: Follow-up Instructions: In the event that this physician does not participate in your insurance network, please consult with your insurance company to find a nearby participating provider. Patient Education Materials: A MESSAGE TO ALL PATIENTS REGARDING OPIOIDS PRESCRIPTION OPIOIDS: WHAT YOU NEED TO KNOW Prescription opioids can be used to help relieve zzzreqzh-io-rtvuey pain and are often prescribed following a surgery or injury, or for certain health conditions. These medications can be an important part of the treatment but also come with serious risks. It is important to work with your healthcare provider to make sure you are getting the safest, most effective care. WHAT ARE THE RISKS AND SIDE EFFECTS OF OPIOID USE? Prescription opioids carry serious risks of addiction and overdose, especially with prolonged use. An opioid overdose, often marked by slowed breathing, can cause sudden . The use of prescription opioids can have a number of side effects as well, even when taken as directed: ? Tolerance?meaning you might need to take more of the medication for the same pain relief ? Physical dependence?meaning you have symptoms of withdrawal when a medication is stopped ? Increased sensitivity to pain ? Constipation ? Nausea, vomiting, and dry mouth ? Sleepiness and dizziness ? Confusion ? Depression ? Low levels of testosterone that can result in lower sex drive, energy, and strength ? Itching and sweating RISKS ARE GREATER WITH: ? History of drug misuse, substance use disorder, or overdose ? Mental health conditions (such as depression or anxiety) ? Sleep apnea ? Older age (65 years and older) ? Avoid alcohol while taking prescription opioids. Also, unless specifically advised by your health care provider, medications to avoid include: ? Benzodiazepines (such as Xanax or Valium) ? Muscle relaxants (such as Soma or Flexeril) ? Hypnotics (such as Ambien or Lunesta) ? Other prescription opioids KNOW YOUR OPTIONS Talk to your health care provider about ways to manage your pain that don?t involve prescription opioids. Some of these options may actually work better and have fewer risks and side effects. Options may include: ? Pain relievers such as acetaminophen, ibuprofen, and naproxen ? Some medication that are also used for depression or seizures ? Physical therapy and exercise ? Cognitive behavioral therapy, a psychological, goal-directed approach, in which patients learn how to modify physical, behavioral, and emotional triggers of pain and stress. IF YOU ARE PRESCRIBED OPIOIDS FOR PAIN: ? Never take opioids in greater amounts or more often than prescribed. ? Follow up with your primary health care provider. o Work together to create a plan on how to manage your pain. o Talk about ways to help manage your pain that don?t involve prescription opioids. o Talk about any and all concerns and side effects. ? Help prevent misuse and abuse o Never sell or share prescription opioids. o Never use another person?s prescription opioids. ? Store prescription opioids in a secure place and out of reach of others (this may include visitors, children, friends, and family). ? Safely dispose of unused prescription opioids: Find your community drug take-back program or your pharmacy mail-back program, or flush them down the toilet, following guidance from the Food and Drug Administration (www.fda.gov/Drugs/Resource sForYou). ? Visit www.cdc.gov/drugoverdose to learn about the risks of opioids abuse and overdose. ? If you believe you may be struggling with addiction, tell your health customer care associate and ask for guidance or call [facility]?S National Helpline at 5-893-667-DUOA. r Source (more content not included)... [facility] HEMATOLOGYOrdered By: SYSTEM SYSTEM on 11-08-2022 Basophils/100 WBC (Bld) 0.3 % Normal 0.0 - 2.0 % [facility]eAutoSS Basophils/Leukocytes Auto (Bld) [Pure # fraction] 0.0 E9/L Normal 0.0 - 0.2 E9/L [facility]eAutoSS Eosinophils/100 WBC (Bld) 3.7 % Normal 0.0 - 8.0 % [facility]eAutoSS Eosinophils/Leukocytes Auto (Bld) [Pure # fraction] 0.4 E9/L Normal 0.0 - 0.5 E9/L [facility]eAuto[facility] Lymphocytes/100 WBC (Bld) 41.8 % Normal 14.0 - 50.0 % [facility]eAutoSS Lymphocytes/Leukocytes Auto (Bld) [Pure # fraction] 4.7 E9/L High 1.0 - 4.0 E9/L [facility]eAutoSS Monocytes/100 WBC (Bld) 8.3 % Normal 4.0 - 14.0 % [facility] HemeAutoSS Monocytes/Leukocytes Auto (Bld) [Pure # fraction] 0.9 E9/L Normal 0.2 - 1.0 E9/L [facility] HemeAutoSS Neutrophils/100 WBC (Bld) 45.9 % Normal 36.0 - 75.0 % [facility] HemeAutoSS Neutrophils/Leukocytes Auto (Bld) [Pure # fraction] 5.1 E9/L Normal 2.0 - 7.5 E9/L [facility] HemeAutoSS HEMATOLOGYOrdered By: Moose Nair on 11-08-2022 Erythrocyte distribution width (RBC) [Ratio] 13.9 % Normal 10.9 - 14.2 % [facility] HemeAutoSS Hematocrit (Bld) [Volume fraction] 43.5 % Normal 37.7 - 49.0 % [facility] Hemoglobin (Bld) [Mass/Vol] 14.2 g/dL Normal 13.5 - 17.5 gm/dL [facility]eAuto[facility] MCH (RBC) [Entitic mass] 32.5 pg Normal 27.0 - 34.0 pg [facility]eAuto[facility] MCHC (RBC) [Mass/Vol] 32.7 g/dL Normal 31.4 - 36.0 gm/dL [facility]eAuto[facility] MCV (RBC) [Entitic vol] 99.1 fL Normal 80.0 - 100.0 fL [facility]eAutoSS Platelet mean volume (Bld) [Entitic vol] 10.2 fL Normal 6.4 - 10.8 fL [facility] HemeAutoSS Platelets (Bld) [#/Vol] 186.0 E9/L Normal 150.0 - 500.0 E9/L [facility] HemeAutoSS RBC (Bld) [#/Vol] 4.4 E12/L Normal 4.3 - 5.9 E12/L [facility] HemeAutoSS WBC corrected for nucl RBC Auto (Bld) [#/Vol] 11.2 E9/L High 4.0 - 11.0 E9/L [facility] HemeAutoSS Laboratory - Microbiology an d Antimicrobial susceptibilityOrdered By: Maria D Aguero on 11-08-2022 Bacteria identified Respiratory culture Nom (Sput) Sputum unsatisfactory for culture. Microscopic evaluation >25 Epithelial cells/ lpf indicates significant upper respiratory contamination. Submit another specimen. [facility] MICRO OTHER TESTSOrdered By: Salome Nair on 11-08-2022 Rapid COV Int NEG Ctl Pass (11/08/22 5:03 AM) Normal [facility] Man Sero Rapid COV Int POS Ctl Pass (11/08/22 5:03 AM) Normal [facility] Man Sero SARS-CoV+SARS-CoV-2 (COVID-19) Ag IA.rapid Ql (Resp) Not Detected (11/08/22 5:03 AM) Normal Not Detected [facility] Man Sero Monitor Recordon 11-08-2022 Monitor Record [id number]#[id number]:127 [facility] Monitor Record [id number]#1.00CD:127 [facility] Monitor Record [id number]#[id number]:127 [facility] PT & PTTon 11-08-2022 aPTT Coag (PPP) [Time] 36.6 second(s) High 25.1-36.5 [facility] Comment on above: Result Comment: Para meter 15 days - 4 weeks 1 - 5 months 6 - 11 months 1 - 5 years 6 - 10 years 11 - 17 years PTT Mean: 35.4 (27.6-45.6) Mean: 33.5 (24.8-40.7) Mean: 32.4 (25.1-40.7) Mean: 31.6 (24.0-39.2) Mean: 31.6 (26.9-38.7) Mean: 31.0 (24.6-38.4) Pediatric Reference ranges were obtained from a study by Tavon Little et al. prepared from 1437 samples obtained at 7 different centers using the same coagulation reagent and instrumentation as [facility]. Currently there are no coagulation studies available worldwide for children to 14 days, and no normal ranges. Heparin therapeutic range (represented by Anti-Factor Xa activity of 0.2 - 0.4 U/mL) corresponds to PTT of 56.6 - 109.0 sec. Performed By: #### 1 [id number], [id number], [id number], [id number], [id number], [id number] ####[facility] [address] [place] [address] INR Coag (PPP) [Relative time] 1.2 {INR} Invalid Interpretation Code [facility] Comment on above: Result Comment: INR results are specifically intended to assess patients stabilized on long-term Anticoagulation therapy suggested INR?s ?Less Intensive Anticoagulation? 2.0 ? 3.0 Conventional Range 3.0 ? 4.5 Performed By: #### 1 [id number], [id number], [id number], [id number], [id number], [id number] ####[facility] [address] [place] [address] PT Coag (PPP) [Time] 12.9 second(s) High 9.4-12.5 [facility] Comment on above: Result Comment: 15 d ays - 4 weeks 1 - 5 months 6 -11 months 1- 5 years 6-10 years 11 -17 years Mean: 11.2 (9.5-12.6) Mean: 11.0 (9.7-12.8) Mean: 11.0 (9.8-13.0) Mean: 11.3 (9.9-13.4) Mean: 11.7 (10.0-14.6) Mean: 11.8 (10.0 - 14.1) Pediatric Reference ranges were obtained from a study by Tavon Little et al. prepared from 1437 samples obtained at 7 different centers using the same coagulation reagent and instrumentation as [facility]. Currently there are no coagulation studies available worldwide for children to 14 days, and no normal ranges. Performed By: #### 1 [id number], [id number], [id number], [id number], [id number], 7985116, [id number] ####[facility] [address] [place] [address] Rapid COVID Antigen ([facility])on 11-08-2022 Rapid COV Int NEG Ctl Pass Normal [facility] Comment on above: Performed By: #### 2 [id number] ####[facility] [address] [place] [address] Rapid COV Int POS Ctl Pass Normal [facility] Comment on above: Performed By: #### 2 [id number] ####[facility] [address] [place] [address] SARS-CoV+SARS-CoV-2 (COVID-19) Ag IA.rapid Ql (Resp) Not detected Normal Not Detected [facility] Comment on above: Result Comment: The [employer]ogbooks System for Rapid Detection of SARS-CoV-2 is a chromatographic digital immunoassay intended for the direct and qualitative detection of SARS-CoV-2 nucleocapsid antigens in nasal swabs from individuals who are suspected of COVID-19 by their healthcare provider within the first five days of the onset of symptoms. Negative results should be treated as presumptive, do not rule out SARS-CoV-2 infection and should not be used as the sole basis for treatment or patient management decisions, including infection control decisions. Negative results should be considered in the context of a patient?s recent exposures, history and the presence of clinical signs and symptoms consistent with COVID-19, and confirmed with a molecular assay, if necessary, for patient management. For in vitro diagnostic use. In the [facility], only for use under an Emergency Use Authorization. In the [place], this test has not been FDA cleared or approved; this test has been authorized by FDA under an EUA for use by authorized laboratories; use by laboratories certified under the CLIA, 42 U.S.C. ?263a, that meet requirements to perform moderate, high, or waived complexity tests and at the Point of Care (POC), i.e., in patient care settings operating under a CLIA Certificate of Waiver, Certificate of Compliance, or Certificate of Accreditation. This test has been authorized only for the detection of proteins from SARS-CoV-2, not for any other viruses or pathogens; and, in the [place], this test is only authorized for the duration of the declaration that circumstances exist justifying the authorization of emergency use of in vitro diagnostics for detection and/or diagnosis of the virus that causes COVID-19 under Section 564(b)(1) of the Act, 21 U.S.C. ? 360bbb-3(b)(1), unless the authorization is terminated or revoked sooner. Performed By: #### 2 [id number] ####[facility] [address] [place] [address] ADMITTED TO INTENSIVE CARE UNIT FOR CONDITION OF INTEREST:FIND:PT: NO Normal [facility] Comment on above: Performed By: #### 2 [id number] ####[place] [address] EMPLOYED IN A HEALTHCARE SETTING:FIND:PT: NO Normal [facility] Comment on above: Performed By: #### 2 [id number] ####[place] [address] FIRST TEST FOR CONDITION OF INTEREST:FIND:PT: Unknown Normal [facility] Comment on above: Performed By: #### 2 [id number] ####[place] [address] HAS SYMPTOMS RELATED TO CONDITION OF INTEREST:FIND:PT: YES Normal [facility] Comment on above: Performed By: #### 2 [id number] ####[place] [address] HOSPITALIZED FOR CONDITION OF INTEREST:FIND:PT: Unknown Normal [facility] Comment on above: Performed By: #### 2 [id number] ####[place] [address] STATUS:FIND:PT: NO Normal [facility] Comment on above: Performed By: #### 2 [id number] ####[place] [address] RESIDES IN A CONGREGATE CARE SETTING:FIND:PT: NO Normal [facility] Comment on above: Performed By: #### 2 [id number] ####[place] [address] Troponin 0 Hr.on 11-08-2022 Troponin I.cardiac [Mass/Vol] 10.20 pg/mL Low 15.90-38.4 0 [facility] Comment on above: Result Comment: The 95% CI (Confidence Interval) PPV (Positive Predictive Value) for myocardial infarction in females is 38 pg/mL, in males 51 pg/mL. The results should be used in conjunction with clinical conditions of myocardial infarction. (Access High Sensitivity Troponin I Instructions For Use, Chalo Titi, March 2018) Performed By: #### 1 [id number], [id number], [id number], [id number], [id number], [id number], [id number] ####[facility] [address] [place] [address] XR Chest Single Viewon 11-08 XR Chest Single View Exam Date/Time: 11/08/2022 05:26 EDT Reason for Exam: Chest pain Report IMPRESSION: CHRONIC LUNG DISEASE. NO EVIDENCE OF ACUTE CHEST DISEASE. CLINICAL HISTORY: Chest pain. Shortness of breath. Smoker. COMPARISON: 07/05/2022. COMMENT: The heart is normal in size. The mediastinum is unremarkable. There is hyperinflation and hyperlucency of the lungs, findings consistent with COPD. No superimposed infiltration nor pleural effusion is evident. Partially included within the alqle-az-ngxl is an intramedullary festus and screws associated with the proximal left humerus. No significant change is noted when compared to the prior exam. Ordering Provider: Farzad Castro FINAL REPORT Dictated: 11/08/2022 7:57 am Kartik Norris M.D. Signed (Electronic Signature): 11/08/2022 7:57 am Signed by: Kartik Norris M.D. Transcribed by: ANGELITA Technologist: PERCY Technical Comments Radiation Dose: Ka,r in mGy = na DAP = na Normal [facility] eGFRon 11-08-2022 GFR/1.73 sq M.predicted among blacks MDRD (S/P/Bld) [Vol rate/Area] mL/min/{1.73_m2} Normal >=59 [facility] Comment on above: Order Comment: Order added by Discern Expert. Result Comment: eGFR is race adjusted. AA=. Performed By: #### 1 [id number], [id number], [id number], [id number], 5080631, 9550682, [id number] ####[facility] [address] [place] [address] GFR/1.73 sq M.predicted among non-blacks MDRD (S/P/Bld) [Vol rate/Area] mL/min/{1.73_m2} Normal >=59 [facility] Comment on above: Order Comment: Order added by Discern Expert. Result Comment: Forming Process Worker miko kidney disease could be indicated at eGFR's of less than 60 mL/min/1.73m2. Kidney failure is indicated at less than 15 mL/min/1.73m2. Performed By: #### 1 [id number], [id number], [id number], [id number], 0874504, 8879749, [id number] ####[facility] [address] [place] [address] Pre-Certification Formon Pre-Certification Form [id number]. 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 Orders SocHx: Current every day smoker Tobacco Use Screening; Status:Complete; Done: 17Aug2022 Patient Instructions Please bring all medicines, vitamins, and herbal supplements with you when you come to the office. Prescriptions will not be filled unless you are compliant with your follow up appointments or have a follow up appointment scheduled as per instruction of your physician. Refills should be requested at the time of your visit. FALL PREVENTION EDUCATION GIVEN PLAN: Through informed decision making process incorporating patients unique circumstances, the following treatment plan will be initiated: 1. Prescription drug management of cardiovascular medication for efficacy, adherence to treatment, side effect assessment and polypharmacy. Current treatment clinically warranted and to continue without modifications. 2. Return for follow-up; in the interim, contact the office if new symptoms arise. Dr. Pedro 6 months [facility] f/u: 'feeling pretty good today' STEFAN WOOD is being seen for chest pain. Patient presents the office today ambulatory with steady gait. May 2022 : patient was recently hospitalized at [facility]. The patient was seen in Cardiology consult with subsequent cardiovascular management by [facility]. Hospitalization records have been reviewed. Reason for Cardiology Consultation: elevated troponin and chest pain, transient inferior/anterior ST changes Consulting Regrinder Operator: Dr. 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 Patient presents the office today reports doing pretty good . Right radial cath site is healed without adverse sequela. With addition of isosorbide and Ranexa he has had no recurrent chest pain. He remains very active, carried out his garbage before he came to the office today without any type of complaints. He has baseline functional class IIb shortness of breath due to COPD and appears to be at baseline, denies any increase in rescue inhaler. He denies any type of palpitations. He has asymptomatic hypotension in the office today. I checked bilateral blood pressures and they are equal. He denies any dizziness or lightheadedness and actually reports feeling better today than he has in a long time . Even during hospitalization systolic blood pressure was recorded at 108. There is no drop with standing. He has cut back from 3 packs daily to approximately half a pack. Declines pharmaceutical assistance. Discussed the dynamic nature of coronary artery disease and the importance of seeking medical attention if new symptoms arise. History of Present Illness The patient states he has been generally doing well since the last visit. Comorbid Illnesses: hyperlipidemia. Symptoms: denies chest pain at rest, denies exertional chest pain, stable dyspnea, denies fatigue, denies exercise intolerance, denies palpitations, denies edema, denies orthopnea, denies dizziness and denies orthostatic dizziness. Associated symptoms: no syncope. His symptoms do not limit his activities. Disease Monitoring: The patient has had a stable weight. Medications: the patient is adherent with his medication regimen. He denies medication side effects. Surgical History Problems History of Arm surgery History of Cardiac catheterization History of Cholecystectomy History of Complete colonoscopy Managed By: Laure VICK, Farrukh Current Meds Medication NameInstruction Aspirin EC 81 MG Oral Tablet Delayed ReleaseTAKE 1 TABLET DAILY. Atorvastatin Calcium 20 MG Oral TabletTAKE 1 TABLET AT BEDTIME Ipratropium-Albuterol 0.5-2.5 (3) MG/3ML Inhalation SolutionINHALE 3 ML VIA NEBULIZER FOUR TIMES DAILY Isosorbide Mononitrate ER 30 MG Oral Tablet Extended Release 24 HourTAKE 1 TABLET DAILY. Nitroglycerin 0.4 MG Sublingual Tablet SublingualPLACE 1 TABLET UNDER THE TONGUE EVERY 5 MINUTES FOR UP TO 3 DOSES NEEDED FOR CHEST PAIN.CALL 911 IF PAIN PERSISTS. Omeprazole 40 MG Oral Capsule Delayed ReleaseTAKE 1 CAPSULE Daily (more content not included)... Normal [employer] CHEMISTRYOrdered By: SYSTEM SYSTEM on 07-06-2022 Anion gap [Moles/Vol] 8 mmol/L Normal 6 - 16 mEq/L [facility] Calcium [Mass/Vol] 8.9 mg/dL Normal 8.9 - 11. 1 mg/dL [facility] Chloride [Moles/Vol] 104 mmol/L Normal 101 - 1 11 mmol/L [facility] CO2 [Moles/Vol] 29 mmol/L Normal 21 - 31 mmol/L [facility] Creatinine [Mass/Vol] 0.9 mg/dL Normal 0.5 - 1.3 mg/dL [facility] GFR/1.73 sq M.predicted among blacks MDRD (S/P/Bld) [Vol rate/Area] mL/min/1.73 m2 Normal >=59mL/min /1.73 m2 [facility] Chem S GFR/1.73 sq M.predicted among non-blacks MDRD (S/P/Bld) [Vol rate/Area] mL/min/1.73 m2 Normal >=59mL/min /1.73 m2 [facility] Chem S Glucose [Mass/Vol] 134 mg/dL Normal 55 - 199 mg/dL [facility] Potassium [Moles/Vol] 4.8 mmol/L Normal 3.5 - 5.3 mmol/L [facility] Prealbumin IA [Mass/Vol] 14 mg/dL Low 17 - 42 mg/dL [facility] Sodium [Moles/Vol] 136 mmol/L Normal 135 - 145 mmol/L [facility] Urea nitrogen [Mass/Vol] 17 mg/dL Normal 5 - 21 mg/dL [facility] Urea nitrogen/Creatinine [Mass ratio] 19 mg/mg Normal 10 - 20 [facility] COAGULATIONOrdered By: Arianna Feliciano on 07-06-2022 aPTT Coag (PPP) [Time] 35.3 s Normal 25.1 - 36.5 second(s) [facility] Auto Coag INR Coag (PPP) [Relative time] 1.2 {INR} Invalid Interpretation Code [facility] Auto Coag PT Coag (PPP) [Time] 13.0 s High 9.4 - 1 2.5 second(s) [facility] Auto Coag HEMATOLOGYOrdered By: SYSTEM SYSTEM on 07-06-2022 Basophils/100 WBC (Bld) 0.2 % Normal 0.0 - 2.0 % [facility] Basophils/Leukocytes Auto (Bld) [Pure # fraction] 0.0 E9/L Normal 0.0 - 0.2 E9/L [facility] Eosinophils/100 WBC (Bld) 0.0 % Normal 0.0 - 8.0 % [facility] Eosinophils/Leukocytes Auto (Bld) [Pure # fraction] 0.0 E9/L Normal 0.0 - 0.5 E9/L [facility] Lymphocytes/100 WBC (Bld) 7.8 % Low 14.0 - 50.0 % [facility] Lymphocytes/Leukocytes Auto (Bld) [Pure # fraction] 1.0 E9/L Normal 1.0 - 4.0 E9/L [facility] Monocytes/100 WBC (Bld) 4.6 % Normal 4.0 - 14.0 % [facility] Monocytes/Leukocytes Auto (Bld) [Pure # fraction] 0.6 E9/L Normal 0.2 - 1.0 E9/L [facility] Neutrophils/100 WBC (Bld) 87.4 % High 36.0 - 75.0 % [facility] Neutrophils/Leukocytes Auto (Bld) [Pure # fraction] 11.4 E9/L High 2.0 - 7.5 E9/L [facility] HEMATOLOGYOrdered By: Minda Hart on 07-06-2022 Erythrocyte distribution width (RBC) [Ratio] 14.3 % High 10.9 - 14.2 % [facility] Hematocrit (Bld) [Volume fraction] 40.5 % Normal 37.7 - 49.0 % [facility] Hemoglobin (Bld) [Mass/Vol] 14.0 g/dL Normal 13.5 - 17.5 gm/dL [facility] MCH (RBC) [Entitic mass] 32.9 pg Normal 27.0 - 34.0 pg [facility] MCHC (RBC) [Mass/Vol] 34.6 g/dL Normal 31.4 - 36.0 gm/dL [facility] MCV (RBC) [Entitic vol] 95.2 fL Normal 80.0 - 100.0 fL [facility] Platelet mean volume (Bld) [Entitic vol] 10.3 fL Normal 6.4 - 10.8 fL [facility] Platelets (Bld) [#/Vol] 171.0 E9/L Normal 150.0 - 500.0 E9/L [facility] RBC (Bld) [#/Vol] 4.3 E12/L Normal 4.3 - 5.9 E12/L [facility] WBC corrected for nucl RBC Auto (Bld) [#/Vol] 13.1 E9/L High 4.0 - 11.0 E9/L [facility] CHEMISTRYOrdered By: SYSTEM SYSTEM on 07-05-2022 Troponin I.cardiac [Mass/Vol] 1066.40 pg/mL Invalid Interpretation Code 15.90 - 38.40 pg/mL [facility] Comment on above: Result Comment: Crit ical Result verified by previous result\ Critical Result [id number]:[id number] Called to DAVID ABARCA at ER by SHARRI OLSEN and read back for confirmation at 07/05/2022 08:00:18 Troponin I.cardiac [Mass/Vol] 1320.90 pg/mL Invalid Interpretation Code 15.90 - 38.40 pg/mL [facility] Comment on above: Result Comment: Crit ical Result verified by previous result\ Critical Result [id number] Called to AARON HELMS at ER by TAINA NAIR and read back for confirmation at 07/05/2022 05:39:45 Anion gap [Moles/Vol] 16 mmol/L Normal 6 - 16 mEq/L [facility] Remisol Calcium [Mass/Vol] 9.2 mg/dL Normal 8.9 - 11. 1 mg/dL [facility] Chloride [Moles/Vol] 99 mmol/L Low 101 - 1 11 mmol/L [facility] CO2 [Moles/Vol] 26 mmol/L Normal 21 - 31 mmol/L [facility] Creatinine [Mass/Vol] 1.0 mg/dL Normal 0.5 - 1.3 mg/dL [facility] Remisol GFR/1.73 sq M.predicted among blacks MDRD (S/P/Bld) [Vol rate/Area] mL/min/1.73 m2 Normal >=59mL/min /1.73 m2 [facility] Chem S GFR/1.73 sq M.predicted among non-blacks MDRD (S/P/Bld) [Vol rate/Area] mL/min/1.73 m2 Normal >=59mL/min /1.73 m2 [facility] Chem S Glucose [Mass/Vol] 94 mg/dL Normal 55 - 199 mg/dL [facility] Potassium [Moles/Vol] 4.2 mmol/L Normal 3.5 - 5.3 mmol/L [facility] Sodium [Moles/Vol] 137 mmol/L Normal 135 - 145 mmol/L [facility] Troponin I.cardiac [Mass/Vol] 1781.60 pg/mL Invalid Interpretation Code 15.90 - 38.40 pg/mL [facility] Remisol Comment on above: Result Comment: Crit ical Result verified by repeat analysis\ Critical Result [id number] Called to SUSAN SAWANT at by TAINA NAIR and read back for confirmation at 07/05/2022 02:23:53 Urea nitrogen [Mass/Vol] 10 mg/dL Normal 5 - 21 mg/dL [facility] Remisol Urea nitrogen/Creatinine [Mass ratio] 10 mg/mg Normal 10 - 20 [facility] CHEMISTRYOrdered By: Salome Nair on 07-05-2022 Natriuretic peptide B (Bld) [Mass/Vol] 76 pg/mL Normal 5 - 80 pg/mL [facility] COAGULATIONOrdered By: Jesse Nair on 07-05-2022 aPTT Coag (PPP) [Time] 44.8 s High 25.1 - 36.5 second(s) [facility] INR Coag (PPP) [Relative time] 1.3 {INR} Invalid Interpretation Code [facility] PT Coag (PPP) [Time] 14.2 s High 9.4 - 1 2.5 second(s) [facility] Auto Co[facility] HEMATOLOGYOrdered By: SYSTEM SYSTEM on 07-05-2022 Basophils/100 WBC (Bld) 1.7 % Normal 0.0 - 2.0 % [facility] Basophils/Leukocytes Auto (Bld) [Pure # fraction] 0.1 E9/L Normal 0.0 - 0.2 E9/L [facility] Eosinophils/100 WBC (Bld) 2.9 % Normal 0.0 - 8.0 % [facility] Eosinophils/Leukocytes Auto (Bld) [Pure # fraction] 0.2 E9/L Normal 0.0 - 0.5 E9/L [facility] Lymphocytes/100 WBC (Bld) 15.9 % Normal 14.0 - 50.0 % [facility] Lymphocytes/Leukocytes Auto (Bld) [Pure # fraction] 1.2 E9/L Normal 1.0 - 4.0 E9/L [facility] Monocytes/100 WBC (Bld) 15.1 % High 4.0 - 14.0 % [facility] Monocytes/Leukocytes Auto (Bld) [Pure # fraction] 1.1 E9/L High 0.2 - 1.0 E9/L [facility] Neutrophils/100 WBC (Bld) 64.4 % Normal 36.0 - 75.0 % [facility] Neutrophils/Leukocytes Auto (Bld) [Pure # fraction] 4.8 E9/L Normal 2.0 - 7.5 E9/L [facility] HEMATOLOGYOrdered By: Moose Nair on 07-05-2022 Erythrocyte distribution width (RBC) [Ratio] 14.3 % High 10.9 - 14.2 % [facility] Hematocrit (Bld) [Volume fraction] 41.1 % Normal 37.7 - 49.0 % [facility] Hemoglobin (Bld) [Mass/Vol] 14.0 g/dL Normal 13.5 - 17.5 gm/dL [facility] MCH (RBC) [Entitic mass] 32.2 pg Normal 27.0 - 34.0 pg [facility] MCHC (RBC) [Mass/Vol] 34.0 g/dL Normal 31.4 - 36.0 gm/dL [facility] MCV (RBC) [Entitic vol] 94.7 fL Normal 80.0 - 100.0 fL [facility] Platelet mean volume (Bld) [Entitic vol] 11.1 fL High 6.4 - 10.8 fL [facility] Platelets (Bld) [#/Vol] 165.0 E9/L Normal 150.0 - 500.0 E9/L [facility] RBC (Bld) [#/Vol] 4.3 E12/L Normal 4.3 - 5.9 E12/L [facility] WBC corrected for nucl RBC Auto (Bld) [#/Vol] 7.4 E9/L Normal 4.0 - 11.0 E9/L [facility] MICRO OTHER TESTSOrdered By: Salome Nair on 07-05-2022 Influenzae A Ag Negative (07/05/22 1:39 AM) Normal Negative [facility] Man Sero Influenzae B Ag Negative (07/05/22 1:39 AM) Normal Negative [facility] Rapid COV Int NEG Ctl Pass (07/05/22 1:39 AM) Normal [facility] Rapid COV Int POS Ctl Pass (07/05/22 1:39 AM) Normal [facility] Man Sero SARS-CoV+SARS-CoV-2 (COVID-19) Ag IA.rapid Ql (Resp) Not Detected (07/05/22 1:39 AM) Normal Not Detected [facility] No Panel InformationOrdered By: ANGPROCESSSERVER MICROBIOLOGY on 07-05-2022 Blood Culture Charcoal No growth at 3 da ys. Final to follow at [address] [facility] Blood Culture Charcoal No growth at 3 da ys. Final to follow at [address] [facility] CHEMISTRYOrdered By: SYSTEM SYSTEM on 05-24-2022 Troponin I.cardiac [Mass/Vol] 2338.60 pg/mL Invalid Interpretation Code 15.90 - 38.40 pg/mL [facility] Comment on above: Result Comment: Crit ical Result verified by previous result\ Critical Result [id number] Called to NANCY ARORA at by TAINA NAIR and read back for confirmation at 05/24/2022 20:36:09 Troponin I.cardiac [Mass/Vol] 3316.90 pg/mL Invalid Interpretation Code 15.90 - 38.40 pg/mL [facility] Comment on above: Result Comment: Crit ical Result verified by repeat analysis\ Critical Result [id number] Called to NIRANJAN JERRY at 2N by TAINA NAIR and read back for confirmation at 05/24/2022 18:51:40 Troponin I.cardiac [Mass/Vol] 2302.70 pg/mL Invalid Interpretation Code 15.90 - 38.40 pg/mL [facility] Comment on above: Result Comment: Crit ical Result [id number]:2302.7 Called to YNEY MEJIA at by JACQUELIN KEE and read back for confirmation at 05/24/2022 13:35:20 Anion gap [Moles/Vol] 12 mmol/L Normal 6 - 16 mEq/L [facility] Calcium [Mass/Vol] 9.2 mg/dL Normal 8.9 - 11. 1 mg/dL [facility] Chloride [Moles/Vol] 102 mmol/L Normal 101 - 1 11 mmol/L [facility] CO2 [Moles/Vol] 28 mmol/L Normal 21 - 31 mmol/L [facility] Creatinine [Mass/Vol] 1.0 mg/dL Normal 0.5 - 1.3 mg/dL [facility] GFR/1.73 sq M.predicted among blacks MDRD (S/P/Bld) [Vol rate/Area] mL/min/1.73 m2 Normal >=59mL/min /1.73 m2 [facility] Chem S GFR/1.73 sq M.predicted among non-blacks MDRD (S/P/Bld) [Vol rate/Area] mL/min/1.73 m2 Normal >=59mL/min /1.73 m2 [facility] Chem S Glucose [Mass/Vol] 124 mg/dL Normal 55 - 199 mg/dL [facility] Potassium [Moles/Vol] 4.6 mmol/L Normal 3.5 - 5.3 mmol/L [facility] Sodium [Moles/Vol] 137 mmol/L Normal 135 - 145 mmol/L [facility] Urea nitrogen [Mass/Vol] 12 mg/dL Normal 5 - 21 mg/dL [facility] Urea nitrogen/Creatinine [Mass ratio] 12 mg/mg Normal 10 - 20 [facility] CHEMISTRYOrdered By: Calista vega on 05-24-2022 Natriuretic peptide B (Bld) [Mass/Vol] 15 pg/mL Normal 5 - 80 pg/mL [facility] COAGULATIONOrdered By: Arianna Olsen on 05-24-2022 aPTT Coag (PPP) [Time] 41.7 s High 25.1 - 36.5 second(s) [facility] INR Coag (PPP) [Relative time] 1.2 {INR} Invalid Interpretation Code [facility] PT Coag (PPP) [Time] 12.8 s High 9.4 - 1 2.5 second(s) [facility] HEMATOLOGYOrdered By: SYSTEM SYSTEM on 05-24-2022 Basophils/100 WBC (Bld) 1.1 % Normal 0.0 - 2.0 % [facility] Basophils/Leukocytes Auto (Bld) [Pure # fraction] 0.1 E9/L Normal 0.0 - 0.2 E9/L [facility] Eosinophils/100 WBC (Bld) 6.9 % Normal 0.0 - 8.0 % [facility] Eosinophils/Leukocytes Auto (Bld) [Pure # fraction] 0.7 E9/L High 0.0 - 0.5 E9/L [facility] Lymphocytes/100 WBC (Bld) 40.8 % Normal 14.0 - 50.0 % [facility] HemeAutoSS Lymphocytes/Leukocytes Auto (Bld) [Pure # fraction] 4.0 E9/L Normal 1.0 - 4.0 E9/L [facility] Monocytes/100 WBC (Bld) 7.5 % Normal 4.0 - 14.0 % [facility]eAuto[facility] Monocytes/Leukocytes Auto (Bld) [Pure # fraction] 0.7 E9/L Normal 0.2 - 1.0 E9/L [facility] Neutrophils/100 WBC (Bld) 43.7 % Normal 36.0 - 75.0 % [facility] Neutrophils/Leukocytes Auto (Bld) [Pure # fraction] 4.3 E9/L Normal 2.0 - 7.5 E9/L [facility] HEMATOLOGYOrdered By: Ann vasquez on 05-24-2022 Erythrocyte distribution width (RBC) [Ratio] 14.1 % Normal 10.9 - 14.2 % [facility] Hematocrit (Bld) [Volume fraction] 44.7 % Normal 37.7 - 49.0 % [facility] Hemoglobin (Bld) [Mass/Vol] 14.8 g/dL Normal 13.5 - 17.5 gm/dL [facility] MCH (RBC) [Entitic mass] 32.2 pg Normal 27.0 - 34.0 pg [facility] MCHC (RBC) [Mass/Vol] 33.2 g/dL Normal 31.4 - 36.0 gm/dL [facility] MCV (RBC) [Entitic vol] 97.2 fL Normal 80.0 - 100.0 fL [facility] Platelet mean volume (Bld) [Entitic vol] 10.3 fL Normal 6.4 - 10.8 fL [facility] Platelets (Bld) [#/Vol] 234.0 E9/L Normal 150.0 - 500.0 E9/L [facility] RBC (Bld) [#/Vol] 4.6 E12/L Normal 4.3 - 5.9 E12/L [facility] WBC corrected for nucl RBC Auto (Bld) [#/Vol] 9.8 E9/L Normal 4.0 - 11.0 E9/L [facility] Vital Signs Date Time Vital Sign Value Performing Clinician Facility 10-25-2023 13:06-0400 Diastolic blood pressure 76 mm[Hg] Camille Muniz [facility] 10-25-2023 13:06-0400 Heart rate 101 /min Camille Muniz [facility] 10-25-2023 13:06-0400 Mean blood pressure 89 mm[Hg] Kaylinn Dokken [facility] 10-25-2023 13:06-0400 Respiratory rate 18 /min Kaylinn Dokken [facility] 10-25-2023 13:06-0400 SaO2% (BldA) [Mass fraction] 95 % Kaylinn Dokken [facility] 10-25-2023 13:06-0400 Systolic blood pressure 114 mm[Hg] Kaylinn Dokken [facility] 10-25-2023 11:42-0400 Diastolic blood pressure 70 mm[Hg] Kaylinn Dokken [facility] 10-25-2023 11:42-0400 Heart rate 99 /min Kaylinn Dokken [facility] 10-25-2023 11:42-0400 Mean blood pressure 84 mm[Hg] Kaylinn Dokken [facility] 10-25-2023 11:42-0400 Respiratory rate 28 /min Kaylinn Dokken [facility] 10-25-2023 11:42-0400 SaO2% (BldA) [Mass fraction] 96 % Kaylinn Dokken [facility] 10-25-2023 11:42-0400 Systolic blood pressure 112 mm[Hg] Kaylinn Dokken [facility] 10-25-2023 10:35-0400 Diastolic blood pressure 72 mm[Hg] Kaylinn Dokken [facility] 10-25-2023 10:35-0400 Heart rate 79 /min Kaylinn Dokken [facility] 10-25-2023 10:35-0400 Mean blood pressure 87 mm[Hg] Kaylinn Dokken [facility] 10-25-2023 10:35-0400 Respiratory rate 19 /min Kaylinn Dok[facility] 10-25-2023 10:35-0400 SaO2% (BldA) [Mass fraction] 94 % Kaylinn Dokken [facility] 10-25-2023 10:35-0400 Systolic blood pressure 116 mm[Hg] Kaylinn Dokken [facility] 10-25-2023 06:10-0400 Blood Pressure Location Kaylinn Dokken [facility] 10-25-2023 05:18-0400 Blood Pressure Location Kaylinn Dokken [facility] 10-25-2023 04:10-0400 Blood Pressure Location Kaylinn Dokken [facility] 10-25-2023 01:07-0400 Respiratory rate 32 /min Asmitaylinn Dokken [facility] 10-25-2023 00:55-0400 Respiratory rate 32 /min Asmitaylinn Dokken [facility] 10-25-2023 00:49-0400 SaO2% (BldA) [Mass fraction] 95.3 % Asmitaylinn Dokken [facility] Resp Auto SS 10-25-2023 00:15-0400 Body temperature 97.7 [degF] Kaylinn Dokken [facility] 10-25-2023 00:15-0400 Heart rate 93 /min Camille Muniz [facility] 05-08-2023 12:48-0400 Body height 193 cm Ami Wood RAILROADER-JV [employer]ASEBALL [employer]ACH Work Phone: [facility] 05-08-2023 12:48-0400 Body mass index (BMI) [Ratio] 23.81 kg/m2 Ami Wood RAILROADER-JV [employer]ACH Work Phone: [facility] 05-08-2023 12:48-0400 Body weight 88.72 kg Ami Wood RAILROADER-JV [employer]ACH Work Phone: [facility] 05-08-2023 12:48-0400 Diastolic blood pressure 60 mm[Hg] Ami Wood RAILROADER-JV [employer]ACH Work Phone: [facility] 05-08-2023 12:48-0400 Heart rate 88 /min Ami Wood RAILROADER-JV [employer]ACH Work Phone: [facility] 05-08-2023 12:48-0400 Systolic blood pressure 100 mm[Hg] Ami Wood RAILROADER-JV [employer]BALL COACH Work Phone: [facility] 11-10-2022 13:08-0400 Hourly Rounding Kevyn Willie [facility] 11-10-2022 13:08-0400 Promise to Return Kevyn Willie [facility] 11-10-2022 12:56-0400 Heart rate 70 /min Kevyn Willie [facility] 11-10-2022 12:56-0400 SaO2% (BldA) [Mass fraction] 95 % Kevyn Willie [facility] 11-10-2022 12:56-0400 Respiratory rate 16 /min Kevyn Willie [facility] 11-10-2022 12:55-0400 Diastolic blood pressure 65 mm[Hg] Kevyn Willie [facility] 11-10-2022 12:55-0400 Mean blood pressure 76 mm[Hg] Kevyn Willie [facility] 11-10-2022 12:55-0400 Systolic blood pressure 100 mm[Hg] Kevyn Willie [facility] 11-10-2022 12:55-0400 Body temperature 98.24 [degF] Kevyn Willie [facility] 11-10-2022 12:51-0400 Respiratory rate 16 /min Kevyn Willie [facility] 11-10-2022 12:34-0400 Respiratory rate 16 /min Kevyn Willie [facility] 11-10-2022 12:30-0400 Hourly Rounding Kevyn Willie [facility] 11-10-2022 12:30-0400 Promise to Return Kevyn Willie [facility] 11-10-2022 11:30-0400 Hourly Rounding Kevyn Willie [facility] 11-10-2022 11:30-0400 Promise to Return Kevyn Willie [facility] 11-10-2022 07:54-0400 Heart rate 68 /min Kevyn Willie [facility] 11-10-2022 07:54-0400 SaO2% (BldA) [Mass fraction] 95 % Kevyn Willie [facility] 11-10-2022 07:53-0400 Diastolic blood pressure 69 mm[Hg] Kevyn Willie [facility] 11-10-2022 07:53-0400 Mean blood pressure 83 mm[Hg] Kevyn Willie [facility] 11-10-2022 07:53-0400 Systolic blood pressure 111 mm[Hg] Kevyn Willie [facility] 11-10-2022 07:53-0400 Body temperature 97.88 [degF] Kevyn Willie [facility] 11-10-2022 07:51-0400 Heart rate 75 /min Kevyn Willie [facility] 11-10-2022 07:51-0400 SaO2% (BldA) [Mass fraction] 95 % Kevyn Willie [facility] 11-10-2022 02:09-0400 Diastolic blood pressure 72 mm[Hg] Kevyn Willie [facility] 11-10-2022 02:09-0400 Mean blood pressure 84 mm[Hg] Kevyn Willie [facility] 11-10-2022 02:09-0400 Systolic blood pressure 110 mm[Hg] Kevyn Willie [facility] 11-10-2022 02:09-0400 Body temperature 97.88 [degF] Kevny Willie [facility] 11-09-2022 04:00-0400 Blood Pressure Location Kevyn Willie [facility] 11-08-2022 12:34-0400 Blood Pressure Location Kevyn Willie [facility] 11-08-2022 12:34-0400 Heart rate 71 /min Kevyn Willie [facility] 11-08-2022 11:00-0400 Mean blood pressure 86 mm[Hg] Kevyn Willie [facility] 11-08-2022 11:00-0400 Respiratory rate 18 /min Kevyn Willie [facility] 11-08-2022 10:30-0400 Mean blood pressure 79 mm[Hg] Kevyn Tapia [facility] 11-08-2022 10:30-0400 Respiratory rate 19 /min Kevyn Tapia [facility] 11-08-2022 04:50-0400 Body temperature 96.8 [degF] Kevyn Tapia [facility] 11-08-2022 04:50-0400 Heart rate 96 /min Kevynya Tapia [facility] 07-13-2022 09:05-0500 Blood Pressure Location Sharri Che [facility] 07-13-2022 09:05-0500 Body temperature 97.16 [degF] Sharri Diazz [facility] 07-13-2022 09:05-0500 Diastolic blood pressure 66 mm[Hg] Sharri Diazz [facility] 07-13-2022 09:05-0500 Heart rate 87 /min Sharri Che [facility] 07-13-2022 09:05-0500 Systolic blood pressure 101 mm[Hg] Sharri Martinesmetz [facility] 07-08-2022 10:37-0500 Hourly Rounding [facility] 07-08-2022 10:37-0500 Promise to Return [facility] 07-08-2022 09:18-0500 Hourly Rounding Sami [facility] 07-08-2022 09:18-0500 Promise to Return [facility] 07-08-2022 08:51-0500 SaO2% (BldA) [Mass fraction] 90 % [facility] 07-08-2022 08:47-0500 Heart rate 76 /min [facility] 07-08-2022 08:47-0500 Respiratory rate 18 /min [facility] 07-08-2022 08:44-0500 Blood Pressure Location [facility] 07-08-2022 08:44-0500 Body temperature 97.34 [degF] [facility] 07-08-2022 08:44-0500 BP/Pulse Patient Position [facility] 07-08-2022 08:44-0500 Diastolic blood pressure 71 mm[Hg] [facility] 07-08-2022 08:44-0500 Heart rate 66 /min [facility] 07-08-2022 08:44-0500 Mean blood pressure 83 mm[Hg] [facility] 07-08-2022 08:44-0500 SaO2% (BldA) [Mass fraction] 90 % [facility] 07-08-2022 08:44-0500 Systolic blood pressure 108 mm[Hg] [facility] 07-08-2022 08:00-0500 Hourly Rounding [facility] 07-08-2022 08:00-0500 Promise to Return [facility] 07-08-2022 03:29-0500 Heart rate 78 /min [facility] 07-08-2022 03:29-0500 Respiratory rate 18 /min [facility] 07-08-2022 03:29-0500 SaO2% (BldA) [Mass fraction] 94 % [facility] 07-08-2022 03:24-0500 Respiratory rate 18 /min [facility] 07-07-2022 19:30-0500 Body temperature 98.24 [degF] [facility] 07-07-2022 19:30-0500 Diastolic blood pressure 72 mm[Hg] [facility] 07-07-2022 19:30-0500 Mean blood pressure 87 mm[Hg] [facility] 07-07-2022 19:30-0500 Systolic blood pressure 116 mm[Hg] [facility] 07-07-2022 16:12-0500 Body temperature 98.24 [degF] [facility] 07-07-2022 16:12-0500 Diastolic blood pressure 72 mm[Hg] [facility] 07-07-2022 16:12-0500 Mean blood pressure 85 mm[Hg] [facility] 07-07-2022 16:12-0500 Systolic blood pressure 112 mm[Hg] [facility] 07-07-2022 08:48-0500 Blood Pressure Location [facility] 07-07-2022 08:48-0500 BP/Pulse Patient Position [facility] 07-07-2022 00:00-0500 Mean blood pressure 80 mm[Hg] [facility] 07-06-2022 17:00-0500 Blood Pressure Location [facility] 07-06-2022 17:00-0500 BP/Pulse Patient Position [facility] 07-06-2022 17:00-0500 Mean blood pressure 82 mm[Hg] [facility] 07-05-2022 15:50-0500 Heart rate 82 /min [facility] 07-05-2022 14:00-0500 Heart rate 79 /min [facility] 07-05-2022 13:51-0500 Mean blood pressure 85 mm[Hg] [facility] 07-05-2022 01:09-0500 Heart rate 84 /min [facility] 05-25-2022 13:35-0400 Hourly Rounding Kevyn Tapia [facility] 05-25-2022 13:35-0400 Promise to Return Kevyn Willie [facility] 05-25-2022 12:35-0400 Hourly Rounding Kevyn Willie [facility] 05-25-2022 12:35-0400 Promise to Return Kevyn Willie [facility] 05-25-2022 11:21-0400 Blood Pressure Location Kevyn Willie [facility] 05-25-2022 11:21-0400 Body temperature 97.52 [degF] Kevyn Willie [facility] 05-25-2022 11:21-0400 BP/Pulse Patient Position Kevyn Willie [facility] 05-25-2022 11:21-0400 Diastolic blood pressure 71 mm[Hg] Kevyn Willie [facility] 05-25-2022 11:21-0400 Heart rate 67 /min Kevyn Willie [facility] 05-25-2022 11:21-0400 Mean blood pressure 83 mm[Hg] Kevyn Willie [facility] 05-25-2022 11:21-0400 Respiratory rate 17 /min Kevyn Willie [facility] 05-25-2022 11:21-0400 SaO2% (BldA) [Mass fraction] 95 % Kevyn Willie [facility] 05-25-2022 11:21-0400 Systolic blood pressure 105 mm[Hg] Kevyn Willie [facility] 05-25-2022 11:19-0400 Hourly Rounding Kevyn Willie [facility] 05-25-2022 11:19-0400 Promise to Return Kevyn Willie [facility] 05-25-2022 08:24-0400 SaO2% (BldA) [Mass fraction] 92 % Kevyn Willie [facility] 05-25-2022 07:53-0400 60 1 Kartik Pedro MD Work Phone: [facility] DO Work Phone: Comment on above: [id number] 05-25-2022 07:31-0400 Blood Pressure Location Kevyn Richer [facility] 05-25-2022 07:31-0400 BP/Pulse Patient Position Kevyn Richer [facility] 05-25-2022 07:31-0400 Diastolic blood pressure 78 mm[Hg] Kevyn Richer [facility] 05-25-2022 07:31-0400 Heart rate 62 /min Kevyn Richer [facility] 05-25-2022 07:31-0400 Mean blood pressure 91 mm[Hg] Kevyn Willie [facility] 05-25-2022 07:31-0400 SaO2% (BldA) [Mass fraction] 92 % Kevyn Willie [facility] 05-25-2022 07:31-0400 Systolic blood pressure 119 mm[Hg] Kevyn Willie [facility] 05-25-2022 07:00-0400 Body temperature 97.88 [degF] Kevyn Willie [facility] 05-25-2022 03:50-0400 Body temperature 96.44 [degF] Kevyn Willie [facility] 05-25-2022 03:50-0400 Diastolic blood pressure 81 mm[Hg] Kevyn Willie [facility] 05-25-2022 03:50-0400 Heart rate 71 /min Kevyn Willie [facility] 05-25-2022 03:50-0400 Mean blood pressure 94 mm[Hg] Kevyn Willie [facility] 05-25-2022 03:50-0400 Respiratory rate 16 /min Kevyn Willie [facility] 05-25-2022 03:50-0400 Systolic blood pressure 120 mm[Hg] Kevyn Willie [facility] 05-25-2022 00:35-0400 Mean blood pressure 79 mm[Hg] Kevyn Willie [facility] 05-24-2022 19:20-0400 Mean blood pressure 81 mm[Hg] Kevyn Willie [facility] 05-24-2022 16:53-0400 Blood Pressure Location Kevyn Willie [facility] 05-24-2022 16:53-0400 Heart rate 58 /min Kevyn Willie [facility] 05-24-2022 16:08-0400 BP/Pulse Patient Position Kevyn Willie [facility] 05-24-2022 14:36-0400 Mean blood pressure 83 mm[Hg] Kevyn Willie [facility] 05-24-2022 14:36-0400 Respiratory rate 13 /min Kevyn Willie [facility] 05-24-2022 14:00-0400 Respiratory rate 19 /min Kevyn Willie [facility] 05-24-2022 09:26-0400 Heart rate 54 /min Kevyn Willie [facility] 05-24-2022 09:26-0400 Respiratory rate 18 /min Kevyn Tapia [facility] Encounters Encounter Date Encounter Type Care Provider Facility Start: 10-25-2023 End: 10-25-2023 Emergency department patient visit Camille Muniz Facility:[facility] Start: 10-25-2023 End: 10-25-2023 Emergency department patient visit Camille Muniz 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 Franki Rangel III Facility: Start: 01-08-2023 Rx Renewal Franki Augustin rs Work Phone: [facility] 250 DO Work Phone: Start: 11-16-2022 Rx Renewal Franki Augustin rs Work Phone: [facility] 600 DO Work Phone: Start: 11-08-2022 End: 11-10-2022 Evaluation and management of inpatient Festus Bryan Facility:[facility] Start: 11-08-2022 End: 11-10-2022 Evaluation and management of inpatient Kevyn Tapia [facility] Start: 08-17-2022 ambulatory Ami Wood Facility:1 [id number] Start: 08-08-2022 End: 09-21-2022 Pre-admission assessment Farrukh SAEZ [facility] Start: 07-27-2022 ambulatory Ami Wood Facility:1 [id number] Start: 07-13-2022 End: 07-13-2022 Patient encounter procedure Sharri Che [facility] Start: 07-05-2022 End: 07-08-2022 Evaluation and management of inpatient Sami DUMONT [facility] Start: 05-26-2022 Rx Renewal Kartik hairston MD Work Phone: [facility] 600 DO Work Phone: Start: 05-25-[address] Dale De Los Santos Facility: Start: 05-24-[address] Dale De Los Santos Facility: Start: 05-24-2022 End: 05-25-2022 Evaluation and management of inpatient Kevyn Tapia [facility] Start: 05-24-[address] Dale De Los Santos Facility: Start: 03-21-2022 Rx Renewal Kartik hairston MD Work Phone: [facility] 600 DO Work Phone: Start: 09-06-2021 AUDIT Ami Leyva Smi th RAILROADER-JV BASEBALL COACH Work Phone: [facility] DO Work Phone: Start: 01-14-2021 End: 01-14-2021 ambulatory UNKNOWN PROVIDER Facility:[facility] Echocardiogram normal Franki Rangel Work Phone: [facility] 600 DO Work Phone: Procedures Date Procedure Procedure Detail Performing Clinician Start: 05-24-2022 Catheterization of left heart Kevyn guzman Start: 07-18-2021 Catheterization of left heart Kevyn guzman Start: 04-04-2021 Esophagogastroduodenoscopy Kevyn barclay Start: 08-06-2018 Total colonoscopy Ami Wood RAILROADER-JV [employer] Work Phone: Cardiac catheterization Cody Wood RAILROADER-JV [employer]ASEBALL [employer]ACH Work Phone: Catheterization of left heart Kevyn Tapia Comment on above: negative Cholecystectomy Ami Vickers mitkirstin RAILROADER-JV BASEBALL COACH Work Phone: Cholecystectomy Kevyn elkins hernia reapir Kevyn Tapia History of cholecystectomy Cholecystectom y Kevyn Tapia left shoulder/upper arm ORIF Kevyn Tapia Surgical repair of upper extremity Ami Wood RAILROADER-JV [employer]ASEBALL [employer]ACH Work Phone: Plan of Treatment Date Care Activity Detail Author Start: 11-27-2023 End: 11-27-2023 Patient encounter procedure 11/27/2023 1:30 PM EDT Office Visit [facility] [address] [facility] [address] [place] [address] Kartik Biggs DO [address] [facility] [address] [place] [address] [facility] Start: 05-08-2023 End: 05-08-2024 Alanine aminotransferase [Enzymatic activity/volume] in Serum or Plasma by With P-5'-P ALT Lab Routine Coronary artery disease involving [employer] [employer] coronary artery of match[place] heart with other form of angina pectoris (CMS/HCC) Mixed hyperlipidemia Expected: 05/08/2023 (Approximate), Expires: 05/08/2024 [facility] Work Phone: Comment on above: Expected: 05/08/2023 (Approximate), Expires: 05/08/2024 Start: 05-08-2023 End: 05-08-2024 Aspartate aminotransferase [Enzymatic activity/volume] in Serum or Plasma by With P-5'-P AST Lab Routine Coronary artery disease involving [employer] coronary artery of match[place] heart with other form of angina pectoris (CMS/HCC) Mixed hyperlipidemia Expected: 05/08/2023 (Approximate), Expires: 05/08/2024 [facility] Work Phone: Comment on above: Expected: 05/08/2023 (Approximate), Expires: 05/08/2024 Start: 05-08-2023 End: 05-08-2024 Lipid 1996 panel - Serum or Plasma Lipid Panel Lab Routine Coronary artery disease involving [employer] coronary artery of match[employer]e[place] band heart with other form of angina pectoris (CMS/HCC) Mixed hyperlipidemia Expected: 05/08/2023 (Approximate), Expires: 05/08/2024 [facility] Service Area Work Phone: Comment on above: Expected: 05/08/2023 (Approximate), Expires: 05/08/2024 Start: 04-06-2023 Influenza vaccination Influenza Vacc ine (#1) [facility] Start: 02-08-2023 FUV, Provider: Kartik Pedro, Status: Pen, Time: 11:50 AM FUV, Provider: Kartik Pedro, Status: Pen, Time: 11:50 AM [facility] 600 DO Work Phone: Start: 11-15-2022 FUV, Provider: Kartik Pedro, Status: Pen, Time: 9:00 AM FUV, Provider: Kartik Pedro, Status: Pen, Time: 9:00 AM [facility] 600 DO Work Phone: Start: 07-27-2022 FUV, Provider: Ami Encarnacion, Status: Pen, Time: 2:00 PM FUV, Provider: Ami Encarnacion, Status: Pen, Time: 2:00 PM [facility] 600 DO Work Phone: Start: 09-20-2021 FUV, Provider: Kartik Pedro, Status: Pen, Time: 9:00 AM FUV, Provider: Kartik Pedro, Status: Pen, Time: 9:00 AM [facility] 250 DO Work Phone: Start: 09-15-2021 COVID-19 Vaccine (4 - Moderna series) COVID-19 Vaccine (4 - Moderna series) [facility] Start: 09-28-2018 Pneumococcal Vaccine : Pediatrics (0 to 5 Years) and At-Risk Patients (6 to 64 Years) (2 - PCV) Pneumococcal Vaccine: Pediatrics (0 to 5 Years) and At-Risk Patients (6 to 64 Years) (2 - PCV) [facility] Start: 2010 Zoster Vaccines (1 of 2) Zoste r Vaccines (1 of 2) [facility] Start: 1982 DTaP/Tdap/Td Vaccine s (1 - Tdap) DTaP/Tdap/Td Vaccines (1 - Tdap) [facility] Start: 1978 Hepatitis C screening Hepatitis C [facility] Start: 1961 MMR Vaccines (1 of 1 - Standard series) MMR Vaccines (1 of 1 - Standard series) [facility] Start: 1960 HIV screening HIV Screening [facility] Start: 1960 Lipid panel Lipid Panel [facility] Start: 1960 Screening for malign ant neoplasm of colon [facility] Start: 1960 Yearly Adult Physical Yearly Adult P hysical [facility] Immunizations Immunization Date Immunization Notes Care Provider Bhumika bradford 05-18-2022 influenza virus vacc ine, unspecified formulation Sharri Che [facility] 05-18-2022 influenza, injectabl e, quadrivalent, preservative free [facility] Rangel [facility] DO Work Phone: 07-21-2021 Moderna COVID-19 Vac cine 100 MCG/0.5ML Intramuscular Suspension Ami Leyva Wood RAILROADER-JV BASEBALL COACH Work Phone: [facility] 05-09-2021 influenza virus vacc ine, unspecified formulation Sharri Che [facility] 05-09-2021 influenza, injectabl e, quadrivalent, preservative free Ami Leyva Wood RAILROADER-JV BASEBALL COACH Work Phone: [facility] 250 DO Work Phone: 01-17-2021 Moderna COVID-19 Vac cine 100 MCG/0.5ML Intramuscular Suspension Ami Leyva Wood RAILROADER-JV BASEBALL COACH Work Phone: [facility] 12-20-2020 Moderna COVID-19 Vac cine 100 MCG/0.5ML Intramuscular Suspension Ami Leyva Wood RAILROADER-JV [employer]ASEBALL COACH Work Phone: [facility] 07-24-2020 influenza virus vacc ine, unspecified formulation Ami Leyva Wood RAILROADER-JV BASEBALL COACH Work Phone: [facility] 07-24-2020 influenza, seasonal, injectable Ami Wood RAILROADER-JV [employer]ASEBALL COACH Work Phone: [facility] Work Phone: 04-24-2020 influenza virus vacc ine, unspecified formulation Sharri Che [facility] 04-24-2020 influenza, injectabl e, quadrivalent, preservative free Ami Leyva Wood RAILROADER-JV BASEBALL COACH [facility] DO Work Phone: 07-06-2019 influenza virus vacc ine, unspecified formulation Ami Leyva Wood RAILROADER-JV BASEBALL COACH [facility] Work Phone: 05-20-2019 influenza virus vacc ine, unspecified formulation Sharri Che [facility] 05-20-2019 influenza, injectabl e, quadrivalent, preservative free Ami Wood RAILROADER-JV BASEBALL COACH Work Phone: [facility] [employer] DO Work Phone: 05-20-2018 influenza virus vacc ine, unspecified formulation Sharri Che [facility] 05-20-2018 influenza, injectabl e, quadrivalent, preservative free Ami Wood RAILROADER-JV BASEBALL COACH [facility]: [facility] Work Phone: 04-06-2018 influenza virus vacc ine, unspecified formulation Ami Wood RAILROADER-JV BASEBALL COACH [facility] Work Phone: 09-28-2017 pneumococcal polysaccharide vaccine, 23 valent Ami Wood RAILROADER-JV BASEBALL COACH Work Phone: [facility] 09-03-2017 influenza virus vacc ine, unspecified formulation Sharri Che [facility] 09-03-2017 influenza, seasonal, injectable, preservative free Ami Wood RAILROADER-JV BASEBALL COACH Work Phone: [facility] DO Work Phone: 09-03-2017 pneumococcal polysaccharide vaccine, 23 valent Ami Wood RAILROADER-JV BASEBALL COACH Work Phone: [facility] 08-06-2017 pneumococcal polysaccharide vaccine, 23 valent Ami Wood RAILROADER-JV BASEBALL COACH Work Phone: [facility] Work Phone: 01-23-2016 tetanus toxoid, redu matt diphtheria toxoid, and acellular pertussis vaccine, adsorbed Kevyn Willie [facility] 09-06-2009 hepatitis A vaccine, adult dosage Ami Wood RAILROADER-JV BASEBALL COACH Work Phone: [facility] 09-06-2009 hepatitis B vaccine, pediatric or pediatric/adolescent dosage Ami Wood RAILROADER-JV BASEBALL COACH Work Phone: [facility] 12-25-2008 hepatitis B vaccine, pediatric or pediatric/adolescent dosage Ami Wood RAILROADER-JV BASEBALL COACH Work Phone: [facility] 11-25-2008 hepatitis A vaccine, pediatric/adolescent dosage, 2 dose schedule Ami Wood RAILROADER-JV BASEBALL COACH Work Phone: [facility] 250 DO Work Phone: 11-25-2008 hepatitis A vaccine, unspecified formulation Sharri Yane [facility] 11-25-2008 hepatitis B vaccine, pediatric or pediatric/adolescent dosage Ami Wood RAILROADER-JV BASEBALL COACH Work Phone: [facility] Payers Date Payer Category Payer Private Health Insurance [id number] 2022 Private Health Insurance [facility] [id number] 2022-Present [address] [place] [address] [id number] 2020 Medicaid [id number] 1960 Unknown [id number] 1960 Unknown [id number] 356 1960 Unknown [id number] 356 1960 Unknown [id number]. 356 1960 Unknown [id number]. 356 1960 Unknown [id number]. 356 1960 Unknown [id number]. 356 1960 Unknown [id number]. 356 1960 Unknown [id number]. 727 1960 Unknown [id number]. 727 Unknown [facility] Social History Date Type Detail Facility Start: 05-08-2023 No alcohol use No alcohol use -[facility] 250 DO Work Phone: Comment on above: 3-4 cups coffee marlyn y, 1-2 herbal tea weekly; 1-2 cigarettes daily ; 3-4 cigarettes daily ; Tobacco Cigarettes [facility] Comment on above: Pt states 3 per day, trying to cut back Tobacco smoking status No Smokin g Status Entered [facility] Start: 05-08-2023 Sex Assigned At Male F [facility] Start: 07-13-2022 Tobacco smoking status Light t obacco smoker (finding) [facility] Tobacco smoking status Never [facility] Start: 11-08-2022 Tobacco smoking status Heavy t obacco smoker (finding) [facility] Start: 05-08-2023 Tobacco smoking stat us NHIS Smokes tobacco daily [facility] History of tobacco use Cigarette Smoker [facility] Work Phone: Start: 05-08-2023 Tobacco use and exposure Smokeless tobacco non-user [facility] Work Phone: Start: 05-08-2023 Alcohol intake Lifetime non-d mel (finding) [facility] Work Phone: Start: 1960 Sex Assigned At Not on file [facility] Work Phone: Start: 04-28-2023 End: 05-08-2023 Exposure to SARS-CoV-2 (event) Not sure [facility] Functional Status Date Assessment Result Facility 10-25-2023 Functional Status N/A [facility] 11-08-2022 Functional Status N/A [facility] 11-08-2022 Functional Status [facility] 07-13-2022 Functional Status N/A [facility] 07-05-2022 Functional Status No [facility] 07-05-2022 Functional Status [facility] 05-24-2022 Functional Status N/A [facility] 05-24-2022 Functional Status [facility] Clinical Notes 05-25-2022 to 10-25-2023 Note Date & Type Note Facility 10-25-2023 Hospital Discharg e instructions Patient Education 10/25/2023 13:09:37 Chronic Obstructive Pulmonary Disease Chronic Obstructive Pulmonary Disease Chronic obstructive pulmonary disease (COPD) is a long-term (chronic) condition that affects the lungs. COPD is a general term that can be used to describe many different lung problems that cause lung inflammation and limit airflow, including chronic bronchitis and emphysema. If you have COPD, your lung function will probably never return to normal. In most cases, it gets worse over time. However, there are steps you can take to slow the progression of the disease and improve your quality of life. What are the causes? This condition may be caused by: Smoking. This is the most common cause. Certain genes passed down through families. What increases the risk? The following factors may make you more likely to develop this condition: Being exposed to secondhand smoke from cigarettes, pipes, or cigars. Being exposed to chemicals and other irritants, such as fumes and dust in the work environment. Having chronic lung conditions or infections. What are the signs or symptoms? Symptoms of this condition include: Shortness of breath, especially during physical activity. Chronic cough with a large amount of thick mucus. Sometimes, the cough may not have any mucus (dry cough). Wheezing and rapid breathing. Solomon or bluish discoloration (cyanosis) of the skin, especially in the fingers, toes, or lips. Feeling tired (fatigue). Weight loss. Chest tightness. Frequent infections. Episodes when breathing symptoms become much worse (exacerbations). At the later stages of this disease, you may have swelling in the ankles, feet, or legs. How is this diagnosed? This condition is diagnosed based on: Your medical history. A physical exam. You may also have tests, including: Lung (pulmonary) function tests. This may include a spirometry test, which measures your ability to exhale properly. Chest X-ray. CT scan. Blood tests. How is this treated? This condition may be treated with: Medicines. These may include inhaled rescue medicines to treat acute exacerbations as well as medicines that you take long-term (maintenance medicines) to prevent flare-ups of COPD. ?Bronchodilators help treat COPD by dilating the airways to allow increased airflow and make your breathing more comfortable. ?Steroids can reduce airway inflammation and help prevent exacerbations. Smoking cessation. If you smoke, your health care provider may ask you to quit, and may also recommend therapy or replacement products to help you quit. Pulmonary rehabilitation. This may involve working with a team of health care providers and specialists, such as respiratory, occupational, and physical therapists. Exercise and physical activity. These are beneficial for nearly all people with COPD. Nutrition therapy to gain weight, if you are underweight. Oxygen. Supplemental oxygen therapy is only helpful if you have a low oxygen level in your blood (hypoxemia). Lung surgery or transplant. Palliative care. This is to help people with COPD feel comfortable when treatment is no longer working. Follow these instructions at home: Medicines Take viwc-lem-nftmiej and prescription medicines only as told by your health care provider. This includes inhaled medicines and pills. Talk to your health care provider before taking any cough or allergy medicines. You may need to avoid certain medicines that dry out your airways. Lifestyle If you smoke, the most important thing that you can do is to stop smoking. Continuing to smoke will cause the disease to progress faster. Do not use any products that contain nicotine or tobacco. These products include cigarettes, chewing tobacco, and vaping devices, such as e-cigarettes. If you need help quitting, ask your health care provider. Avoid exposure to things that irritate your lungs, such as smoke, chemicals, and fumes. Stay active, but balance activity with periods of rest. Exercise and physical activity will help you maintain your ability to do things you want to do. Learn and use relaxation techniques to manage stress and to control your breathing. Get the right amount of sleep and get quality sleep. Most adults need 7 or more hours per night. Eat healthy foods. Eating smaller, more frequent meals and resting before meals may help you maintain your strength. Controlled breathing Learn and use controlled breathing techniques as directed by your health care provider. Controlled breathing techniques include: Pursed lip breathing. Start by breathing in (inhaling) through your nose for 1 second. Then, purse your lips as if you were going to whistle and breathe out (exhale) through the pursed lips for 2 seconds. Diaphragmatic breathing. Start by putting one hand on your abdomen just above your waist. Inhale slowly through your nose. The hand on your abdomen should move out. Then purse your lips and exhale slowly. You should be able to feel the hand on your abdomen moving in as you exhale. Controlled coughing Learn and use controlled coughing to clear mucus from your lungs. Controlled coughing is a series of short, progressive coughs. The steps of controlled coughing are: 1.Lean your head slightly forward. 2.Breathe in deeply using diaphragmatic breathing. 3.Try to hold your breath for 3 seconds. 4.Keep your mouth slightly open while coughing twice. 5.Spit any mucus out into a tissue. 6.Rest and repeat the steps once or twice as needed. General instructions Make sure you receive all the vaccines that your health care provider recommends, especially the pneumococcal and influenza vaccines. Preventing infection and hospitalization is very important when you have COPD. Drink enough fluid to keep your urine pale yellow, unless you have a medical condition that requires fluid restriction. Use oxygen therapy and pulmonary rehabilitation if told by your health care provider. If you require home oxygen therapy, ask your health care provider whether you should purchase a pulse oximeter to measure your oxygen level at home. Work with your health care provider to develop a COPD action plan. This will help you know what steps to take if your condition gets worse. Keep other chronic health conditions under control as told by your health care provider. Avoid extreme temperature and humidity changes. Avoid contact with people who have an illness that spreads from person to person (is contagious), such as viral infections or pneumonia. Keep all follow-up visits. This is important. Contact a health care provider if: You are coughing up more mucus than usual. There is a change in the color or thickness of your mucus. Your breathing is more labored than usual. Your breathing is faster than usual. You have difficulty sleeping. You need to use your rescue medicines or inhalers more often than expected. You have trouble doing routine activities such as getting dressed or walking around the house. Get help right away if: You have shortness of breath while you are resting. You have shortness of breath that prevents you from: ?Being able to talk. ?Performing your usual physical activities. You have chest pain lasting longer than 5 minutes. Your skin color is more blue (cyanotic) than usual. You measure low oxygen saturations for longer than 5 minutes with a pulse oximeter. You have a fever. You feel too tired to breathe normally. These symptoms may represent a serious problem that is an emergency. Do not wait to see if the symptoms will go away. Get medical help right away. Call your local emergency services (911 in the [place] Do not drive yourself to the hospital. Summary Chronic obstructive pulmonary disease (COPD) is a long-term (chronic) condition that affects the lungs. Your lung function will probably never return to normal. In most cases, it gets worse over time. However, there are steps you can take to slow the progression of the disease and improve your quality of life. Treatment for COPD may include taking medicines, quitting smoking, pulmonary rehabilitation, and changes to diet and exercise. As the disease progresses, you may need oxygen therapy, a lung transplant, or palliative care. To help manage your condition, do not smoke, avoid exposure to things that irritate your lungs, stay up to date on all vaccines, and follow your health care provider's instructions for taking medicines. This information is not intended to replace advice given to you by your health care provider. Make sure you discuss any questions you have with your health care provider. Document Revised: 05/31/2021 Document Reviewed: 05/31/2021 [employer] Patient Education 2022 [employer]. Follow Up Care 10/25/2023 00:12:13 With:Franki Rangel Address: [address] [place], [place] [address] [address] Business (1) When:10/28/2023 13:08:56 Comments:Call the office of your primary care doctor to arrange for follow-up within the above-stated timeframe. Follow-up with your primary care doctor about this ED visit. You should review your labs, imaging, and diagnoses from this ED visit with your primary care physician. There are occasionally non-emergent findings that require additional follow-up after your ED visit. If you were prescribed medications you should discuss possible side-effects and drug interactions with your pharmacist. Call 911 or go to the nearest Emergency Department if you develop any new or worsening symptoms.Seek immediate medical attention if you develop: worsening shortness of breath, difficulty breathing, chest pain, nausea, vomiting, weakness, numbness, tingling, excessive sweating, loss of motion in your arms or legs, or any new or worsening symptoms. [facility] 10-25-2023 Evaluation + Plan note Extrac durga from: Title:ED Note Author:Camille Muniz DO Date :10/25/23 Chest pain (R07.9: Chest jany n, unspecified) COPD exacerbation (J44.1: Chronic obstructive pulmonary disease with (acute) exacerbation) Orders: albuterol-ipratropium, 6 mL, Soln-Inh, Inhalation, Once, Stop date 10/25/23 0:36:00 EDT, STAT, Start date 10/25/23 0:36:00 EDT methylPREDNISolone, 125 mg = 2 mL, Injection, IV Push, Once, Stop date 10/25/23 0:36:00 EDT, STAT, Start date 10/25/23 0:36:00 EDT, 10/25/23 0:36:00 EDT Sodium Chloride 0.9% intravenous solution, 1,000 mL, Soln-IV, IV, Once, Stop date 10/25/23 0:36:00 EDT, STAT, Start date 10/25/23 0:36:00 EDT, Infuse over 61, minute(s) B-Type Natriuretic Peptide Basic Metabolic Panel Blood Gas Art, with Lytes, Gluc, Lact CBC w/ Auto Diff Consult to [employer] Administrator Continuous Pulse Oximetry ECG 12 Lead Adult ED Cardiac Monitoring eGFR Oxygen Therapy PT & PTT Saline Lock Insert Troponin 0 Hr. Troponin 3 Hr. Troponin 6 Hr. Troponin 9 Hr. XR Chest Single View Addendum by David Abarca DO on October 25, 2023 13:09:44 EDT Social work saw the patient. Awaiting confirmation of heat at his residence and he will be discharged. Nursing staff did call and discussed with his roommate. They have a heater running. Landlord will come for gas repair and turn gas back on this evening. Patient was discharged home per Dr. Muniz's plan. David Abarca DO, REEMA [facility]10-03-2023 Evaluation + Plan note* Assessment & Plan Note - JEREL Haines - 05/08/2023 2:49 PM EDTAssociated Problem(s): Current every day smoker Has significantly reduced to approximately 3 cigarettes daily Continued every day tobacco use. Have reviewed the negative cardiovascular impact of nicotine. Continues to decline pharmacological assistance. [facility] Work Phone: 1(683) 377-692010-03-2023 Miscellaneous Notes* Assessment & Plan Note - JEREL Haines - 05/08/2023 2:49 PM EDTAssociated Problem(s): Current every day smoker Has significantly reduced to approximately 3 cigarettes daily Continued every day tobacco use. Have reviewed the negative cardiovascular impact of nicotine. Continues to decline pharmacological assistance. * Assessment & Plan Note - JEREL Haines - 05/08/2023 2:48 PM EDT Associated Problem(s): Hypotension Asymptomatic * Assessment & Plan Note - JEREL Haines - 05/08/2023 2:48 PM EDT Associated Problem(s): Hyperlipidemia Tolerating moderate intensity statin Due for lipid profile * Assessment & Plan Note - JEREL Haines - 05/08/2023 2:48 PM EDT Associated Problem(s): Dyspnea on exertion Functional class II related to COPD Follows routinely with pulmonary Denies increased use of rescue inhaler * Assessment & Plan Note - JEREL Haines - 05/08/2023 2:48 PM EDT Associated Problem(s): Mild CAD May 2022 cardiac cath mLAD myocardial bridging oRamus 30% * Assessment & Plan Note - JEREL Haines - 05/08/2023 2:47 PM EDT Associated Problem(s): Prinzmetal's angina (CMS/HCC) Remains quiescent on isosorbide and ranolazine Daily activity 4 METS [facility] Work Phone: 1(875) 654-287610-03-2023 Evaluation + Plan note* Assessment & Plan Note - JEREL Haines - 05/08/2023 2:48 PM EDTAssociated Problem(s): Hypotension Asymptomatic [facility] Work Phone: [phone]) 780-831410-03-2023 Evaluation + Plan note* Assessment & Plan Note - JEREL Haines - 05/08/2023 2:48 PM EDTAssociated Problem(s): Hyperlipidemia Tolerating moderate intensity statin Due for lipid profile [facility] Work Phone: [phone] 132-608910-03-2023 Evaluation + Plan note* Assessment & Plan Note - JEREL Haines - 05/08/2023 2:48 PM EDTAssociated Problem(s): Dyspnea on exertion Functional class II related to COPD Follows routinely with pulmonary Denies increased use of rescue inhaler [facility] Work Phone: [phone] 353-290810-03-2023 Evaluation + Plan note* Assessment & Plan Note - JEREL Haines - 05/08/2023 2:48 PM EDTAssociated Problem(s): Mild CAD May 2022 cardiac cath mLAD myocardial bridging oRamus 30% [facility] Work Phone: [phone]) 492-117110-03-2023 Evaluation + Plan note* Assessment & Plan Note - JEREL Haines - 05/08/2023 2:47 PM EDTAssociated Problem(s): Prinzmetal's angina ([facility]/HCC) Remains quiescent on isosorbide and ranolazine Daily activity 4 METS [facility] Work Phone: [phone]) 805-531210-03-2023 History of Present illness Narrative* JEREL Haines - 05/08/2023 12:30 PM EDT Patient presents to the office today for outpatient follow-up for mild CAD, secondary prevention and prinzmetal angina Last evaluated in clinic by myself Aug 2022 Presents today ambulatory with steady gait. November 2022 hospitalized at [facility] d/t COPD. No Cardiology follow-up. Follows with PCP and Pulmonary. Patient presents the office today for reports doing just fine . His activity is mostly limited dueto COPD but he reports doing much better with the cooler weather . He has been under increased social stress due to recent eviction from his home. He tries to walk on a daily basis and cares for hiscats. He completes ADLs and light housework. He denies any exertional chest pain. He reports being out of Ranexa for approximately 1 week without symptoms. Reviewed the importance of secondary prevention. He is due for lipid profile Discussed importance of smoking cessation Overall patient is pleased with current state of cardiovascular health. At this time there are no indications for additional cardiovascular testing or need for medication changes. Review of Systems Cardiovascular: Negative for chest pain, dyspnea on exertion, irregular heartbeat, leg swelling, near-syncope, orthopnea, palpitations, paroxysmal nocturnal dyspnea and syncope. Physical Exam Vitals and nursing note reviewed. Constitutional: Appearance: Normal appearance. Cardiovascular: Rate and Rhythm: Normal rate and regular rhythm. Heart sounds: Normal heart sounds. Pulmonary: Effort: Pulmonary effort is normal. Breath sounds: Normal breath sounds. Musculoskeletal: Cervical back: Full passive range of motion without pain. Right lower leg: No edema. Left lower leg: No edema. Skin: General: Skin is cool. Neurological: Mental Status: He is alert and oriented to person, place, and time. Psychiatric: Attention and Perception: Attention normal. Mood and Affect: Mood normal. Behavior: Behavior is cooperative. Prinzmetal's angina (CMS/HCC) Remains quiescent on isosorbide and ranolazine Daily activity 4 METS Mild CAD May 2022 cardiac cath mLAD myocardial bridging oRamus 30% Dyspnea on exertion Functional class II related to COPD Follows routinely with pulmonary Denies increased use of rescue inhaler Hyperlipidemia Tolerating moderate intensity statin Due for lipid profile Hypotension Asymptomatic Current every day smoker Has significantly reduced to approximately 3 cigarettes daily Continued every day tobacco use. Have reviewed the negative cardiovascular impact of nicotine. Continues to decline pharmacological assistance. PLAN: Through informed decision making process incorporating patients unique circumstances, the followingtreatment plan will be initiated: Lipids/ast/alt 2. Dr. Biggs 6 months 3. Discussed the dynamic nature of coronary artery disease and the importance of seeking medical attention if new symptoms arise. Ami Wood MSN, RAILROADER-JV BASEBALL COACH, PMHNP-BC [facility] Please excuse any errors in grammar or translation related to this dictation. Voice recognition software was utilized to prepare this document. documented in this encounterAden[facility] Work Phone: [phone]) [phone] Instructions* Patient Instructions* JEREL Haines - 05/08/2023 12:30 PM EDT PLAN: Through informed decision making process incorporating patients unique circumstances, the followingtreatment plan will be initiated: 1. Prescription drug management of cardiovascular medication for efficacy, adherence to treatment, side effect assessment and polypharmacy. Current treatment clinically warranted and to continue without modifications. 2. Lipids/AST/ALT 3. Return for follow-up; in the interim, contact the office if new symptoms arise. Dr. Biggs 6 months documented in this encounterA[facility] Work Phone: 1(802) 309-905104-13-2023 NoteMicrobiology PROCEDURE: Blood Culture Charcoal [R1] SOURCE: Blood BODY SITE: Arm R COLLECTED DATE/TIME: 11/09/2022 08:03 EDT RECEIVED DATE/TIME: 11/09/2022 09:15 EDT START DATE/TIME: 11/09/2022 09:15 EDT FREE TEXT SOURCE: KATERIN BLANKENSHIP-CHAYITO, Shaunna ROJAS-CHAYITO, Shaunna FINAL REPORTS Final Report [] Verified Date/Time: 11/16/2022 15:24 EDT No growth at 7 days. Performing Locations R1: This test was performed at: [facility], [address] [place] [address], [facility] , , QswhnhLutheran HospitalComment on above:Performed By: #### [id number] ####[facility] [address] [place], [place] [id number] NoteMicrobiology PROCEDURE: Blood Culture Charcoal [R1] SOURCE: Blood BODY SITE: Arm L COLLECTED DATE/TIME: 11/09/2022 08:08 EDT RECEIVED DATE/TIME: 11/09/2022 09:15 EDT START DATE/TIME: 11/09/2022 09:15 EDT FREE TEXT SOURCE: KATERIN [facility], Shaunna CONKLIN [facility], Shaunna FINAL REPORTS Final Report [] Verified Date/Time: 11/16/2022 15:23 EDT No growth at 7 days. Performing Locations R1: This test was performed at: [facility], [address] [place] [address], [address] [place] [address], LhhljrLutheran HospitalComment on above:Performed By: #### [id number] ####[place] [id number] [place], [place] [id number] NoteAdmission and Discharge Information Admit Date/Time:11/08/2022 11:43 Admitting Physician - Willie VICK, Kevyn Vickers Consulting Physician - Festus Bryan Jr., PA-C Admitting Diagnoses: Discharge Diagnoses 1. Acute exacerbation of chronic obstructive pulmonary disease (COPD), 11/08/2022 2. Nicotine abuse, 11/08/2022 3. Anemia, 11/09/2022 4. CAD (coronary artery disease), 11/08/2022 5. HTN (hypertension), 11/09/2022 6. HLD (hyperlipidemia), 11/09/2022 7. Chronic GERD, 11/08/2022 8. Depression, 11/08/2022 9. On deep vein thrombosis (DVT) prophylaxis, 11/09/2022 Please refer to my progress note for in-depth information regarding each individual diagnosis Procedure History Cardiac catheterization, left heart (05/24/2022), Cardiac catheterization, left heart (07/18/2021),EGD - Esophagogastroduodenoscopy (04/04/2021), Catheterization of left heart, Cholecystectomy, hernia reapir, left shoulder/upper arm ORIF. Hospital Course 61-year-old male with PMH of chronic hypoxic resp. failure, COPD, current chronic tobaccouse, chronic anemia, CAD, HTN, HLD, GERD, depression. -Patient presented to the ED secondary to SOB/DE [place] CRU[place]. -Patient was treated for acute on chronic respiratory failure 2/2 AECOPD in the setting of current chronic tobacco use with known chronic lung disease, patient was provided IV azithromycin, IV Solu-Medrol. Patient will continue 5 days of azithromycin and a tapering prednisone pack. He was instructed to not resume smoking, to follow-up with his PCP and pulmonology. -Sputum culture sent which was unsatisfactory for culture, patient to provide additional sample. Results to PCP office. -Blood cultures obtained results to PCP office, patient has improved significantly since time of admission, he has had no fever, chills or declining complaints. -Anemia panel reviewed, no indication for iron therapy. -Patient is at his baseline 4 L NC -originally was documented that patient wears 3 L however he clarified use this morning. -I spoke with patient regarding his CAD and lack of aspirin use, patient states that he has not been taking it because he cannot afford it, he states that his insurance will cover it if I provided prescription and therefore prescription sent. -Patient states that all admitting symptoms have significantly improved and/or resolved. Patient iseating and drinking without complaints, denies being SOB, chest pain, pressure, palpitations or difficulty with voiding. Patient is eager to be discharged to home. --Other chronic medical conditions as outlined in note. Refer to d/c plan below: -Case reviewed and discussed with Dr. Tapia who is in agreement with current d/c plan. Case will bereviewed and discussed with PCP or rn clinical documentation MD once the hospital electric cutter operator is able to reach him/her. I spent a lengthy amount of time with the patient and/or family reviewing discharge instructions, medications, medication use. Patient to follow-up with PCP and specialty providers as scheduled on discharge. Patient being discharged in medically/hemodynamically stable cond. with instructions to return to the hospital if symptoms worsen or recur. This report was transcribed using voice recognition software. Every effort was made to ensure accuracy, however, inadvertently computerized shot man mistakes may be present. Significant Findings No qualifying data available. Services Consulted Consult to Pulmonology - Ordered -- 11/09/22 7:53:00 EDT, A/C resp. failure, AECOPD., Consult and Co-manage Physical Exam Vitals & Measurements T: 36.6 ?C(Oral) TMIN: 36.4 ?C(Oral) TMAX: 36.9 ?C(Oral) HR: 68(Monitored) RR: 20 BP: 111/69 SpO2: 95% WT: 87.7 kg General: Calm, able to communicate needs, Head: Normocephalic/atraumatic Eyes: Pupils equal, round, Conjunctivae and sclerae normal, HEENT: Mucous membrane moist. Tongue normal Neck: Trachea midline, neck supple, Chest: No chest wall deformity, no chest wall tenderness Lungs: Scattered exp. wheezing, harsh prod. cough of thick yellow sputum, Cardio: Normal rate, currently in RSR, no edema. Pulses: Normal capillary refill Abdomen: Soft, non-distended, non-tender, normal BS Musculoskeletal: No deformity or scoliosis noted. Integumentary: Warm, dry, Extremity: No clubbing, Neurologic: Alert, oriented x 4, follows commands, Mental status: Pleasant & cooperative, approp. affect, Laboratory Results Automated Diff (11/09/2022) Neutro Auto - 88.2 % Lymph Auto - 7.1 % [place] Auto - 4.4 % Eos Auto - 0.0 % Basophil Auto - 0.3 % Neutro Absolute - 15.2 E9/L Lymph Absolute - 1.2 E9/L [place] Absolute - 0.8 E9/L Eos Absolute - 0.0 E9/L Basophil Absolute - 0.1 E9/L B12 Level (11/09/2022) Vitamin B12 Lvl - 270 pg/mL BMP (11/10/2022) Glucose Lvl - 153 mg/dL BUN - 16 mg/dL Creatinine - 0.9 mg/dL BUN/Creat Ratio - 18 Sodium Lvl - 136 mmol/L Potassium Lvl - 4.4 mmol/L Chloride - 103 mmol/L CO2 - 26 mmol/L AGAP - 11 mEq/L Calcium Lvl (more content not included)...[facility] HospitalComment on above:Result Comment: Electronically Signed By: Elizabeth PATRICK\.br\Date and Time Signed: 11/14/22 14:09 EDT\.br\Electronically Co- Signed By: Willie VICK, Kevyn Vickers\.br\Date and Time Co-Signed: 11/21/22 09:33 EDT 11-10-2022 Evaluation + Plan noteExtracted from: Title:APSO Note Author:Susy REGAN Diane CrowleyAlejandro Date:11/10/22 1. Acute exacerbation of chr onic obstructive pulmonary disease (COPD) (J44.1: Chronic obstructive pulmonary disease with (acute) exacerbation) AECOPD H/o severe COPD (last PFTs 09/25, FEV1 28%) on 4L NC at baseline Active smoker Home regimen: Trilogy, Albuterol Plan: - Currently on 4L NC, this is his baseline - Titrate O2 for sats 89-94% - Continue bronchodilators - Continue solumedrol 40mg q8h - RVP neg, sputum cx NGTD, procal neg - Continue empiric azithromycin - Encourage IS and OOB - Encourage smoking cessation - Ok from pulmonary standpoint for d/c. Please taper his steroids over 10 days. Have follow up in office 2-3 weeks. 2. Nicotine abuse (Z72.0: Tobacco use) 3. Anemia (D64.9: Anemia, unspecified) 4. CAD (coronary artery disease) (I25.10: Atherosclerotic heart disease of [place] coronary artery without angina pectoris) 5. HTN (hypertension) (I10: Essential (primary) hypertension) 6. HLD (hyperlipidemia) (E78.5: Hyperlipidemia, unspecified) 7. Chronic GERD (K21.9: Gastro-esophageal reflux disease without esophagitis) 8. Depression (F32.A: Depression, unspecified) 9. 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) Acute on chronic respiratory failure (J96.20: Acute and chronic respiratory failure, unspecified whether with hypoxia or hypercapnia) Extracted from: Title:Discharge Note Author:Angela ODEN Date:11/10/22 Hemodynamically stable condi tion Discharge To, Anticipated II - Home with responsible caregiver Discharged to - Home independently Discharge Status: Improved Discharge Instructions Given: To patient Discharge disposition: Home Prescriptions reviewed with Patient 48 minutes spent in discharge time with patient, collaborating MD, nursing staff, CRM, Discharge Diet(s): Regular, Fat Modified- Low cholesterol, Low Sodium- 2000 mg (11/10/22 10:29:00) Prescriptions aspirin 81 mg Oral EC Tab, 81 mg= 1 tab(s), Oral, Daily azithromycin 500 mg oral tablet, 500 mg= 1 tab(s), Oral, Daily isosorbide mononitrate 30 mg ER Tab, 30 mg= 1 tab(s), Oral, Daily Mucinex 600 mg Tab-ER, 600 mg= 1 tab(s), Oral, BID Nicotine System Kit transdermal film, extended release, 1 EA, TransDermal, Daily Pantoprazole [address] Tab, 40 mg= 1 tab(s), Oral, Daily predniSONE 10 mg Tab, 1 -, Oral, As Directed ranolazine 500 mg oral ER Tab, 500 mg= 1 tab(s), Oral, BID Home acetaminophen 325 mg Tab, 650 mg= 2 tab(s), Oral, q6hr, PRN atorvastatin 20 mg Tab, 20 mg= 1 tab(s), Oral, Daily DuoNeb 2.5 mg-0.5 mg/3 mL Soln-Inh, 3 mL, Inhalation, QID, PRN escitalopram 10 mg Tab, 10 mg= 1 tab(s), Oral, Daily Nitro 0.4 mg Tab, 1 tab(s), SubLingual, q5min, PRN Trelegy Ellipta inhalation powder, 1 puff(s), Inhalation, Daily Ventolin HFA 90 mcg/inh Aerosol, 2 puff(s), Inhalation, q4hr, PRN With When Contact Information Franki Rangel 11/17/2022 11:00 AM EDT [address] [facility] [address], [place] [address]- Business (1) Additional Instructions: Kerrie Martins Within 5 to 7 days [address] [place] [address]- [phone] Business (1) Additional Instructions: DASH Eating Plan Chronic Obstructive Pulmonary Disease Exacerbation, Rxkg-dc-Avdi Acute Respiratory Failure, Adult Extracted from: Title:Consult Note Author:Festus Bryan Jr., PA-C Date:11/09/22 1. Acute exacerbation of chr onic obstructive pulmonary disease (COPD) (J44.1: Chronic obstructive pulmonary disease with (acute) exacerbation) AECOPD H/o severe COPD (last PFTs 09/25, FEV1 28%) on 4L NC at baseline Active smoker Home regimen: Trilogy, Albuterol Plan: - Currently on 4L NC - Titrate O2 for sats 89-94% - Continue bronchodilators - Continue solumedrol 40mg q8h - RVP neg, sputum cx NGTD, procal neg - Continue empiric azithromycin - Encourage IS and OOB - Encourage smoking cessation 9. On deep vein thrombosis (DVT) prophylaxis (Z79.899: Other care home (current) drug therapy) Heparin sq Orders: methylPREDNISolone, 40 mg = 1 mL, Injection, IV Push, q8hrFT, Routine, Start date 11/09/22 16:00:00 EDT Extracted from: Title:APSO Note Author:Shaunna ODEN ate:11/09/22 1. Acute on chronic respirat ory failure (J96.20: Acute and chronic respiratory failure, unspecified whether with hypoxia or hypercapnia) 2/2 AECOPD, pulm fibrosis (follows Dr. Glenn Goldberg) -Home 02 3Lpm NC 26/02 -Supplemental 02 -Consult pulm - increase steroids to q8 -See below 2. Acute exacerbation of chronic obstructive pulmonary disease (COPD) (J44.1: Chronic obstructive pulmonary disease with (acute) exacerbation) Home tx: Trelegy/albuterol -CXR: Chronic lung dx., no acute process -Procal - pending -Resp. panel - pending -IV azithromycin - 11/06 -Med nebs, flutter, mucinex, supplemental 02 -11/09: Increase IV solumedrol 40mg q8hrs - taper as ruiz. -Sputum cx. - pending -Bl. cx. - pending 3. Nicotine abuse (Z72.0: Tobacco use) Hx. of 3ppd = 120 pack years 4. Anemia (D64.9: Anemia, unspecified) Baseline hgb. level - 14.0 -Anemia panel - pending -No acute bleeding noted, hemodynamically stable -Trend labs 5. CAD (coronary artery disease) (I25.10: Atherosclerotic heart disease of [place] coronary artery without angina pectoris) 2020: C: mod. CAD, no intervention -Atorvastatin, imdur, ranolazine, -? asa -F/U w/ [facility] 6. HTN (hypertension) (I10: Essential (primary) hypertension) -Imdur, ranolazine 7. HLD (hyperlipidemia) (E78.5: Hyperlipidemia, unspecified) -Atorvastatin 8. Chronic GERD (K21.9: Gastro-esophageal reflux disease without esophagitis) -PPI 9. Depression (F32.A: Depression, unspecified) -Escitalopram 10. On deep vein thrombosis (DVT) prophylaxis (Z79.899: Other care home (current) drug therapy) -Heparin sq with early ambulation Orders: guaifenesin, 1,200 mg = 2 tab(s), Tab-ER, Oral, BID, Routine, Start date 11/09/22 9:00:00 EDT, 11/09/22 7:44:00 EDT pantoprazole, 40 mg = 1 tab(s), Tab-DR, Oral, Daily, Routine, Start date 11/09/22 9:00:00 EDT, 11/09/22 7:49:00 EDT ranolazine, 500 mg = 1 tab(s), Tab-ER, Oral, BID, Routine, Start date 11/09/22 9:00:00 EDT, 11/09/22 7:48:00 EDT Blood Culture Charcoal Blood Culture Charcoal Consult to Pulmonology Ferritin Flutter Valve Folate Level Iron Level Lactate Dehydrogenase Physical Therapy Evaluate Patient, Develop a Plan of Care and Implement Plan Procalcitonin Respiratory Panel by PCR Reticulocyte Count TIBC Calculated Vitamin B12 Level -Plan discussed w/ patient, nursing staff and CRM. This report was transcribed using voice recognition software. Every effort was made to ensure accuracy, however, inadvertently computerized shot man mistakes may be present. Extracted from: Title:Admission H & P Author:Otto PATRICK Date:11/08/22 PLAN: 1. Acute on chronic respiratory failure (J96.20: Acute and chronic respiratory failure, unspecified whether with hypoxia or hypercapnia) With hypoxemia Chronically on 3 L of oxygen at home but has required 4 L prior to and since admission. Med nebs, flutter, I-S, Mucinex Methylprednisolone IV Blood, sputum cultures pending Pulm oxygen Consider pulm consult if worsens 2. Acute exacerbation of chronic obstructive pulmonary disease (COPD) (J44.1: Chronic obstructive pulmonary disease with (acute) exacerbation) 2/2 acute exacerbation COPD d/t acute /chronic bronchitis. hx pulmonary fibrosis. Trelegy Azithromycin IV See #[address] 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 CAD (coronary artery disease) (I25.10: Atherosclerotic heart disease of [place] coronary artery without angina pectoris) Statin, Imdur 4. Chronic GERD (K21.9: Gastro-esophageal reflux disease without esophagitis) PPI 5. Depression (F32.A: Depression, unspecified) Escitalopram 6. 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 States he has smoked cigarettes 3ppd since age 21 = 120 pack years DVT Prophylaxis: Disposition: Inpt status will require >2 midnight stays for further work up and treatment of above. Orders: acetaminophen, 650 mg = 2 tab(s), Tab, Oral, q6hr PRN Pain, Routine, Start date 11/08/22 11:43:00 EDT, 11/08/22 11:43:00 EDT Al hydroxide/Mg hydroxide/simethicone, 30 mL, Susp-Oral, Oral, q6hr PRN Indigestion, Routine, Start date 11/08/22 11:43:00 EDT albuterol, 2.5 mg, 3 mL, Soln-Inh, Inhalation, q2hr PRN Shortness of breath or wheezing, Routine, Start date 11/08/22 11:44:00 EDT albuterol-ipratropium, 3 mL, Soln-Inh, Inhalation, QID, Routine, Start date 11/08/22 12:00:00 EDT azithromycin + Sodium Chloride 0.9% intravenous solution 250 mL, 500 mg = 1 EA, IV Piggyback, Daily, NOW, Start date 11/08/22 11:42:00 EDT, 250 mL/hr, Infuse over 60 minute(s), 11/08/22 11:42:00 EDT heparin, 5,000 unit(s) = 1 mL, Injection, SubCutaneous, BID for 30 day(s), Stop date 12/08/22 20:59:00 EDT, Routine, Start date 11/08/22 21:00:00 EDT, 11/08/22 11:43:00 EDT hydrALAZINE, 10 mg = 0.5 mL, Injection, IV Push, q6hr PRN Other (see comment), Routine, Start date 11/08/22 11:43:00 EDT, 11/08/22 11:43:00 EDT methylPREDNISolone, 40 mg = 1 mL, Injection, IV Push, q12hr, Routine, Start date 11/08/22 12:00:00 EDT, 11/08/22 11:44:00 EDT nicotine, 21 mg, 1 patch(es), Patch-ER, TransDermal, Daily, Routine, Start date 11/09/22 9:00:00 EDT ondansetron, 4 mg = 2 mL, Injection, IV Push, q6hr PRN Nausea, Routine, Start date 11/08/22 11:43:00 EDT, 11/08/22 11:43:00 EDT Ambulate with Assistance Cardiac Monitoring Drug Screen Urine Evaluate Need For Continued Telemetry Incentive Spirometry Intake and Output Notify Provider Vital Signs Notify Provider Vital Signs Oxygen Protocol Precautions Pulse Oximetry Regular Diet Respiratory Protocol Resuscitation Status - Full UA With Cult Reflex Vital Signs Weight Extracted from: Title:ED Note Author:Farzad Castro DO Date :11/08/22 COPD exacerbation (J44.1: Ch ronic obstructive pulmonary disease with (acute) exacerbation) Orders: albuterol, 2.5 mg, 3 mL, Soln-Inh, Inhalation, Once, Stop date 11/08/22 4:53:00 EDT, STAT, Start date 11/08/22 4:53:00 EDT albuterol-ipratropium, 3 mL, Soln-Inh, Inhalation, Once, Stop date 11/08/22 4:53:00 EDT, STAT, Start date 11/08/22 4:53:00 EDT aspirin, 325 mg = 1 tab(s), Tab-EC, Oral, Once, Stop date 11/08/22 5:57:00 EDT, STAT, Start date 11/08/22 5:57:00 EDT, 11/08/22 5:57:00 EDT magnesium sulfate + Generic Diluent 50 mL, 2 gram = 50 mL, IV Piggyback, Once, Stop date 11/08/22 4:53:00 EDT, STAT, Start date 11/08/22 4:53:00 EDT, 166.67 mL/hr, Infuse over 0.3 hour(s), 11/08/22 4:53:00 EDT Automated Diff B-Type Natriuretic Peptide Basic Metabolic Panel CBC w/ Auto Diff Continuous Pulse Oximetry ED Cardiac Monitoring ED Cardiac Monitoring eGFR Oxygen Saturation Oxygen Therapy PT & PTT Rapid COVID Antigen ([facility] [place]) Saline Lock Insert Saline Lock Insert Troponin 0 Hr. XR Chest Single View Addendum by David Abarca DO on November 08, 2022 08:16:31 EDT Case was signed out to me with admission discussion with hospitalist service pending. I did talk to Dr. Tapia via telephone. He agrees accept the patient for further treatment of COPD exacerbation. David Abarca DO, REEMA Future Appointments Appointment Date:11/15/2022 09:45:00 AM Scheduled Provider:Kerrie Martins MD Location:[facility] Appointment Type:Pulmonary Follow Up ([facility]) Future Scheduled Tests Laboratory* CBC w/ Auto Diff 07/13/22 * Comprehensive Metabolic Panel 07/13/22 [facility]04-07-2023 Hospital Discharge instructions Patient Education 11/10/2022 10:32:18 DASH Eating Plan DASH Eating Plan DASH stands for Dietary Approaches to Stop Hypertension. The DASH eating plan is a healthy eatingplan that has been shown to reduce high blood pressure (hypertension). It may also reduce your riskfor type 2 diabetes, heart disease, and stroke. The DASH eating plan may also help with weight loss. What are tips for following this plan? General guidelines Avoid eating more than 2,300 mg (milligrams) of salt (sodium) a day. If you have hypertension, you may need to reduce your sodium intake to 1,500 mg a day. Limit alcohol intake to no more than 1 drink a day for non women and 2 drinks a day for men. One drink equals 12 oz of beer, 5 oz of wine, or 1 oz of hard liquor. Work with your health care provider to maintain a healthy body weight or to lose weight. Ask what an ideal weight is for you. Get at least 30 minutes of exercise that causes your heart to beat faster (aerobic exercise) most days of the week. Activities may include walking, swimming, or biking. Work with your health care provider or diet and motor tune up specialist (dietitian) to adjust your eating plan to your individual calorie needs. Reading food labels Check food labels for the amount of sodium per serving. Choose foods with less than 5 percent of the Daily Value of sodium. Generally, foods with less than 300 mg of sodium per serving fit into this eating plan. To find whole grains, look for the word whole as the first word in the ingredient list. Shopping Buy products labeled as low-sodium or no salt added. Buy fresh foods. Avoid canned foods and premade or frozen meals. Cooking Avoid adding salt when cooking. Use salt-free seasonings or herbs instead of table salt or sea salt. Check with your health care provider or pharmacist before using salt substitutes. Do not carbajal foods. Cook foods using healthy methods such as baking, boiling, grilling, and broiling instead. Cook with heart-healthy oils, such as olive, canola, soybean, or sunflower oil. Meal planning Eat a balanced diet that includes: ?5 or more servings of fruits and vegetables each day. At each meal, try to fill half of your platewith fruits and vegetables. ?Up to 6 8 servings of whole grains each day. ?Less than 6 oz of lean meat, poultry, or fish each day. A 3-oz serving of meat is about the same size as a deck of cards. One egg equals 1 oz. ?2 servings of low-fat dairy each day. ?A serving of nuts, seeds, or beans 5 times each week. ?Heart-healthy fats. Healthy fats called [place]-3 fatty acids are found in foods such as flaxseeds and coldwater fish, like sardines, salmon, and mackerel. Limit how much you eat of the following: ?Canned or prepackaged foods. ?Food that is high in trans fat, such as fried foods. ?Food that is high in saturated fat, such as fatty meat. ?Sweets, desserts, sugary drinks, and other foods with added sugar. ?Full-fat dairy products. Do not salt foods before eating. Try to eat at least 2 vegetarian meals each week. Eat more home-cooked food and less restaurant, buffet, and fast food. When eating at a restaurant, ask that your food be prepared with less salt or no salt, if possible. What foods are recommended? The items listed may not be a complete list. Talk with your dietitian about what dietary choices are best for you. Grains Whole-grain or whole-wheat bread. Whole-grain or whole-wheat pasta. Brown rice. Oatmeal. Quinoa. Bulgur. Whole-grain and low-sodium cereals. Yvette bread. Low- fat, low-sodium crackers. Whole-wheat flour tortillas. Vegetables Fresh or frozen vegetables (raw, steamed, roasted, or grilled). Low-sodium or reduced-sodium tomatoand vegetable juice. Low-sodium or reduced-sodium tomato sauce and tomato paste. Low-sodium or reduced-sodium canned vegetables. Fruits All fresh, dried, or frozen fruit. Canned fruit in natural juice (without added sugar). Meat and other protein foods Skinless chicken or turkey. Ground chicken or turkey. Pork with fat trimmed off. Fish and seafood. Egg whites. Dried beans, peas, or lentils. Unsalted nuts, nut butters, and seeds. Unsalted canned beans. Lean cuts of beef with fat trimmed off. Low-sodium, lean deli meat. Dairy Low-fat (1%) or fat-free (skim) milk. Fat-free, low-fat, or reduced-fat cheeses. Nonfat, low-sodiumricotta or cottage cheese. Low-fat or nonfat yogurt. Low-fat, low-sodium cheese. Fats and oils Soft margarine without trans fats. Vegetable oil. Low-fat, reduced-fat, or light mayonnaise and salad dressings (reduced-sodium). Canola, safflower, olive, soybean, and sunflower oils. Avocado. Seasoning and other foods Herbs. Spices. Seasoning mixes without salt. Unsalted popcorn and pretzels. Fat- free sweets. What foods are not recommended? The items listed may not be a complete list. Talk with your dietitian about what dietary choices are best for you. Grains Baked goods made with fat, such as croissants, muffins, or some breads. Dry pasta or rice meal packs. Vegetables Creamed or fried vegetables. Vegetables in a cheese sauce. Regular canned vegetables (not low-sodium or reduced-sodium). Regular canned tomato sauce and paste (not low-sodium or reduced-sodium). Regular tomato and vegetable juice (not low-sodium or reduced-sodium). Pickles. Olives. Fruits Canned fruit in a light or heavy syrup. Fried fruit. Fruit in cream or butter sauce. Meat and other protein foods Fatty cuts of meat. Ribs. Fried meat. [place]ajardo. Sausage. Bologna and other processed lunch meats. Salami. Fatback. Hotdogs. Bratwurst. Salted nuts and seeds. Canned beans with added salt. Canned or smoked fish. Whole eggs or egg yolks. Chicken or turkey with skin. Dairy Whole or 2% milk, cream, and [id number]. Whole or full-fat cream cheese. Whole-fat or sweetened yogurt. Full-fat cheese. Nondairy creamers. Whipped toppings. Processed cheese and cheese spreads. Fats and oils Butter. Stick margarine. Lard. Shortening. Ghee. [place] fat. Tropical oils, such as coconut, palm kernel, or palm oil. Seasoning and other foods Salted popcorn and pretzels. Onion salt, garlic salt, seasoned salt, table salt, and sea salt. Worcestershire sauce. Tartar sauce. Barbecue sauce. Teriyaki sauce. Soy sauce, including reduced-sodium.Steak sauce. Canned and packaged gravies. Fish sauce. Oyster sauce. Cocktail sauce. Horseradish that you find on the shelf. Ketchup. Mustard. Meat flavorings and tenderizers. Bouillon cubes. Hot sauce and Tabasco sauce. Premade or packaged marinades. Premade or packaged taco seasonings. Relishes. Regular salad dressings. Where to find more information: National Heart, Lung, and Blood [place]: www.nhlbi.nih.gov [place] [employer]: www.heart.org Summary The DASH eating plan is a healthy eating plan that has been shown to reduce high blood pressure (hypertension). It may also reduce your risk for type 2 diabetes, heart disease, and stroke. With the DASH eating plan, you should limit salt (sodium) intake to 2,300 mg a day. If you have hypertension, you may need to reduce your sodium intake to 1,500 mg a day. When on the DASH eating plan, aim to eat more fresh fruits and vegetables, whole grains, lean proteins, low-fat dairy, and heart-healthy fats. Work with your health care provider or diet and motor tune up specialist (dietitian) to adjust your eating plan to your individual calorie needs. This information is not intended to replace advice given to you by your health care provider. Make sure you discuss any questions you have with your health care provider. Document Released: 07/11/2012 Document Revised: 07/05/2018 Document Reviewed: 07/16/2017 Method [employer] Patient Education 2020 [employer]. 11/10/2022 10:32:18 Chronic Obstructive Pulmonary Disease Exacerbation, Yera-vv-Qnyi Chronic Obstructive Pulmonary Disease Exacerbation Chronic obstructive pulmonary disease (COPD) is a long-term (chronic) lung problem. In COPD, the flow of air from the lungs is limited. COPD exacerbations are times that breathing gets worse and you need more than your normal treatment. Without treatment, they can be life threatening. If they happen often, your lungs can become more damaged. If your COPD gets worse, your doctor may treat you with: Medicines. Oxygen. Different ways to clear your airway, such as using a mask. Follow these instructions at home: Medicines Take vrmu-gqy-tuetqqw and prescription medicines only as told by your doctor. If you take an antibiotic or steroid medicine, do not stop taking the medicine even if you start tofeel better. Keep up with shots (vaccinations) as told by your doctor. Be sure to get a yearly (annual) flu shot. Lifestyle Do not smoke. If you need help quitting, ask your doctor. Eat healthy foods. Exercise regularly. Get plenty of sleep. Avoid tobacco smoke and other things that can bother your lungs. Wash your hands often with soap and water. This will help keep you from getting an infection. If you cannot use soap and water, use hand senior controls engineer. During flu season, avoid areas that are crowded with people. General instructions Drink enough fluid to keep your pee (urine) clear or pale yellow. Do not do this if your doctor hastold you not to. Use a cool mist machine (vaporizer). If you use oxygen or a machine that turns medicine into a mist (nebulizer), continue to use it as told. Follow all instructions for rehabilitation. These are steps you can take to make your body work better. Keep all follow-up visits as told by your doctor. This is important. Contact a doctor if: Your COPD symptoms get worse than normal. Get help right away if: You are short of breath and it gets worse. You have trouble talking. You have chest pain. You cough up blood. You have a fever. You keep throwing up (vomiting). You feel weak or you pass out (faint). You feel confused. You are not able to sleep because of your symptoms. You are not able to do daily activities. Summary COPD exacerbations are times that breathing gets worse and you need more treatment than normal. COPD exacerbations can be very serious and may cause your lungs to become more damaged. Do not smoke. If you need help quitting, ask your doctor. Stay up-to-date on your shots. Get a flu shot every year. This information is not intended to replace advice given to you by your health care provider. Make sure you discuss any questions you have with your health care provider. Document Released: 07/11/2012 Document Revised: 07/05/2018 Document Reviewed: 08/27/2017 [employer] Patient Education 2020 [employer]. 11/10/2022 10:32:18 Acute Respiratory Failure, Adult Acute Respiratory Failure, Adult Acute respiratory failure occurs when there is not enough oxygen passing from your lungs to your body. When this happens, your lungs have trouble removing carbon dioxide from the blood. This causes your blood oxygen level to drop too low as carbon dioxide builds up. Acute respiratory failure is a medical emergency. It can develop quickly, but it is temporary if treated promptly. Your lung capacity, or how much air your lungs can hold, may improve with time, exercise, and treatment. What are the causes? There are many possible causes of acute respiratory failure, including: Lung injury. Chest injury or damage to the ribs or tissues near the lungs. Lung conditions that affect the flow of air and blood into and out of the lungs, such as pneumonia,acute respiratory distress syndrome, and cystic fibrosis. Medical conditions, such as strokes or spinal cord injuries, that affect the muscles and nerves that control breathing. Blood infection (sepsis). Inflammation of the pancreas (pancreatitis). A blood clot in the lungs (pulmonary embolism). A large-volume blood transfusion. [place]. Near-drowning. Seizure. Smoke inhalation. Reaction to medicines. Alcohol or drug overdose. What increases the risk? This condition is more likely to develop in people who have: A blocked airway. Asthma. A condition or disease that damages or weakens the muscles, nerves, bones, or tissues that are involved in breathing. A serious infection. A health problem that blocks the unconscious reflex that is involved in breathing, such as hypothyroidism or sleep apnea. A lung injury or trauma. What are the signs or symptoms? Trouble breathing is the main symptom of acute respiratory failure. Symptoms may also include: Rapid breathing. Restlessness or anxiety. Skin, lips, or fingernails that appear blue (cyanosis). Rapid heart rate. Abnormal heart rhythms (arrhythmias). Confusion or changes in behavior. Tiredness or loss of energy. Feeling sleepy or having a loss of consciousness. How is this diagnosed? Your health care provider can diagnose acute respiratory failure with a medical history and physical exam. During the exam, your health care provider will listen to your heart and check for cracklingor wheezing sounds in your lungs. Your may also have tests to confirm the diagnosis and determine what is causing respiratory failure. These tests may include: Measuring the amount of oxygen in your blood (pulse oximetry). The measurement comes from a small device that is placed on your finger, earlobe, or toe. Other blood tests to measure blood gases and to look for signs of infection. Sampling your cerebral spinal fluid or tracheal fluid to check for infections. Chest X-ray to look for fluid in spaces that should be filled with air. Electrocardiogram (ECG) to look at the heart's electrical activity. How is this treated? Treatment for this condition usually takes places in a hospital intensive care unit (ICU). Treatment depends on what is causing the condition. It may include one or more treatments until your symptoms improve. Treatment may include: Supplemental oxygen. Extra oxygen is given through a tube in the nose, a face mask, or a cat. A device such as a continuous positive airway pressure (CPAP) or bi-level positive airway pressure (BiPAP or BPAP) machine. This treatment uses mild air pressure to keep the airways open. A mask or other device will be placed over your nose or mouth. A tube that is connected to a motor will deliveroxygen through the mask. Ventilator. This treatment helps move air into and out of the lungs. This may be done with a bag and mask or a machine. For this treatment, a tube is placed in your windpipe (trachea) so air and oxygen can flow to the lungs. Extracorporeal membrane oxygenation (ECMO). This treatment temporarily takes over the function of the heart and lungs, supplying oxygen and removing carbon dioxide. ECMO gives the lungs a chance to recover. It may be used if a ventilator is not effective. Tracheostomy. This is a procedure that creates a hole in the neck to insert a breathing tube. Receiving fluids and medicines. Rocking the bed to help breathing. Follow these instructions at home: Take eyig-mlw-vcabgeh and prescription medicines only as told by your health care provider. Return to normal activities as told by your health care provider. Ask your health care provider what activities are safe for you. Keep all follow-up visits as told by your health care provider. This is important. How is this prevented? Treating infections and medical conditions that may lead to acute respiratory failure can help prevent the condition from developing. Contact a health care provider if: You have a fever. Your symptoms do not improve or they get worse. Get help right away if: You are having trouble breathing. You lose consciousness. Your have cyanosis or turn blue. You develop a rapid heart rate. You are confused. These symptoms may represent a serious problem that is an emergency. Do not wait to see if the symptoms will go away. Get medical help right away. Call your local emergency services (911 in the [place] Do not drive yourself to the hospital. This information is not intended to replace advice given to you by your health care provider. Make sure you discuss any questions you have with your health care provider. Document Released: 07/28/2014 Document Revised: 07/05/2018 Document Reviewed: 02/07/2017 [employer] Patient Education 2020 [employer]. Follow Up Care 11/08/2022 04:50:42 With:Kerrie Martins Address: [address] [place] [address]- [phone] Business (1) When:11/15/2022 09:45:00 With:Franki Rangel Address: [address] [facility] [place] [address]- Business (1) When:11/17/2022 11:00:00 [facility]04-06-2023 NoteChief Complaint SOB Reason for Consultation AECOPD History of Present Illness Pt is a 61y M with past medical history significant for severe COPD (last PFTs 09/25, FEV1 28%), chronic hypoxemic respiratory failure on 4L NC at baseline, HFpEF, CAD s/p PCI, GERD, Espino's esophagus, HLD, and HTN who presented to the ED via EMS for worsening SOB. Pt reports increasing SOB over the last two days. He denies any recent fevers, chills, chest pain, nausea, or vomiting. He has required increased use of med nebs at home. Pt required increasing oxygen flow to 4L obtain SPO2 level above 89%. Pt required multiple breathing treatments in the ED for increased work of breathing. CXR inthe ED did not reveal any acute infiltrates. He was referred to the hospitalist service for COPD exacerbation. Pulmonary was consulted to assist in management of the pt's acute on chronic hypoxemic respiratory failure. 11/09: Pt is currently on 4L NC, which is his baseline. Despite this, he reports feeling more SOB than his baseline. He has had some productive cough and had coughed up a big sputum this AM. He feels as though his breathing is tight and that he has some wheezing . He denies any fevers or chills. Pt reports that he is still smoking, usually only a few cigarettes per day. Review of Systems 12 point review of systems performed with patient, pertinent positives and negatives stated in HPI. Physical Exam Vitals & Measurements T: 36.4 ?C(Oral) TMIN: 36.4 ?C(Oral) TMAX: 36.8 ?C(Oral) HR: 63(Monitored) RR: 16 BP: 107/67 SpO2: 96% WT: 87.1 kg General: No acute distress Skin: Warm, dry Head: Atraumatic, normocephalic Neck: Trachea midline, no adenopathy, no tenderness Eye: PERRL, sclera anicteric ENMT: Moist mucous membranes Cardiovascular: Regular rate and rhythm. No murmurs, rubs, or gallops. No BLE edema. Respiratory: Diminished b/l. Slight expiratory wheeze b/l. No rhonchi or crackles. No stridor. No accessory muscle use. Chest wall: No deformity Gastrointestinal: Soft, non-tender, non-distended Back: No tenderness Extremities: No deformity Neurological: Awake and alert. Following commands. No focal deficit appreciated. Psychiatric: Cooperative. Affect appropriate for age. Images IMPRESSION: CHRONIC LUNG DISEASE. NO EVIDENCE OF ACUTE CHEST DISEASE. CLINICAL HISTORY: Chest pain. Shortness of breath. Smoker. COMPARISON: 07/05/2022. COMMENT: The heart is normal in size. The mediastinum is unremarkable. There is hyperinflation and hyperlucency of the lungs, findings consistent with COPD. No superimposed infiltration nor pleural effusion is evident. Partially included within the euwul-yr-csjg is an intramedullary festus and screws associated with the proximal left humerus. No significant change is noted when compared to the prior exam. Ordering Provider: Farzad Castro Assessment/Plan 1. Acute exacerbation of chronic obstructive pulmonary disease (COPD) (J44.1: Chronic obstructive pulmonary disease with (acute) exacerbation) AECOPD H/o severe COPD (last PFTs 09/25, FEV1 28%) on 4L NC at baseline Active smoker Home regimen: Trilogy, Albuterol Plan: - Currently on 4L NC - Titrate O2 for sats 89-94% - Continue bronchodilators - Continue solumedrol 40mg q8h - RVP neg, sputum cx NGTD, procal neg - Continue empiric azithromycin - Encourage IS and OOB - Encourage smoking cessation 9. 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) Heparin sq Orders: methylPREDNISolone, 40 mg = 1 mL, Injection, IV Push, q8hrFT, Routine, Start date 11/09/22 16:00:00EDT Problem List/Past Medical History Ongoing Espino's esophagus Chronic GERD Cigarette smoker COPD - Chronic obstructive pulmonary disease Dyslipidemia Dysphagia Epigastric pain History of colon polyps History of rectal polyps Home oxygen supply HTN (hypertension) Nicotine abuse Pulmonary fibrosis Schatzki's ring Unintentional weight loss Historical Cholecystectomy COPD (Chronic Obstructive Pulmonary Disease) Assessment Test scale FHx: hypercholesterolemia Procedure/Surgical History Cardiac catheterization, left heart (05/24/2022), Cardiac catheterization, left heart (07/18/2021),EGD - Esophagogastroduodenoscopy (04/04/2021), Catheterization of left heart, Cholecystectomy, hernia reapir, left shoulder/upper arm ORIF. Medications Inpatient acetaminophen 325 mg Tab, 650 mg= 2 tab(s), Oral, q6hr, PRN Al hydroxide/Mg hydroxide/simethicone 200 mg-200 mg-20 mg/5 mL oral suspension, 30 mL, Oral, q6hr, PRN albuterol 0.083% Inh Sharon 3 mL, 2.5 mg= 3 mL, Inhalation, q2hr, PRN atorvastatin 20 mg Tab, 20 mg= 1 tab(s), Oral, Daily azithromycin additive + Sodium Chloride 0.9% intravenous solution 250 mL DuoNeb 2.5 mg-0.5 mg/3 mL Soln-Inh, 3 mL, Inhalation, QID escitalopram 10 mg Tab, 10 mg= 1 tab(s), Oral, Daily heparin 5000 units/mL Inj, 5000 unit(s)= 1 mL, SubCutaneous, BID hydrALAZIN (more content not included)...[facility]:Result Comment: Electronically Signed By: Randi Hollis PA-C, Festus Jaimes\.br\Date and Time Signed: 11/09/22 13:37 [id number] NotePT evaluation completed with an AM-PAC six clicks score of . Pt. displays independence with bed mobility, transfers, and level surface ambulation x 44 ft. at this time. Pt. displays good static and dynamic standing balance with no safety concerns with functional mobility. Pt. would be functionally safe to return home once medically stable. No further PT needs.[facility] 11-08-2022 NoteChief Complaint Pt. came here with the squad d/t SOB and chest pain that started 2 days ago and got worst today. Hx. of COPD. Wear oxygen at 4lpm, got breathing tx. and solu medrol. Denies cough, fever and any othersx. History of Present Illness 61-year-old male with past medical history of COPD with chronic respiratory failure with hypoxemia on 3 L nasal cannula mostly at nighttime, CAD, chronic GERD, dyslipidemia, nicotine dependence, pulmonary fibrosis Patient presented to hospital by EMS due to shortness of breath. Pt reports increasing SOB over the last two days. Patient denies any recent fevers, chills, chest pain, nausea, vomiting. Has required increased use of med nebs at home. Patient required increasing oxygen flow to 4 L a minute per nasal cannula to contain SPO2 level above 89%.Pt required multiple med nebs for increased work of breathing. He was referred to hospitalistservice for COPD exacerbation. Review of Systems Additional ROS info: Except as noted in the above Review of Systems and in the History of Present Illness all other systems have been reviewed and are negative or noncontributory. Scoring Christian Fall Risk Score: 35 (11/08/22) Physical Exam Vitals & Measurements T: 36 ?C(Tympanic) HR: 60(Monitored) RR: 18 BP: 105/77 SpO2: 95% HT: 185 cm WT: 86 kg General: Alert and oriented, No acute distress. Eye: Pupils are equal, round and reactive to light. HENT: Normocephalic, Normal hearing, No pharyngeal erythema. Neck: Supple, Non-tender, No lymphadenopathy. Respiratory: Lungs diminished throughout all lobes. Exp wheezed. Respirations are non-labored on oxygen at 4l/min per cannula, Breath sounds are equal, Symmetrical chest wall expansion. Cardiovascular: Normal rate, Regular rhythm, Good pulses equal in all extremities, Normal peripheral perfusion, No edema. Gastrointestinal: Soft, Non-tender, Non-distended, Normal bowel sounds. Musculoskeletal Normal range of motion. Normal strength. Integumentary: Warm, Dry, Intact. Neurologic: Alert, Oriented, No focal deficits. Psychiatric: Cooperative, Appropriate mood & affect, Normal judgment. Lab Results WBC: 11.2 E9/L High (11/08/22 05:08:00) RBC: 4.4 E12/L (11/08/22 05:08:00) HGB: 14.2 gm/dL (11/08/22 05:08:00) Hct: 43.5 % (11/08/22 05:08:00) MCV: 99.1 fL (11/08/22 05:08:00) MCH: 32.5 pg (11/08/22 05:08:00) MCHC: 32.7 gm/dL (11/08/22 05:08:00) RDW: 13.9 % (11/08/22 05:08:00) Platelet: 186 E9/L (11/08/22 05:08:00) MPV: 10.2 fL (11/08/22 05:08:00) Neutro Auto: 45.9 % (11/08/22 05:08:00) Lymph Auto: 41.8 % (11/08/22 05:08:00) [place] Auto: 8.3 % (11/08/22 05:08:00) Eos Auto: 3.7 % (11/08/22 05:08:00) Basophil Auto: 0.3 % (11/08/22 05:08:00) Neutro Absolute: 5.1 E9/L (11/08/22 05:08:00) Lymph Absolute: 4.7 E9/L High (11/08/22 05:08:00) [place] Absolute: 0.9 E9/L (11/08/22 05:08:00) Eos Absolute: 0.4 E9/L (11/08/22 05:08:00) Basophil Absolute: 0 E9/L (11/08/22 05:08:00) PT: 12.9 second(s) High (11/08/22 05:08:00) INR: 1.2 (11/08/22 05:08:00) PTT: 36.6 second(s) High (11/08/22 05:08:00) Glucose Lvl: 115 mg/dL (11/08/22 05:08:00) BUN: 10 mg/dL (11/08/22 05:08:00) Creatinine: 0.8 mg/dL (11/08/22 05:08:00) eGFR: >60 (11/08/22 05:08:00) eGFR AA: >60 (11/08/22 05:08:00) BUN/Creat Ratio: 12 (11/08/22 05:08:00) Sodium Lvl: 138 mmol/L (11/08/22 05:08:00) Potassium Lvl: 4.2 mmol/L (11/08/22 05:08:00) Chloride: 104 mmol/L (11/08/22 05:08:00) CO2: 27 mmol/L (11/08/22 05:08:00) AGAP: 11 mEq/L (11/08/22 05:08:00) Calcium Lvl: 8.8 mg/dL Low (11/08/22 05:08:00) Troponin: 10.2 pg/mL Low (11/08/22 05:08:00) BNP: 25 pg/mL (11/08/22 05:08:00) Rapid COVID Ag: Not Detected (11/08/22 05:03:00) Rapid COV Int NEG Ctl: Pass (11/08/22 05:03:00) Rapid COV Int POS Ctl: Pass (11/08/22 05:03:00) First Test: Unknown (11/08/22 05:03:00) Employed in Healthcare: NO (11/08/22 05:03:00) Symptomatic as defined by CDC: YES (11/08/22 05:03:00) Hospitalized?: Unknown (11/08/22 05:03:00) ICU: NO (11/08/22 05:03:00) Resides in a Congregate Care Setting: NO (11/08/22 05:03:00) ?: NO (11/08/22 05:03:00) Assessment/Plan PLAN: 1. Acute on chronic respiratory failure (J96.20: Acute and chronic respiratory failure, unspecifiedwhether with hypoxia or hypercapnia) With hypoxemia Chronically on 3 L of oxygen at home but has required 4 L prior to and since admission. Med nebs, flutter, I-S, Mucinex Methylprednisolone IV Blood, sputum cultures pending Pulm oxygen Consider pulm consult if worsens 2. Acute exacerbation of chronic obstructive pulmonary disease (COPD) (J44.1: Chronic obstructive pulmonary disease with (acute) exacerbation) 2/2 acute exacerbation COPD d/t acute /chronic bronchitis. hx pulmonary fibrosis. Trelegy Azithromycin IV See #[address] 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 CAD (coronary artery disease) (I25.10: Atherosclerotic heart disease of match-[place]-be-n[place] band coronary artery without angina pectoris) Statin (more content not included)...[facility] HospitalComment on above:Result Comment: Electronically Signed By: Elizabeth PATRICK\.br\Date and Time Signed: 11/08/22 11:50 EDT\.br\Electronically Co- Signed By: Kevyn Tapia MD\.br\Date and Time Co-Signed: 11/08/22 12:30 EDT 11-08-2022 NoteSputum unsatisfactory for culture. Microscopic evaluation >25 Epithelial cells/ lpf indicates significant upper respiratory contamination. Submit another specimen.[facility]12-08-2022 Evaluation + Plan note Future Scheduled Tests Laboratory* CBC w/ Auto Diff 07/13/22 * Comprehensive Metabolic Panel 07/13/22 [facility] 12-08-2022 Hospital Discharge instructions Patient Education 07/13/2022 09:41:58 Dysphagia Dysphagia Dysphagia is trouble swallowing. This condition occurs when solids and liquids stick in a person's throat on the way down to the stomach, or when food takes longer to get to the stomach than usual. You may have problems swallowing food, liquids, or both. You may also have pain while trying to swallow. It may take you more time and effort to swallow something. What are the causes? This condition may be caused by: Muscle problems. They may make it difficult for you to move food and liquids through the esophagus,which is the tube that connects your mouth to your stomach. Blockages. You may have ulcers, scar tissue, or inflammation that blocks the normal passage of foodand liquids. Causes of these problems include: ?Acid reflux from your stomach into your esophagus (gastroesophageal reflux). ?Infections. ?Radiation treatment for cancer. ?Medicines taken without enough fluids to wash them down into your stomach. Stroke. This can affect the nerves and make it difficult to swallow. Nerve problems. These prevent signals from being sent to the muscles of your esophagus to squeeze (contract) and move what you swallow down to your stomach. Globus pharyngeus. This is a common problem that involves a feeling like something is stuck in yourthroat or a sense of trouble with swallowing, even though nothing is wrong with the swallowing passages. Certain conditions, such as cerebral palsy or Parkinson's disease. What are the signs or symptoms? Common symptoms of this condition include: A feeling that solids or liquids are stuck in your throat on the way down to the stomach. Pain while swallowing. Coughing or gagging while trying to swallow. Other symptoms include: Food moving back from your stomach to your mouth (regurgitation). Noises coming from your throat. Chest discomfort with swallowing. A feeling of fullness when swallowing. Drooling, especially when the throat is blocked. Heartburn. How is this diagnosed? This condition may be diagnosed by: Barium X-ray. In this test, you will swallow a white liquid that sticks to the inside of your esophagus. X-ray images are then taken. Endoscopy. In this test, a flexible telescope is inserted down your throat to look at your esophagus and your stomach. CT scans and an MRI. How is this treated? Treatment for dysphagia depends on the cause of this condition, such as: If the dysphagia is caused by acid reflux or infection, medicines may be used. They may include antibiotics and heartburn medicines. If the dysphagia is caused by problems with the muscles, swallowing therapy may be used to help youstrengthen your swallowing muscles. You may have to do specific exercises to strengthen the musclesor stretch them. If the dysphagia is caused by a blockage or mass, procedures to remove the blockage may be done. You may need surgery and a feeding tube. You may need to make diet changes. Ask your health care provider for specific instructions. Follow these instructions at home: Medicines Take kojw-woq-svdqkyo and prescription medicines only as told by your health care provider. If you were prescribed an antibiotic medicine, take it as told by your health care provider. Do notstop taking the antibiotic even if you start to feel better. Eating and drinking Follow any diet changes as told by your health care provider. Work with a diet and motor tune up specialist (dietitian) to create an eating plan that will help you get the nutrients you need in order to stay healthy. Eat soft foods that are easier to swallow. Cut your food into small pieces and eat slowly. Take small bites. Eat and drink only when you are sitting upright. Do not drink alcohol or caffeine. If you need help quitting, ask your health care provider. General instructions Check your weight every day to make sure you are not losing weight. Do not use any products that contain nicotine or tobacco, such as cigarettes, e- cigarettes, and chewing tobacco. If you need help quitting, ask your health care provider. Keep all follow-up visits as told by your health care provider. This is important. Contact a health care provider if you: Lose weight because you cannot swallow. Cough when you drink liquids. Cough up partially digested food. Get help right away if you: Cannot swallow your saliva. Have shortness of breath, a fever, or both. Have a hoarse voice and also have trouble swallowing. Summary Dysphagia is trouble swallowing. This condition occurs when solids and liquids stick in a person's throat on the way down to the stomach. You may cough or gag while trying to swallow. Dysphagia has many possible causes. Treatment for dysphagia depends on the cause of the condition. Keep all follow-up visits as told by your health care provider. This is important. This information is not intended to replace advice given to you by your health care provider. Make sure you discuss any questions you have with your health care provider. Document Released: 07/20/2001 Document Revised: 12/17/2019 Document Reviewed: 12/17/2019 [employer] Patient Education 2019 [employer]. Follow Up Care 06/09/2022 09:07:49 With:Sharri Che CNP Address: When:3 months [facility] 12-03-2022 Evaluation + Plan noteExtracted from: Title:Discharge Note Author:Vinnie FARIA MD Dylan e:07/08/22 Stable Discharge To, Anticipated II - Home with responsible caregiver Discharged to - Home independently Home Discharge Diet(s): Regular (07/08/22 09:33:00) Prescriptions aspirin 81 mg Oral EC Tab, 81 mg= 1 tab(s), Oral, Daily azithromycin 500 mg oral tablet, 500 mg= 1 tab(s), Oral, Daily isosorbide mononitrate 30 mg ER Tab, 30 mg= 1 tab(s), Oral, Daily Medrol 4 mg Tab, 1 packet(s), Oral, As Directed Mucinex 600 mg Tab-ER, 1200 mg= 2 tab(s), Oral, BID Pantoprazole [address] Tab, 40 mg= 1 tab(s), Oral, Daily ranolazine 500 mg oral ER Tab, 500 mg= 1 tab(s), Oral, BID Home atorvastatin 20 mg Tab, 20 mg= 1 tab(s), Oral, Daily DuoNeb 2.5 mg-0.5 mg/3 mL Soln-Inh, 3 mL, Inhalation, QID, PRN escitalopram 10 mg Tab, 10 mg= 1 tab(s), Oral, Daily Nitro 0.4 mg Tab, 1 tab(s), SubLingual, q5min, PRN Trelegy Ellipta inhalation powder, 1 puff(s), Inhalation, Daily Ventolin HFA 90 mcg/inh Aerosol, 2 puff(s), Inhalation, q4hr, PRN With When Contact Information Franki Rangel 07/20/2022 01:00 PM EST [address] [facility] [address] [facility] (1) Additional Instructions: Chronic Obstructive Pulmonary Disease Discharge time > 30 min Extracted from: Title:Admission H & P Author:Sami DUMONT MD ate:07/05/22 61-year-old male with past m edical history of COPD with chronic respiratory failure with hypoxemia on 3 L nasal cannula mostly at nighttime, CAD status post recent PCI, chronic GERD, dyslipidemia, nicotine dependence, pulmonary fibrosis presents from home due to shortness of breath. 1. Acute exacerbation of chronic obstructive pulmonary disease (COPD) (J44.1: Chronic obstructive pulmonary disease with (acute) exacerbation) Acute exacerbation of COPD secondary to underlying illness Admit patient under inpatient level of care as anticipate that patient will require greater than 2 midnight stay Supplimental O2 to keep saturations >90% Duonebs q6h PRN Incentive spirometry, flutter valve IV Solu-Medrol Azithromycin for anti-inflammatory purposes check walking pulse Ox once clinically improved c/w nebulizer treatment Sputum culture 2. Chronic respiratory failure with hypoxia (J96.11: Chronic respiratory failure with hypoxia) Baseline 3 L requirement Breathing treatment Treatment as above 3. Troponin level elevated (R77.8: Other specified abnormalities of plasma proteins) Significantly elevated troponin Downtrending from the last time PCI from May is noted We will hold off on cardiology consultation unless patient develops any chest pain Continue with aspirin, statin, nitrate and Ranexa Ordered: aspirin, 81 mg = 1 tab(s), Tab-EC, Oral, Daily, Routine, Start date 07/05/22 9:00:00 EST, 07/05/22 4:45:00 EST atorvastatin, 20 mg = 1 tab(s), Tab, Oral, Daily, Routine, Start date 07/05/22 9:00:00 EST, 07/05/22 4:45:00 EST isosorbide mononitrate, 30 mg = 1 tab(s), Tab-ER, Oral, Daily, Routine, Start date 07/05/22 9:00:00 EST, 07/05/22 4:45:00 EST ranolazine, 500 mg = 1 tab(s), Tab-ER, Oral, BID, Routine, Start date 07/05/22 9:00:00 EST, 07/05/22 4:45:00 EST 4. Dyslipidemia (E78.5: Hyperlipidemia, unspecified) Atorvastatin 5. HTN (hypertension) (I10: Essential (primary) hypertension) Imdur 6. Nicotine abuse (Z72.0: Tobacco use) Recommended cessation 7. Pulmonary fibrosis (J84.10: Pulmonary fibrosis, unspecified) Treatment as above 8. Espino's esophagus (K22.70: Espino's esophagus without dysplasia) Protonix Ordered: pantoprazole, 40 mg = 1 tab(s), Tab-EC, Oral, Daily, Routine, Start date 07/05/22 9:00:00 EST, 07/05/22 4:45:00 EST 9. DVT prophylaxis (Z29.9: Encounter for prophylactic measures, unspecified) Heparin twice a day Orders: acetaminophen, 650 mg = 2 tab(s), Tab, Oral, q4hr PRN Pain, Routine, Start date 07/05/22 2:57:00 EST, 07/05/22 2:57:00 EST albuterol, 2.5 mg, 3 mL, Soln-Inh, Inhalation, q2hr PRN Shortness of breath or wheezing, STAT, Start date 07/05/22 2:57:00 EST albuterol-ipratropium, 3 mL, Soln-Inh, Inhalation, QID, STAT, Start date 07/05/22 2:57:00 EST azithromycin, 500 mg = 2 tab(s), Tab, Oral, q24hr for 5 day(s), Stop date 07/11/22 3:59:00 EST, Routine, Start date 07/06/22 4:00:00 EST escitalopram, 10 mg = 1 tab(s), Tab, Oral, Daily, Routine, Start date 07/05/22 9:00:00 EST, 07/05/22 4:45:00 EST guaifenesin, 1,200 mg = 2 tab(s), Tab-ER, Oral, BID, Routine, Start date 07/05/22 9:00:00 EST, 07/05/22 2:57:00 EST heparin, 5,000 unit(s) = 1 mL, Injection, SubCutaneous, BID, Routine, Start date 07/05/22 9:00:00 EST, 07/05/22 2:57:00 EST methylPREDNISolone, 40 mg = 1 mL, Injection, IV, q6hrFT, Routine, Start date 07/05/22 0:00:00 EST, 07/05/22 2:57:00 EST ondansetron, 4 mg = 2 mL, Injection, IV Push, q6hr PRN Nausea/Vomiting, Routine, Start date 07/05/22 2:57:00 EST, 07/05/22 2:57:00 EST Activity As Tolerated Basic Metabolic Panel Below the Knee Intermittent Pneumatic Compression Device CBC w/ Auto Diff Consult to Clinical 3D Artist Consult to Dietitian Adult Intake and Output Notify Provider Vital Signs Oxygen - Wean Oxygen Therapy Physical Therapy Evaluate Patient, Develop a Plan of Care and Implement Plan Place in Status Prealbumin Precautions PT & PTT Pulse Oximetry Regular Diet Saline Lock Insert Sputum Culture Vital Signs Weight Plan discussed with patient at bedside in ER bed 5 This report was transcribed using voice recognition software. Every effort was made to ensure accuracy, however, inadvertently computerized shot man mistakes may be present. Dr. Sami Dumont Hospitalist at [facility] Extracted from: Title:ED Note Author:Jose Antonio Don te:07/05/22 1. Acute exacerbation of chr onic obstructive pulmonary disease (COPD) (J44.1: Chronic obstructive pulmonary disease with (acute) exacerbation) 2. Chronic respiratory failure with hypoxia (J96.11: Chronic respiratory failure with hypoxia) 3. Troponin level elevated (R77.8: Other specified abnormalities of plasma proteins) 4. Dyslipidemia (E78.5: Hyperlipidemia, unspecified) 5. HTN (hypertension) (I10: Essential (primary) hypertension) 6. Nicotine abuse (Z72.0: Tobacco use) 7. Pulmonary fibrosis (J84.10: Pulmonary fibrosis, unspecified) 8. Espino's esophagus (K22.70: Espino's esophagus without dysplasia) 9. DVT prophylaxis (Z29.9: Encounter for prophylactic measures, unspecified) Orders: albuterol, 5 mg, 6 mL, Soln-Inh, Inhalation, Once, Stop date 07/05/22 1:29:00 EST, STAT, Start date 07/05/22 1:29:00 EST albuterol-ipratropium, 3 mL, Soln-Inh, Inhalation, Once, Stop date 07/05/22 1:29:00 EST, STAT, Start date 07/05/22 1:29:00 EST azithromycin, Tab, Misc, Once, Stop date 07/05/22 3:24:43 EST, Physician Stop, 07/05/22 3:24:43 EST azithromycin, 500 mg = 2 tab(s), Tab, Oral, Once, Stop date 07/05/22 2:55:00 EST, STAT, Start date 07/05/22 2:55:00 EST, 07/05/22 2:55:00 EST methylPREDNISolone, Injection, Misc, Once, Stop date 07/05/22 3:24:34 EST, Physician Stop, 07/05/22 3:24:34 EST Automated Diff B-Type Natriuretic Peptide Basic Metabolic Panel Blood Culture Charcoal Blood Culture Charcoal CBC w/ Auto Diff Continuous Pulse Oximetry ED Cardiac Monitoring ED Physician consult Hospitalist for continued care eGFR Influenza A&B Ag Oxygen Therapy PT & PTT Rapid COVID Antigen ([facility] [place] Saline Lock Insert Troponin 0 Hr. Troponin 3 Hr. Troponin 6 Hr. XR Chest Single View Future Appointments Appointment Date:07/13/2022 09:00:00 AM Scheduled Provider:Sharri Che CNP Location[place] Appointment Type:[facility] Follow Up Diagnostic Tests Pending * Sputum Culture 07/05/22 [facility]12-03-2022 Hospital Discharge instructions Patient Education 07/08/2022 11:17:32 Acute Respiratory Failure, Adult Acute Respiratory Failure, Adult Acute respiratory failure occurs when there is not enough oxygen passing from your lungs to your body. When this happens, your lungs have trouble removing carbon dioxide from the blood. This causes your blood oxygen level to drop too low as carbon dioxide builds up. Acute respiratory failure is a medical emergency. It can develop quickly, but it is temporary if treated promptly. Your lung capacity, or how much air your lungs can hold, may improve with time, exercise, and treatment. What are the causes? There are many possible causes of acute respiratory failure, including: Lung injury. Chest injury or damage to the ribs or tissues near the lungs. Lung conditions that affect the flow of air and blood into and out of the lungs, such as pneumonia,acute respiratory distress syndrome, and cystic fibrosis. Medical conditions, such as strokes or spinal cord injuries, that affect the muscles and nerves that control breathing. Blood infection (sepsis). Inflammation of the pancreas (pancreatitis). A blood clot in the lungs (pulmonary embolism). A large-volume blood transfusion. [place]. Near-drowning. Seizure. Smoke inhalation. Reaction to medicines. Alcohol or drug overdose. What increases the risk? This condition is more likely to develop in people who have: A blocked airway. Asthma. A condition or disease that damages or weakens the muscles, nerves, bones, or tissues that are involved in breathing. A serious infection. A health problem that blocks the unconscious reflex that is involved in breathing, such as hypothyroidism or sleep apnea. A lung injury or trauma. What are the signs or symptoms? Trouble breathing is the main symptom of acute respiratory failure. Symptoms may also include: Rapid breathing. Restlessness or anxiety. Skin, lips, or fingernails that appear blue (cyanosis). Rapid heart rate. Abnormal heart rhythms (arrhythmias). Confusion or changes in behavior. Tiredness or loss of energy. Feeling sleepy or having a loss of consciousness. How is this diagnosed? Your health care provider can diagnose acute respiratory failure with a medical history and physical exam. During the exam, your health care provider will listen to your heart and check for cracklingor wheezing sounds in your lungs. Your may also have tests to confirm the diagnosis and determine what is causing respiratory failure. These tests may include: Measuring the amount of oxygen in your blood (pulse oximetry). The measurement comes from a small device that is placed on your finger, earlobe, or toe. Other blood tests to measure blood gases and to look for signs of infection. Sampling your cerebral spinal fluid or tracheal fluid to check for infections. Chest X-ray to look for fluid in spaces that should be filled with air. Electrocardiogram (ECG) to look at the heart's electrical activity. How is this treated? Treatment for this condition usually takes places in a hospital intensive care unit (ICU). Treatment depends on what is causing the condition. It may include one or more treatments until your symptoms improve. Treatment may include: Supplemental oxygen. Extra oxygen is given through a tube in the nose, a face mask, or a cat. A device such as a continuous positive airway pressure (CPAP) or bi-level positive airway pressure (BiPAP or BPAP) machine. This treatment uses mild air pressure to keep the airways open. A mask or other device will be placed over your nose or mouth. A tube that is connected to a motor will deliveroxygen through the mask. Ventilator. This treatment helps move air into and out of the lungs. This may be done with a bag and mask or a machine. For this treatment, a tube is placed in your windpipe (trachea) so air and oxygen can flow to the lungs. Extracorporeal membrane oxygenation (ECMO). This treatment temporarily takes over the function of the heart and lungs, supplying oxygen and removing carbon dioxide. ECMO gives the lungs a chance to recover. It may be used if a ventilator is not effective. Tracheostomy. This is a procedure that creates a hole in the neck to insert a breathing tube. Receiving fluids and medicines. Rocking the bed to help breathing. Follow these instructions at home: Take gvch-ajl-lddocsn and prescription medicines only as told by your health care provider. Return to normal activities as told by your health care provider. Ask your health care provider what activities are safe for you. Keep all follow-up visits as told by your health care provider. This is important. How is this prevented? Treating infections and medical conditions that may lead to acute respiratory failure can help prevent the condition from developing. Contact a health care provider if: You have a fever. Your symptoms do not improve or they get worse. Get help right away if: You are having trouble breathing. You lose consciousness. Your have cyanosis or turn blue. You develop a rapid heart rate. You are confused. These symptoms may represent a serious problem that is an emergency. Do not wait to see if the symptoms will go away. Get medical help right away. Call your local emergency services (911 in the [place] Do not drive yourself to the hospital. This information is not intended to replace advice given to you by your health care provider. Make sure you discuss any questions you have with your health care provider. Document Released: 07/28/2014 Document Revised: 07/05/2018 Document Reviewed: 02/07/2017 [employer] Patient Education 2020 [employer] 07/08/2022 09:32:57 Chronic Obstructive Pulmonary Disease Chronic Obstructive Pulmonary Disease Chronic obstructive pulmonary disease (COPD) is a long-term (chronic) condition that affects the lungs. COPD is a general term that can be used to describe many different lung problems that cause lung swelling (inflammation) and limit airflow, including chronic bronchitis and emphysema. If you haveCOPD, your lung function will probably never return to normal. In most cases, it gets worse over time. However, there are steps you can take to slow the progression of the disease and improve your quality of life. What are the causes? This condition may be caused by: Smoking. This is the most common cause. Certain genes passed down through families. What increases the risk? The following factors may make you more likely to develop this condition: Secondhand smoke from cigarettes, pipes, or cigars. Exposure to chemicals and other irritants such as fumes and dust in the work environment. Chronic lung conditions or infections. What are the signs or symptoms? Symptoms of this condition include: Shortness of breath, especially during physical activity. Chronic cough with a large amount of thick mucus. Sometimes the cough may not have any mucus (dry cough). Wheezing. Rapid breaths. Solomon or bluish discoloration (cyanosis) of the skin, especially in your fingers, toes, or lips. Feeling tired (fatigue). Weight loss. Chest tightness. Frequent infections. Episodes when breathing symptoms become much worse (exacerbations). Swelling in the ankles, feet, or legs. This may occur in later stages of the disease. How is this diagnosed? This condition is diagnosed based on: Your medical history. A physical exam. You may also have tests, including: Lung (pulmonary) function tests. This may include a spirometry test, which measures your ability toexhale properly. Chest X-ray. CT scan. Blood tests. How is this treated? This condition may be treated with: Medicines. These may include inhaled rescue medicines to treat acute exacerbations as well as long-term, or maintenance, medicines to prevent flare- ups of COPD. ?Bronchodilators help treat COPD by dilating the airways to allow increased airflow and make your breathing more comfortable. ?Steroids can reduce airway inflammation and help prevent exacerbations. Smoking cessation. If you smoke, your health care provider may ask you to quit, and may also recommend therapy or replacement products to help you quit. Pulmonary rehabilitation. This may involve working with a team of health care providers and specialists, such as respiratory, occupational, and physical therapists. Exercise and physical activity. These are beneficial for nearly all people with COPD. Nutrition therapy to gain weight, if you are underweight. Oxygen. Supplemental oxygen therapy is only helpful if you have a low oxygen level in your blood (hypoxemia). Lung surgery or transplant. Palliative care. This is to help people with COPD feel comfortable when treatment is no longer working. Follow these instructions at home: Medicines Take uhil-xrm-uxjaoec and prescription medicines (inhaled or pills) only as told by your health care provider. Talk to your health care provider before taking any cough or allergy medicines. You may need to avoid certain medicines that dry out your airways. Lifestyle If you are a smoker, the most important thing that you can do is to stop smoking. Do not use any products that contain nicotine or tobacco, such as cigarettes and e-cigarettes. If you need help quitting, ask your health care provider. Continuing to smoke will cause the disease to progress faster. Avoid exposure to things that irritate your lungs, such as smoke, chemicals, and fumes. Stay active, but balance activity with periods of rest. Exercise and physical activity will help you maintain your ability to do things you want to do. Learn and use relaxation techniques to manage stress and to control your breathing. Get the right amount of sleep and get quality sleep. Most adults need 7 or more hours per night. Eat healthy foods. Eating smaller, more frequent meals and resting before meals may help you maintain your strength. Controlled breathing Learn and use controlled breathing techniques as directed by your health care provider. Controlled breathing techniques include: Pursed lip breathing. Start by breathing in (inhaling) through your nose for 1 second. Then, purse your lips as if you were going to whistle and breathe out (exhale) through the pursed lips for 2 seconds. Diaphragmatic breathing. Start by putting one hand on your abdomen just above your waist. Inhale slowly through your nose. The hand on your abdomen should move out. Then purse your lips and exhale slowly. You should be able to feel the hand on your abdomen moving in as you exhale. Controlled coughing Learn and use controlled coughing to clear mucus from your lungs. Controlled coughing is a series of short, progressive coughs. The steps of controlled coughing are: 1.Lean your head slightly forward. 2.Breathe in deeply using diaphragmatic breathing. 3.Try to hold your breath for 3 seconds. 4.Keep your mouth slightly open while coughing twice. 5.Spit any mucus out into a tissue. 6.Rest and repeat the steps once or twice as needed. General instructions Make sure you receive all the vaccines that your health care provider recommends, especially the pneumococcal and influenza vaccines. Preventing infection and hospitalization is very important when you have COPD. Use oxygen therapy and pulmonary rehabilitation if directed to by your health care provider. If yourequire home oxygen therapy, ask your health care provider whether you should purchase a pulse oximeter to measure your oxygen level at home. Work with your health care provider to develop a COPD action plan. This will help you know what steps to take if your condition gets worse. Keep other chronic health conditions under control as told by your health care provider. Avoid extreme temperature and humidity changes. Avoid contact with people who have an illness that spreads from person to person (is contagious), such as viral infections or pneumonia. Keep all follow-up visits as told by your health care provider. This is important. Contact a health care provider if: You are coughing up more mucus than usual. There is a change in the color or thickness of your mucus. Your breathing is more labored than usual. Your breathing is faster than usual. You have difficulty sleeping. You need to use your rescue medicines or inhalers more often than expected. You have trouble doing routine activities such as getting dressed or walking around the house. Get help right away if: You have shortness of breath while you are resting. You have shortness of breath that prevents you from: ?Being able to talk. ?Performing your usual physical activities. You have chest pain lasting longer than 5 minutes. Your skin color is more blue (cyanotic) than usual. You measure low oxygen saturations for longer than 5 minutes with a pulse oximeter. You have a fever. You feel too tired to breathe normally. Summary Chronic obstructive pulmonary disease (COPD) is a long-term (chronic) condition that affects the lungs. Your lung function will probably never return to normal. In most cases, it gets worse over time. However, there are steps you can take to slow the progression of the disease and improve your quality of life. Treatment for COPD may include taking medicines, quitting smoking, pulmonary rehabilitation, and changes to diet and exercise. As the disease progresses, you may need oxygen therapy, a lung transplant, or palliative care. To help manage your condition, do not smoke, avoid exposure to things that irritate your lungs, stay up to date on all vaccines, and follow your health care provider's instructions for taking medicines. This information is not intended to replace advice given to you by your health care provider. Make sure you discuss any questions you have with your health care provider. Document Released: 05/02/2006 Document Revised: 07/05/2018 Document Reviewed: 08/27/2017 [employer] Patient Education 2020 [employer]. Follow Up Care 07/05/2022 01:11:23 With:Franki Rangel Address: [address] [place], [place] [address]UCHE [place]QUIS [phone] (1) When:07/20/2022 13:00:00 [facility]10-20-2022 Evaluation + Plan noteExtracted from: Title:Progress Note * Author:Shikha De Los Santos MD Date:05/25/22 Impression and Plan 1. Acute coronary syndrome. Cardiac catheterization again showed no significant obstructive disease. CT scan showed no PE. Echocardiogram normal this is likely due to severe coronary spasm or syndrome X 2. Tobacco use 3. COPD and questionable pulmonary fibrosis Plan 1. Continue aspirin, nitrate and Ranexa with consideration to add Cardizem on outpatient basis 2. Patient can be discharged home Extracted from: Title:Cardiovascular Admission H&P * Author:Dale Goetz MD Date:05/24/22 Impression and Plan 1. Acute coronary syndrome. Interesting in of the patient underwent cardiac catheterization 9 months ago which showed no significant obstructive coronary artery disease. Patient suspected that he may have coronary spasm. He was placed on vasodilator 2. Tobacco use 3. COPD and questionable pulmonary fibrosis Plan 1. Considering dynamic ST-T changes and elevated cardiac enzyme and based on his DAVID score it appears invasive evaluation appears to be appropriate. Risk, benefit and alternative reviewed with patient at great length he understood and agreed we will proceed with cardiac catheterization 2. Aggressive coronary risk factor modification 3. Continue with antiplatelet therapy and consider adding low-dose beta-ignacio if significant disease present otherwise we will avoid that considering some concern about coronary spasm in the past 4. I reviewed the above with the patient he understood and agreed and I also reviewed the case quickly with Dr. Mendoza who will be on hand in case intervention is needed Extracted from: Title:Admission H & P Author:Vinnie FARIA MD te:05/24/22 1. Acute non-ST elevation my ocardial infarction (NSTEMI) (I21.4: Non-ST elevation (NSTEMI) myocardial infarction) Inpatient admission Patient will require more than 2 nights in the hospital Cardiac telemetry Serial EKG Troponin x3 Aspirin daily Heparin infusion per protocol Echocardiogram Resume Lipitor daily Resume his insulin by nitrate and [facility] consult 2. HTN (hypertension) (I10: Essential (primary) hypertension) Resume isosorbide mononitrate 3. Dyslipidemia (E78.5: Hyperlipidemia, unspecified) Resume Lipitor 4. COPD - Chronic obstructive pulmonary disease (J44.9: Chronic obstructive pulmonary disease, unspecified) Albuterol and Atrovent nebulizer 5. Chronic GERD (K21.9: Gastro-esophageal reflux disease without esophagitis) PPI 6. Nicotine abuse (Z72.0: Tobacco use) Nicotine patch 7. Pulmonary fibrosis (J84.10: Pulmonary fibrosis, unspecified) Albuterol and Atrovent nebulizer every 6 hours as needed 8. DVT prophylaxis (Z29.9: Encounter for prophylactic measures, unspecified) Heparin Extracted from: Title:ED Note Author:Catherine Gordon Dylan e:05/24/22 Acute chest pain (R07.9: Mag st pain, unspecified) Elevated troponin (R77.8: Other specified abnormalities of plasma proteins) Orders: Automated Diff B-Type Natriuretic Peptide Basic Metabolic Panel CBC w/ Auto Diff ECG 12 Lead Adult ECG 12 Lead Adult ED Cardiac Monitoring ED Physician consult Hospitalist for continued care eGFR Extra SST Tube Oxygen Saturation Oxygen Therapy PT & PTT Saline Lock Insert Troponin 0 Hr. Troponin 3 Hr. Troponin 6 Hr. Troponin 9 Hr. XR Chest Single View Addendum by David Abarca DO on May 24, 2022 14:06:15 EDT Serial ECGs: 0925- large T waves in V2 through V4. ST depression V2 through V4. Appears to have an intraventricular conduction delay. Enlarged T waves compared to previous EKG, otherwise similar. 0955- large T waves have normalized. No STEMI 1036- no dynamic changes. Addendum by David Abarca DO on May 24, 2022 14:14:29 EDT Lab called with a critical troponin value 2302. Repeat EKG was performed. Sinus bradycardia. No ST elevation. Patient reexamined at the bedside. He remains hemodynamically stable. He is resting comfortably. He arouses easily. He has no chest pain or shortness of breath at this time. Case was discussed with the on-call interventionalist Dr. Mendoza. He will defer to [facility] r[facility] clinical documentation as he is a patient of Dr. Pedro. I also called and notified the hospitalist of the elevated troponin level. He has already discussed with Dr. De Los Santos. Dr. De Los Santos to the bedside, notified nurses he will take to laboratory geneticist. David Abarca DO [facility]10-20-2022 Hospital Discharge instructions Patient Education 05/25/2022 10:40:49 Coronary Artery Disease, Male Coronary Artery Disease, Male Coronary artery disease (CAD) is a condition in which the arteries that lead to the heart (coronaryarteries) become narrow or blocked. The narrowing or blockage can lead to decreased blood flow to the heart. Prolonged reduced blood flow can cause a heart attack (myocardial infarction or VA). This condition may also be called coronary heart disease. Because CAD is the leading cause of in men, it is important to understand what causes this condition and how it is treated. What are the causes? CAD is most often caused by atherosclerosis. This is the buildup of fat and cholesterol (plaque) onthe inside of the arteries. Over time, the plaque may narrow or block the artery, reducing blood flow to the heart. Plaque can also become weak and break off within a coronary artery and cause a sudden blockage. Other less common causes of CAD include: A blood clot or a piece of a blood clot or other substance that blocks the flow of blood in a coronary artery (embolism). A tearing of the artery (spontaneous coronary artery dissection). An enlargement of an artery (aneurysm). Inflammation (vasculitis) in the artery wall. What increases the risk? The following factors may make you more likely to develop this condition: Age. Men over age 45 are at a greater risk of CAD. Family history of CAD. Gender. Men often develop CAD earlier in life than women. High blood pressure (hypertension). Diabetes. High cholesterol levels. Tobacco use. Excessive alcohol use. Lack of exercise. A diet high in saturated and trans fats, such as fried food and processed meat. Other possible risk factors include: High stress levels. Depression. Obesity. Sleep apnea. What are the signs or symptoms? Many people do not have any symptoms during the early stages of CAD. As the condition progresses, symptoms may include: Chest pain (angina). The pain can: ?Feel like crushing or squeezing, or like a tightness, pressure, fullness, or heaviness in the chest. ?Last more than a few minutes or can stop and recur. The pain tends to get worse with exercise or stress and to fade with rest. Pain in the arms, neck, jaw, ear, or back. Unexplained heartburn or indigestion. Shortness of breath. Nausea or vomiting. Sudden light-headedness. Sudden cold sweats. Fluttering or fast heartbeat (palpitations). How is this diagnosed? This condition is diagnosed based on: Your family and medical history. A physical exam. Tests, including: ?A test to check the electrical signals in your heart (electrocardiogram). ?Exercise stress test. This looks for signs of blockage when the heart is stressed with exercise, such as running on a treadmill. ?Pharmacologic stress test. This test looks for signs of blockage when the heart is being stressed with a medicine. ?Blood tests. ?Coronary angiogram. This is a procedure to look at the coronary arteries to see if there is any blockage. During this test, a dye is injected into your arteries so they appear on an X-ray. ?Coronary artery CT scan. This CT scan helps detect calcium deposits in your coronary arteries. Calcium deposits are an indicator of CAD. ?A test that uses sound waves to take a picture of your heart (echocardiogram). ?Chest X-ray. How is this treated? This condition may be treated by: Healthy lifestyle changes to reduce risk factors. Medicines such as: ?Antiplatelet medicines and blood-thinning medicines, such as aspirin. These help to prevent blood clots. ?Nitroglycerin. ?Blood pressure medicines. ?Cholesterol-lowering medicine. Coronary angioplasty and stenting. During this procedure, a thin, flexible tube is inserted througha blood vessel and into a blocked artery. A balloon or similar device on the end of the tube is inflated to open up the artery. In some cases, a small, mesh tube (stent) is inserted into the artery to keep it open. Coronary artery bypass surgery. During this surgery, veins or arteries from other parts of the bodyare used to create a bypass around the blockage and allow blood to reach your heart. Follow these instructions at home: Medicines Take [id number] and prescription medicines only as told by your health care provider. Do not take the following medicines unless your health care provider approves: ?NSAIDs, such as ibuprofen, naproxen, or celecoxib. ?Vitamin supplements that contain vitamin A, vitamin E, or both. Lifestyle Follow an exercise program approved by your health care provider. Aim for 150 minutes of moderate exercise or 75 minutes of vigorous exercise each week. Maintain a healthy weight or lose weight as approved by your health care provider. Learn to manage stress or try to limit your stress. Ask your health care provider for suggestions if you need help. Get screened for depression and seek treatment, if needed. Do not use any products that contain nicotine or tobacco, such as cigarettes, e- cigarettes, and chewing tobacco. If you need help quitting, ask your health care provider. Do not use illegal drugs. Eating and drinking Follow a heart-healthy diet. A dietitian can help educate you about healthy food options and changes. In general, eat plenty of fruits and vegetables, lean meats, and whole grains. Avoid foods high in: ?Sugar. ?Salt (sodium). ?Saturated fat, such as processed or fatty meat. ?Trans fat, such as fried foods. Use healthy cooking methods such as roasting, grilling, broiling, baking, poaching, steaming, or stir-frying. Do not drink alcohol if your health care provider tells you not to drink. If you drink alcohol: ?Limit how much you have to 0 2 drinks per day. ?Be aware of how much alcohol is in your drink. In the [place] one drink equals one 12 oz bottle of beer (355 mL), one 5 oz glass of wine (148 mL), or one 1 oz glass of hard liquor (44 mL). General instructions Manage any other health conditions, such as hypertension and diabetes. These conditions affect yourheart. Your health care provider may ask you to monitor your blood pressure. Ideally, your blood pressure should be below 130/80. Keep all follow-up visits as told by your health care provider. This is important. Get help right away if: You have pain in your chest, neck, ear, arm, jaw, stomach, or back that: ?Lasts more than a few minutes. ?Is recurring. ?Is not relieved by taking medicine under your tongue (sublingual nitroglycerin). You have profuse sweating without cause. You have unexplained: ?Heartburn or indigestion. ?Shortness of breath or difficulty breathing. ?Fluttering or fast heartbeat (palpitations). ?Nausea or vomiting. ?Fatigue. ?Feelings of nervousness or anxiety. ?Weakness. ?Diarrhea. You have sudden light-headedness or dizziness. You faint. You feel like hurting yourself or think about taking your own life. These symptoms may represent a serious problem that is an emergency. Do not wait to see if the symptoms will go away. Get medical help right away. Call your local emergency services (911 in the [place] Do not drive yourself to the hospital. Summary Coronary artery disease (CAD) is a condition in which the arteries that lead to the heart (coronaryarteries) become narrow or blocked. The narrowing or blockage can lead to a heart attack. Many people do not have any symptoms during the early stages of CAD. CAD can be treated with lifestyle changes, medicines, surgery, or a combination of these treatments. This information is not intended to replace advice given to you by your health care provider. Make sure you discuss any questions you have with your health care provider. Document Released: 02/17/2015 Document Revised: 04/11/2019 Document Reviewed: 04/01/2019 [employer] Patient Education GFRANQ. Follow Up Care 05/24/2022 09:25:59 With:Franki Rangel Address: [address] [place] [id number] Business (1) When:06/05/2022 10:30:00 [facility] Coronary artery disease involving match-e-be-n[place]-she-wish band coronary artery of match-[place] band heart with other form of angina pectoris (CMS/HCC)- Primary Prinzmetal angina (CMS/HCC) Prinzmetal angina Mixed hyperlipidemia Chronic obstructive pulmonary disease, unspecified COPD type (CMS/HCC) Current every day smoker documented in this encounter [facility] Work Phone: Hospital course Narrative No data available for this section [facility] No data available for this section [facility] No data available for this section [facility])* Consultation (Routine) - Authorized Specialty Diagnoses / Procedures Referred By Contwero t Referred To Contact Cardiology Diagnoses Coronary artery disease involving [employer]she[place]ish band coronary artery of match[place] band heart with other form of angina pectoris (CMS/HCC) Prinzmetal angina (CMS/HCC) Procedures Follow Up In Cardiology Ami Wood, JEREL [address] [facility] [address] [place] [address] Referral ID Status Reason Start Date Expiration Date V isits Requested Visits Authorized [id number] Authorized 05/08/2023 11/04/2023 1 1 [facility] Work Phone: Summary Purpose Family History No Family History Records FoundUnknown Family Member Name Dates Details Family history of cardiac pa cemaker: Mother(V17.49, Z82.49) Status:Active Unknown Family Member Name Dates Details Family history of cardiac pa cemaker: Mother(V17.49, Z82.49) Status:Active Unknown Family Member Name Dates Details Family history of cardiac pa cemaker: Mother(V17.49, Z82.49) Status:Active Unknown Family Member Name Dates Details Family history of cardiac pa cemaker: Mother(V17.49, Z82.49) Status:Active Unknown Family Member Name Dates Details Family history of cardiac pa cemaker: Mother(V17.49, Z82.49) Status:Active Unknown Family Member Name Dates Details Family history of cardiac pa cemaker: Mother(V17.49, Z82.49) Status:Active Unknown Family Member Name Dates Details Family history of cardiac pa cemaker: Mother(V17.49, Z82.49) Status:Active Advance Directives No Advanced Directives Records FoundNo Advanced Directives Records FoundNo Advanced Directives Records FoundNo Advanced Directives Records Found Additional Source Comments (unrecognized sect ion and content) No Status Records FoundNo Status Records FoundNo Status Records FoundNo Status Records Found INFORMATION SOURCE (unrecogn ized section and content) DATE CREATED AUTHOR 01/18/2021 [employer] DATE CREATED AUTHOR AUTHOR'S ORGANIZ ATION 08/18/2022 [employer] DATE CREATED AUTHOR AUTHOR'S ORGANIZ ATION 02/09/2023 [facility] DATE CREATED AUTHOR AUTHOR'S ORGANIZ ATION 10/26/2023 Eldon Miranda [facility] Patient Care team informatio n (unrecognized section and content) Ladle Cleaner Relationship Specialty Start Date End Date Franki Rangel, DO [address] [address] PCP - General 08/17/22 Ladle Cleaner Relationship Specialty Start Date End Date Franki Rangel, DO [address] [place] [id number] PCP - General 08/17/22 Reason for Visit (unrecogniz ed section and content) Reason Comments Annual Exam OVER DUE NEED MEDS FOR RECORDS PERTAINING TO PATIENTS WHO ARE OR HAVE BEEN ENROLLED IN A CHEMICAL DEPENDENCY/SUBSTANCEABUSE PROGRAM, SOME INFORMATION MAY BE OMITTED. This clinical summary was aggregated from multiple sources. Caution should be exercised in using it in the provision of clinical care. This summary normalizes information from multiple sources, and as a consequence, information in this document may materially change the coding, format and clinical context of patient data. In addition, data may be omitted in some cases. CLINICAL DECISIONS SHOULD BE BASED ON THE PRIMARY CLINICAL RECORDS. [email or web address] provides no warranty or guarantee of the accuracy or completeness of information in this document.
--- NOTE | 2023-11-13 10:02 | CT_ITS ---
[address] [address] Patient Name: STEFAN VELASQUEZ MRN: [id number] date: 1960 Sex: M Assigned Patient Location: CT Current Patient Location: Accession/Order Number: [id number] Exam Date: 11/13/2023 09:53 Report Date: 11/14/2023 07:42 At the request of: MARY HURST Procedure: CT chest wo con EXAMINATION: CT chest wo con HISTORY: Multiple Pulmonary Nodules R91.8 COMPARISON: 05/31/2023 TECHNIQUE: Multi-planar CT images were created with IV contrast. Axial, Coronal, and Sagittal images. Dose reduction techniques were achieved by using automated exposure control and/or adjustment of mA and/or kV according to patient size and/or use of iterative reconstruction technique. FINDINGS: LUNGS: Peripheral honeycombing and interlobular lobular septal thickening, stable from the prior exam suggesting UIP/pulmonary fibrosis. Scattered linear opacities are stable, chronic scarring is favored. Focal linear thickening in the right lower lobe axial image 87 appears stable. Slight improvement in left lower lobe ill-defined opacity. No new pulmonary nodule or mass PLEURA: No mass, effusion, or pneumothorax. VASCULATURE: No abnormality. REHAN: No mass or adenopathy. MEDIASTINUM: No mass or adenopathy. CARDIAC: No enlargement, pericardial thickening, or significant calcification. AORTA: No aneurysm or dissection. CHEST WALL: No mass or axillary adenopathy. BONES: No bone lesion or fracture. Slightly exaggerated thoracic kyphosis with degenerative changes. Mild wedging of the T8 and T9 vertebral bodies, stable LIMITED ABDOMEN: No suspicious findings. Limited images of the upper abdomen. OTHER: Negative. CT/CT chest wo con IMPRESSION: Stable exam. No new pulmonary nodule or mass Electronically authenticated by: AQUILES AZAR Date: 11/14/2023 07:42
== END 2023-11-13 09:49 | disposition home or self-care (01) ==
LOC: CT 09:48
PROVIDERS: Visit Provider Internal Medicine
DX: R91.8 Other nonspecific abnormal finding of lung field (principal)
CPT/HCPCS: 71250

== ENCOUNTER 2024-04-10 12:57 | Outpatient (OUT) | payer OTHER, SELFPAY ==
--- NOTE | 2024-04-10 13:00 | RT_ITS ---
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 Findings were considered accurate and reproducible, with exception of FVC which did not meet ATS standards. Both pre- and post-bronchodilator values utilized for spirometry. Spirometry (based on pre-bronchodilator values): -FEV1/FVC: Reduced @ 22% -FEV1: Very severely reduced @ 20% -FVC: Reduced @ 68% -There is no significant bronchodilator response. Lung volumes by plethysmography: -RV: Increased @ 283% -TLC: Increased @ 135% Diffusion capacity: -DLCO: Very severe reduction @ when corrected for Hb g/dL Flow-volume loop: -Very severe obstructive pattern Impressions: -Very severe obstruction without a bronchodilator response in spirometry. An elevated RV and TLC suggest air trapping and hyperinflation respectively. There is a very severely reduced diffusion capacity. Overall study compatible with very severe emphysema. Clinical correlation required. Electronically Signed On 04-15-2024 17:16:29 EDT by Jerman Elizabeth
[2024-04-10 13:01] LABS: Hemoglobin 14.7 g/dL (14.0-18.0)
[2024-04-10] MEDS: ALBUTEROL SULFATE 2.5 MG/3 ML VIAL NEB IH (14:08)
--- NOTE | 2024-04-15 18:22 | W.PM.PROCNOT ---
Date of procedure: 04/15/24 Procedure: 6 Minute Walk Date: 04/10/2024 Indication: Chronic hypoxic respiratory failure MMRC: 4 Resting data: -BP: 103/67 -HR: 92 -SpO2: 92 -FiO2: Room air -Hiral: 5 Description: 6 minute walk was initiated according to standard protocol. It was stopped after 1.5 minutes when patient dropped to 87%. The patient was rested and placed on 2L/min supplemental O2. A new 6 minute walk was initiated according to standard protocol. Patient ambulated for a total of 3 minutes as he could no longer walk , with the lowest SpO2 at 93%, the highest heart rate at 97, and highest Hiral 6. Recovery data: -BP: 115/73 -HR: 97 -SpO2: 96 -FiO2: 2L/min O2 -Hiral: 5 Ambulation: Patient ambulated a total of 121.9m which is 24% predicted. There was 1 stop reported. Impressions: Ambulatory desaturation requiring 2L/min O2 to recover. Reduced walk distance. Recommendations: 2L/min supplemental O2 with ambulation. This may be insufficient as patient ceased 3 minutes early due to fatigue. Clinical correlation required.
== END 2024-04-10 12:58 | disposition home or self-care (01) ==
LOC: CARD 12:58
PROVIDERS: Visit Provider Internal Medicine
DX: J96.11 Chronic respiratory failure with hypoxia (principal); J84.10 Pulmonary fibrosis, unspecified; J43.2 Centrilobular emphysema
CPT/HCPCS: 36415; 85018; 94060; 94618; 94726; 94729